=== PATIENT | male | born 1935 | race Caucasian/White ===

== ENCOUNTER 2018-02-28 01:00 | Inpatient (IN) | payer MEDICARE, BC ==
--- NOTE | 2018-02-28 01:58 | EDM.PDOC ---
ED HPI GENERAL MEDICAL PROBLEM - General Chief Complaint: Lower Extremity Injury/Pain Stated Complaint: right knee pain Time Seen by Provider: 02/28/18 01:10 Source of Information: Reports: Patient History Limitations: Reports: No Limitations - History of Present Illness INITIAL COMMENTS - FREE TEXT/NARRATIVE: Patient presents via ambulance with right knee pain, general weakness and mild fever. He couldn't get up from the couch tonight; his was helping him but he ended up on the floor and couldn't get up so they called the ambulance. He denies falling to the floor or any injury or pain from that. His right knee started hurting yesterday when he was helping his up from falling in the garage. He has had knee effusions on the right that have been drained in the past. 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(s) Right Knee Pain Score (Numeric/FACES): 8 - Related Data Allergies Allergy/AdvReac Type Severity Reaction Status Date / Time No Known Drug Allergies Allergy Other Verified 02/28/18 01:52 Home Meds: Home Meds Hydrochlorothiazide 25 mg PO DAILY 06/22/14 [History] Lisinopril [Prinivil] 20 mg PO DAILY 06/22/14 [History] Sertraline HCl 100 mg PO DAILY 06/22/14 [History] Simvastatin 20 mg PO BEDTIME 06/22/14 [History] oxyCODONE HCl [Oxycodone HCl] 10 mg PO DAILY 06/22/14 [History] Fluticasone Propionate [Flonase] 2 spray NASBOTH DAILY 12/24/14 [History] Metoprolol Succinate [Toprol XL] 25 mg PO DAILY 02/17/16 [History] Polyethylene Glycol 3350 [MiraLAX] 17 gm PO DAILY PRN 02/17/16 [History] Polyvinyl Alcohol [Tears Again] 1 drop OP ASDIRECTED 02/17/16 [History] Warfarin [Coumadin] 2.5 mg PO MOFR 03/27/16 [History] Famotidine [Pepcid AC] 20 mg PO DAILY #30 tablet 03/29/16 [Rx] metFORMIN [Glucophage] 1,000 mg PO BIDMEALS 05/22/16 [History] Folic Acid 1 mg PO DAILY 02/28/18 [History] Lidocaine 5% 1 applic TOP DAILY PRN 02/28/18 [History] Mirtazapine 7.5 mg PO BEDTIME 02/28/18 [History] Warfarin Sodium 5 mg PO SUTUWETHSA 02/28/18 [History] glyBURIDE [Micronase] 1.25 mg PO DAILY 02/28/18 [History] oxyCODONE 15 mg PO BEDTIME 02/28/18 [History] Past Medical History HEENT History: Reports: Cataract, Hard of Hearing, Impaired Vision Cardiovascular History: Reports: Afib, Arrhythmia, Blood Clots/VTE/DVT, Bypass, Heart Murmur, High Cholesterol, Hypertension, [place], Prior Cardiac Arrest Respiratory History: Reports: Pneumonia, Recurrent Gastrointestinal History: Reports: Chronic Constipation, Hemorrhoids Musculoskeletal History: Reports: Arthritis, Back Pain, Chronic, Gout Other Musculoskeletal History: 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 Neurological History: Reports: CVA Psychiatric History: Reports: Depression, Mood Swings Endocrine/Metabolic History: Reports: Diabetes, Type II - Past Surgical History HEENT Surgical History: Reports: Cataract Surgery Cardiovascular Surgical History: Reports: Coronary Artery Bypass, Other (See Below) GI Surgical History: Reports: Appendectomy, Colonoscopy, Other (See Below) Neurological Surgical History: Reports: Lumbar Spine, Spinal Fusion, Other (See Below) Musculoskeletal Surgical History: Reports: Other (See Below) Social & Family History - Tobacco Use Smoking Status *Q: Former Smoker Years of Tobacco use: 10 Packs/Tins Daily: 1 Used Tobacco, but Quit: Yes Month/Year Tobacco Last Used: august Second Hand Smoke Exposure: No - Alcohol Use Days Per Week of Alcohol Use: 0 - Recreational Drug Use Recreational Drug Use: No - Living Situation & Occupation Living situation: Reports: Occupation: Retired Review of Systems - Review of Systems Review Of Systems: See Below Constitutional: Reports: Fever. Denies: Chills Eyes: Reports: No Symptoms Ears: Reports: No Symptoms Nose: Reports: No Symptoms Mouth/Throat: Denies: Throat Swelling, Muffled Voice Respiratory: Denies: Shortness of Breath, Cough Cardiovascular: Denies: Chest Pain, Syncope GI/Abdominal: Denies: Diarrhea, Vomiting Genitourinary: Reports: Incontinence (and increased frequency) Musculoskeletal: Reports: Joint Pain (right knee) Skin: Denies: Cyanosis, Jaundice, Mottled, Pallor, Diaphoresis Neurological: Reports: Difficulty Walking, Weakness. Denies: Confusion, Seizure , Syncope, Trouble Speaking ED EXAM, GENERAL - Physical Exam Exam: See Below Exam Limited By: No Limitations General Appearance: Alert, WD/WN, No Apparent Distress Eye Exam: Bilateral Eye: EOMI, Normal Inspection, PERRL Ears: Normal External Exam, Hearing Grossly Normal Nose: Normal Inspection, No Blood Throat/Mouth: Normal Inspection, Normal Lips, Normal Voice, No Airway Compromise Head: Atraumatic, Normocephalic Neck: Normal Inspection, Full Range of Motion Respiratory/Chest: No Respiratory Distress, Lungs Clear, Normal Breath Sounds, No Accessory Muscle Use. No: Crackles, Rales, Rhonchi, Wheezing, Stridor Cardiovascular: Irregularly Irregular GI/Abdominal: Normal Bowel Sounds, Soft, Non-Tender, No Organomegaly, No Distention Back Exam: No: CVA Tenderness (L), CVA Tenderness (R) Extremities: Leg Pain (right lateral knee but not red or swollen. ROM is okay.) . No: Joint Swelling, Increased Warmth Neurological: Alert, Oriented, Normal Cognition, No Motor/Sensory Deficits Psychiatric: Normal Affect, Normal Mood Skin Exam: Warm, Dry, Intact, Normal Color, No Rash Course - Vital Signs Last Recorded V/S: Last Vital Signs Temp 100.7 F H 02/28/18 01:12 Pulse 100 02/28/18 01:12 Resp 18 02/28/18 01:12 BP 135/58 L 02/28/18 01:12 Pulse Ox 99 02/28/18 01:12 - Orders/Labs/Meds Orders: Active Orders 24 hr Category Date Time Status Patient Status Manage Transfer [TRANSFER] Routine ADT 02/28/18 03:20 Ordered Patient Status [ADT] Routine ADT 02/28/18 03:16 Ordered Knee 3V Rt [CR] Routine Exams 02/28/18 01:15 Taken CULTURE BLOOD [BC] Stat Lab 02/28/18 02:33 Received CULTURE BLOOD [BC] Stat Lab 02/28/18 02:44 Received CULTURE URINE [RM] Stat Lab 02/28/18 02:00 Received UA W/MICROSCOPIC [URIN] Stat Lab 02/28/18 02:00 Ordered Blood Culture x2 Reflex Set [OM.PC] Stat Oth 02/28/18 02:11 Ordered Labs: Laboratory Tests 02/28/18 02/28/18 02/28/18 Range/Units 01:43 01:43 02:00 WBC 15.6 H (5.0-10.0) 10^3/uL RBC 3.47 L (4.50-6.00) 10^6/uL Hgb 10.6 L (13.0-17.0) g/dL Hct 30.8 L (40.0-52.0) % MCV 88.7 D (82.0-92.0) fL MCH 30.5 (27.0-31.0) pg MCHC 34.4 (32.0-36.0) g/dL RDW 12.5 (11.5-14.5) % Plt Count 207 (150-300) 10^3/uL MPV 9.8 (7.4-10.4) fL Neut % (Auto) 72.8 H (50.0-70.0) % Lymph % (Auto) 16.7 L (20.0-40.0) % [place] % (Auto) 9.1 H (2.0-8.0) % Eos % (Auto) 0.8 L (1.0-3.0) % Baso % (Auto) 0.6 (0.0-1.0) % Neut # (Auto) 11.4 H (2.5-7.0) 10^3/uL Lymph # (Auto) 2.6 (1.0-4.0) 10^3/uL [place] # (Auto) 1.4 H (0.1-0.8) 10^3/uL Eos # (Auto) 0.1 (0.1-0.3) 10^3/uL Baso # (Auto) 0.1 (0.0-0.1) 10^3/uL Sodium 141 (136-145) mmol/L Potassium 3.9 (3.3-5.3) mmol/L Chloride 103 (98-115) mmol/L Carbon Dioxide 27.3 (21.0-32.0) mmol/L BUN 32 H (6-25) mg/dL Creatinine 1.35 H (0.51-1.17) mg/dL Est Cr Clr Drug Dosing 44.93 mL/min Estimated GFR (MDRD) 51 mL/min Glucose 160 H (70-110) mg/dL Lactic Acid (0.4-2.0) mmol/L Calcium 8.9 (8.7-10.3) mg/dL C-Reactive Protein 5.1 H (0.0-0.9) mg/dL Specimen Type Urinblad Urine Color Yellow (YELLOW) Urine Appearance Slightly cloudy H (CLEAR) Urine pH 5.0 (5.0-9.0) Ur Specific [place] 1.025 (1.005-1.030) Urine Protein Negative (NEGATIVE) mg/dL Urine Glucose (UA) Negative (NEGATIVE) mg/dL Urine Ketones Trace H (NEGATIVE) mg/dL Urine Occult Blood Moderate H (NEGATIVE) Urine Nitrite Negative (NEGATIVE) Urine Bilirubin Negative (NEGATIVE) Urine Urobilinogen 0.2 (0.2-1.0) E.U./dL Ur Leukocyte Esterase Negative (NEGATIVE) Urine RBC 75-100 H /HPF Urine WBC 0-5 /HPF Ur Epithelial Cells Rare /LPF Urine Bacteria Not seen (NONE TO FEW) /HPF Urine Mucus Rare H (NEGATIVE) /LPF 02/28/18 Range/Units 02:33 WBC (5.0-10.0) 10^3/uL RBC (4.50-6.00) 10^6/uL Hgb (13.0-17.0) g/dL Hct (40.0-52.0) % MCV (82.0-92.0) fL MCH (27.0-31.0) pg MCHC (32.0-36.0) g/dL RDW (11.5-14.5) % Plt Count (150-300) 10^3/uL MPV (7.4-10.4) fL Neut % (Auto) (50.0-70.0) % Lymph % (Auto) (20.0-40.0) % [place] % (Auto) (2.0-8.0) % Eos % (Auto) (1.0-3.0) % Baso % (Auto) (0.0-1.0) % Neut # (Auto) (2.5-7.0) 10^3/uL Lymph # (Auto) (1.0-4.0) 10^3/uL [place] # (Auto) (0.1-0.8) 10^3/uL Eos # (Auto) (0.1-0.3) 10^3/uL Baso # (Auto) (0.0-0.1) 10^3/uL Sodium (136-145) mmol/L Potassium (3.3-5.3) mmol/L Chloride (98-115) mmol/L Carbon Dioxide (21.0-32.0) mmol/L BUN (6-25) mg/dL Creatinine (0.51-1.17) mg/dL Est Cr Clr Drug Dosing mL/min Estimated GFR (MDRD) mL/min Glucose (70-110) mg/dL Lactic Acid 3.0 H (0.4-2.0) mmol/L Calcium (8.7-10.3) mg/dL C-Reactive Protein (0.0-0.9) mg/dL Specimen Type Urine Color (YELLOW) Urine Appearance (CLEAR) Urine pH (5.0-9.0) Ur Specific [place] (1.005-1.030) Urine Protein (NEGATIVE) mg/dL Urine Glucose (UA) (NEGATIVE) mg/dL Urine Ketones (NEGATIVE) mg/dL Urine Occult Blood (NEGATIVE) Urine Nitrite (NEGATIVE) Urine Bilirubin (NEGATIVE) Urine Urobilinogen (0.2-1.0) E.U./dL Ur Leukocyte Esterase (NEGATIVE) Urine RBC /HPF Urine WBC /HPF Ur Epithelial Cells /LPF Urine Bacteria (NONE TO FEW) /HPF Urine Mucus (NEGATIVE) /LPF - Re-Assessments/Exams Free Text/Narrative Re-Assessment/Exam: 02/28/18 03:32 Elevated WBC, ANC, CRP, Lactic acid. Discussed findings with Dr. Richardson who accepted for admission. Patient remained stable throughout ER course. Departure - Departure Time of Disposition: 03:30 Disposition: Admitted As Inpatient 66 Condition: Good Clinical Impression: Afib, Atrial fibrillation and flutter, Leukocytosis Fever Qualifiers: Fever type: unspecified Qualified Code(s): R50.9 - Fever, unspecified - Discharge Information Forms: ED Department Discharge - My Orders Last 24 Hours: My Active Orders 02/28/18 01:15 Knee 3V Rt [CR] Routine 02/28/18 02:00 CULTURE URINE [RM] Stat UA W/MICROSCOPIC [URIN] Stat 02/28/18 02:11 Blood Culture x2 Reflex Set [OM.PC] Stat 02/28/18 02:33 CULTURE BLOOD [BC] Stat 02/28/18 02:44 CULTURE BLOOD [BC] Stat 02/28/18 03:16 Patient Status [ADT] Routine 02/28/18 03:20 Patient Status Manage Transfer [TRANSFER] Routine - Assessment/Plan Last 24 Hours: My Active Orders 02/28/18 01:15 Knee 3V Rt [CR] Routine 02/28/18 02:00 CULTURE URINE [RM] Stat UA W/MICROSCOPIC [URIN] Stat 02/28/18 02:11 Blood Culture x2 Reflex Set [OM.PC] Stat 02/28/18 02:33 CULTURE BLOOD [BC] Stat 02/28/18 02:44 CULTURE BLOOD [BC] Stat 02/28/18 03:16 Patient Status [ADT] Routine 02/28/18 03:20 Patient Status Manage Transfer [TRANSFER] Routine
[2018-02-28] MEDS ORDERED: Polyethylene Glycol 3350 Powder 17 GM Packet PO PRN (04:14)
[2018-02-28] MEDS ORDERED: POLYVINYL ALCOHOL OP SCH (04:14)
[2018-02-28] MEDS ORDERED: methylPREDNISolone Sodium Succinate 125 MG/2 ML SDV IVPUSH ONE (04:14)
[2018-02-28] MEDS ORDERED: cefTRIAXone 1 GM Vial IVPUSH ONE (04:14)
[2018-02-28] MEDS ORDERED: Warfarin 5 MG Tab PO SCH ×3 (04:14→12:15)
[2018-02-28] MEDS ORDERED: Acetaminophen 325 MG Tab PO PRN (04:15)
[2018-02-28] MEDS ORDERED: Lidocaine 5% 700 MG Patch TRDERM PRN (04:45)
[2018-02-28] MEDS: Metoprolol Succinate 25 MG Tab.ER PO SCH (08:44)
[2018-02-28] MEDS: oxyCODONE 5 MG Tab PO SCH ×2 (08:46→20:20)
[2018-02-28] MEDS: Hydrochlorothiazide 25 MG Tab PO SCH (08:46)
[2018-02-28] MEDS: Folic Acid 1 MG Tab PO SCH (08:46)
[2018-02-28] MEDS: Sertraline 50 MG Tab PO SCH (08:47)
[2018-02-28] MEDS: Lisinopril 20 MG Tab PO SCH (08:47)
[2018-02-28] MEDS: metFORMIN 500 MG Tab PO SCH (08:48)
[2018-02-28] MEDS ORDERED: GLYBURIDE 1.25 MG PO SCH (09:00)
[2018-02-28] MEDS ORDERED: Fluticasone Propionate Nasal Spray 16 GM Bottle NASBOTH SCH (09:00)
[2018-02-28] MEDS ORDERED: Famotidine 20 MG Tab PO SCH (09:00)
[2018-02-28] MEDS ORDERED: Fluticasone Propionate Nasal Spray 16 GM Bottle NASBOTH PRN (09:30)
[2018-02-28] MEDS ORDERED: glyBURIDE 5 MG Tab PO SCH ×2 (09:30)
--- NOTE | 2018-02-28 10:19 | PCM.HP ---
H&P History of Present Illness - General Date of Service: 02/28/18 Admit Problem/Dx: Admission Diagnosis/Problem Admission Diagnosis/Problem Fever Source of Information: Patient, Old Records, RN History Limitations: Reports: No Limitations Right Knee Pain Score (Numeric/FACES): 4 - Related Data Allergies/Adverse Reactions: Allergies Allergy/AdvReac Type Severity Reaction Status Date / Time No Known Drug Allergies Allergy Other Verified 02/28/18 01:52 Home Medications: Home Meds Hydrochlorothiazide 25 mg PO DAILY 06/22/14 [History] Lisinopril [Prinivil] 20 mg PO DAILY 06/22/14 [History] Sertraline HCl 100 mg PO DAILY 06/22/14 [History] Simvastatin 20 mg PO BEDTIME 06/22/14 [History] oxyCODONE HCl [Oxycodone HCl] 10 mg PO DAILY 06/22/14 [History] Fluticasone Propionate [Flonase] 2 spray NASBOTH DAILY PRN 12/24/14 [History] Metoprolol Succinate [Toprol XL] 25 mg PO DAILY 02/17/16 [History] Polyethylene Glycol 3350 [MiraLAX] 17 gm PO DAILY PRN 02/17/16 [History] Polyvinyl Alcohol [Tears Again] 1 drop OP ASDIRECTED PRN 02/17/16 [History] Warfarin [Coumadin] 2.5 mg PO MOFR 03/27/16 [History] Famotidine [Pepcid AC] 20 mg PO DAILY #30 tablet 03/29/16 [Rx] metFORMIN [Glucophage] 1,000 mg PO BIDMEALS 05/22/16 [History] Folic Acid 1 mg PO DAILY 02/28/18 [History] Lidocaine 5% 1 applic TOP DAILY PRN 02/28/18 [History] Mirtazapine 7.5 mg PO BEDTIME 02/28/18 [History] Warfarin Sodium 5 mg PO SUTUWETHSA 02/28/18 [History] glyBURIDE [Micronase] 1.25 mg PO DAILY 02/28/18 [History] oxyCODONE 15 mg PO BEDTIME 02/28/18 [History] Past Medical History HEENT History: Reports: Cataract, Hard of Hearing, Impaired Vision Cardiovascular History: Reports: Afib, Arrhythmia, Blood Clots/VTE/DVT, Bypass, Heart Murmur, High Cholesterol, Hypertension, [place], Prior Cardiac Arrest Respiratory History: Reports: Pneumonia, Recurrent Gastrointestinal History: Reports: Chronic Constipation, Hemorrhoids Musculoskeletal History: Reports: Arthritis, Back Pain, Chronic, Gout Other Musculoskeletal History: 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 Neurological History: Reports: CVA Psychiatric History: Reports: Depression, Mood Swings Endocrine/Metabolic History: Reports: Diabetes, Type II Hematologic History: Reports: Anticoagulation Therapy - Infectious Disease History Infectious Disease History: Reports: Measles, Mumps - Past Surgical History HEENT Surgical History: Reports: Cataract Surgery Cardiovascular Surgical History: Reports: Coronary Artery Bypass, Other (See Below) GI Surgical History: Reports: Appendectomy, Colonoscopy, Other (See Below) Neurological Surgical History: Reports: Lumbar Spine, Spinal Fusion, Other (See Below) Musculoskeletal Surgical History: Reports: Other (See Below) Social & Family History - Tobacco Use Smoking Status *Q: Former Smoker Years of Tobacco use: 10 Packs/Tins Daily: 1 Used Tobacco, but Quit: Yes Month/Year Tobacco Last Used: august Second Hand Smoke Exposure: No - Caffeine Use Caffeine Use: Reports: Soda - Alcohol Use Days Per Week of Alcohol Use: 0 - Recreational Drug Use Recreational Drug Use: No - Living Situation & Occupation Living situation: Reports: Occupation: Retired H&P Review of Systems - Review of Systems: Review Of Systems: See Below General: Reports: Weakness, Night Sweats HEENT: Reports: Other (Heart appearing) Pulmonary: Reports: No Symptoms Cardiovascular: Reports: No Symptoms Gastrointestinal: Denies: Melena Genitourinary: Reports: No Symptoms Musculoskeletal: Reports: Joint Pain (Right knee) Skin: Reports: No Symptoms Psychiatric: Reports: Confusion (Very mild confusion) Neurological: Reports: Pre-Existing Deficit, Difficulty Walking, Weakness, Gait Disturbance. Denies: Paresthesia Hematologic/Lymphatic: Reports: No Symptoms Immunologic: Reports: No Symptoms Exam - Exam Exam: See Below - Vital Signs Vital Signs: Last Vital Signs Temp 99.2 F 02/28/18 06:53 Pulse 91 02/28/18 08:44 Resp 20 02/28/18 06:53 BP 133/74 02/28/18 08:47 Pulse Ox 98 02/28/18 07:00 Weight: 198 lb - Exam Quality Assessment: No: Supplemental Oxygen General: Alert, Oriented, Cooperative. No: Mild Distress HEENT: No: Hearing Intact Neck: Supple. No: JVD Lungs: Clear to Auscultation, Normal Respiratory Effort Cardiovascular: Irregular Rhythm GI/Abdominal Exam: Soft Rectal (Males) Exam: Deferred Back Exam: No: CVA Tenderness (L), CVA Tenderness (R) Extremities: No Pedal Edema, Other (Right knee painful point tenderness lateral patella, some bogginess medial patella) Skin: Warm, Dry, Intact Neurological: Normal Speech Neuro Extensive - Mental Status: Alert, Oriented x3. No: Memory Intact Neuro Extensive - Motor, Sensory, Reflexes: No: Normal Gait Psychiatric: Alert, Normal Affect, Normal Mood - Patient Data Lab Results Last 24 hrs: Laboratory Results - last 24 hr 02/28/18 02/28/18 02/28/18 Range/Units 01:43 01:43 02:00 WBC 15.6 H (5.0-10.0) 10^3/uL RBC 3.47 L (4.50-6.00) 10^6/uL Hgb 10.6 L (13.0-17.0) g/dL Hct 30.8 L (40.0-52.0) % MCV 88.7 D (82.0-92.0) fL MCH 30.5 (27.0-31.0) pg MCHC 34.4 (32.0-36.0) g/dL RDW 12.5 (11.5-14.5) % Plt Count 207 (150-300) 10^3/uL MPV 9.8 (7.4-10.4) fL Neut % (Auto) 72.8 H (50.0-70.0) % Lymph % (Auto) 16.7 L (20.0-40.0) % [place] % (Auto) 9.1 H (2.0-8.0) % Eos % (Auto) 0.8 L (1.0-3.0) % Baso % (Auto) 0.6 (0.0-1.0) % Neut # (Auto) 11.4 H (2.5-7.0) 10^3/uL Lymph # (Auto) 2.6 (1.0-4.0) 10^3/uL [place] # (Auto) 1.4 H (0.1-0.8) 10^3/uL Eos # (Auto) 0.1 (0.1-0.3) 10^3/uL Baso # (Auto) 0.1 (0.0-0.1) 10^3/uL Sodium 141 (136-145) mmol/L Potassium 3.9 (3.3-5.3) mmol/L Chloride 103 (98-115) mmol/L Carbon Dioxide 27.3 (21.0-32.0) mmol/L BUN 32 H (6-25) mg/dL Creatinine 1.35 H (0.51-1.17) mg/dL Est Cr Clr Drug Dosing 44.93 mL/min Estimated GFR (MDRD) 51 mL/min Glucose 160 H (70-110) mg/dL POC Glucose (74-106) mg/dl Lactic Acid (0.4-2.0) mmol/L Calcium 8.9 (8.7-10.3) mg/dL C-Reactive Protein 5.1 H (0.0-0.9) mg/dL Specimen Type Urinblad Urine Color Yellow (YELLOW) Urine Appearance Slightly cloudy H (CLEAR) Urine pH 5.0 (5.0-9.0) Ur Specific [place] 1.025 (1.005-1.030) Urine Protein Negative (NEGATIVE) mg/dL Urine Glucose (UA) Negative (NEGATIVE) mg/dL Urine Ketones Trace H (NEGATIVE) mg/dL Urine Occult Blood Moderate H (NEGATIVE) Urine Nitrite Negative (NEGATIVE) Urine Bilirubin Negative (NEGATIVE) Urine Urobilinogen 0.2 (0.2-1.0) E.U./dL Ur Leukocyte Esterase Negative (NEGATIVE) Urine RBC 75-100 H /HPF Urine WBC 0-5 /HPF Ur Epithelial Cells Rare /LPF Urine Bacteria Not seen (NONE TO FEW) /HPF Urine Mucus Rare H (NEGATIVE) /LPF 02/28/18 02/28/18 Range/Units 02:33 07:25 WBC (5.0-10.0) 10^3/uL RBC (4.50-6.00) 10^6/uL Hgb (13.0-17.0) g/dL Hct (40.0-52.0) % MCV (82.0-92.0) fL MCH (27.0-31.0) pg MCHC (32.0-36.0) g/dL RDW (11.5-14.5) % Plt Count (150-300) 10^3/uL MPV (7.4-10.4) fL Neut % (Auto) (50.0-70.0) % Lymph % (Auto) (20.0-40.0) % [place] % (Auto) (2.0-8.0) % Eos % (Auto) (1.0-3.0) % Baso % (Auto) (0.0-1.0) % Neut # (Auto) (2.5-7.0) 10^3/uL Lymph # (Auto) (1.0-4.0) 10^3/uL [place] # (Auto) (0.1-0.8) 10^3/uL Eos # (Auto) (0.1-0.3) 10^3/uL Baso # (Auto) (0.0-0.1) 10^3/uL Sodium (136-145) mmol/L Potassium (3.3-5.3) mmol/L Chloride (98-115) mmol/L Carbon Dioxide (21.0-32.0) mmol/L BUN (6-25) mg/dL Creatinine (0.51-1.17) mg/dL Est Cr Clr Drug Dosing mL/min Estimated GFR (MDRD) mL/min Glucose (70-110) mg/dL POC Glucose 201 H (74-106) mg/dl Lactic Acid 3.0 H (0.4-2.0) mmol/L Calcium (8.7-10.3) mg/dL C-Reactive Protein (0.0-0.9) mg/dL Specimen Type Urine Color (YELLOW) Urine Appearance (CLEAR) Urine pH (5.0-9.0) Ur Specific [place] (1.005-1.030) Urine Protein (NEGATIVE) mg/dL Urine Glucose (UA) (NEGATIVE) mg/dL Urine Ketones (NEGATIVE) mg/dL Urine Occult Blood (NEGATIVE) Urine Nitrite (NEGATIVE) Urine Bilirubin (NEGATIVE) Urine Urobilinogen (0.2-1.0) E.U./dL Ur Leukocyte Esterase (NEGATIVE) Urine RBC /HPF Urine WBC /HPF Ur Epithelial Cells /LPF Urine Bacteria (NONE TO FEW) /HPF Urine Mucus (NEGATIVE) /LPF Result Diagrams: 02/28/18 01:43 02/28/18 01:43 Problem List Initiated/Reviewed/Updated: Yes Orders Last 24hrs: Active Orders 24 hr Category Date Time Status Blood Glucose Check, Bedside [RC] BIDMEALS Care 02/28/18 04:14 Active Oxygen Therapy [RC] PRN Care 02/28/18 04:14 Active Up With Assistance [RC] ASDIRECTED Care 02/28/18 04:14 Active VTE/DVT Education [RC] PER UNIT ROUTINE Care 02/28/18 04:14 Active Vital Signs [RC] Q4H Care 02/28/18 04:14 Active [place] [employer] Diet [DIET] Diet 02/28/18 Breakfast Active CULTURE BLOOD [BC] Stat Lab 02/28/18 02:33 Received CULTURE BLOOD [BC] Stat Lab 02/28/18 02:44 Received CULTURE URINE [RM] Stat Lab 02/28/18 02:00 Received INR,PT,PROTHROMBIN TIME [COAG] Routine Lab 02/28/18 09:36 Ordered Acetaminophen [Tylenol] Med 02/28/18 04:15 Active 650 mg PO Q4H PRN Carboxymethylcellulose Sodium [Refresh Tears 0.5%] Med 02/28/18 21:00 Active 0 ml EYEBOTH BID PRN Famotidine [Pepcid] Med 03/01/18 07:30 Active 20 mg PO ACBREAKFAST Fluticasone Propionate [Flonase] Med 02/28/18 09:30 Active 0 gm NASBOTH DAILY PRN Folic Acid Med 02/28/18 09:00 Active 1 mg PO DAILY Hydrochlorothiazide Med 02/28/18 09:00 Active 25 mg PO DAILY Lidocaine 5% [Lidoderm 5%] Med 02/28/18 04:45 Active 700 mg TRDERM DAILY PRN Lisinopril [Prinivil] Med 02/28/18 09:00 Active 20 mg PO DAILY Metoprolol Succinate [Toprol XL] Med 02/28/18 09:00 Active 25 mg PO DAILY Mirtazapine [Remeron] Med 02/28/18 21:00 Active 7.5 mg PO BEDTIME Polyethylene Glycol 3350 [MiraLAX] Med 02/28/18 04:14 Active 17 gm PO DAILY PRN Remove Patch Med 02/28/18 21:00 Active 1 ea TRDERM BEDTIME PRN Sertraline [Zoloft] Med 02/28/18 09:00 Active 100 mg PO DAILY Simvastatin [Zocor] Med 02/28/18 21:00 Active 20 mg PO BEDTIME Warfarin [Coumadin] Med 03/01/18 09:00 Active 2.5 mg PO MOFR Warfarin [Coumadin] Med 02/28/18 09:00 Hold 5 mg PO SUTUWETHSA cefTRIAXone [Rocephin] Med 02/28/18 16:00 Ordered 1 gm IVPUSH Q24H glyBURIDE [Micronase] Med 02/28/18 09:30 Hold 1.25 mg PO WITHBREAKFAST metFORMIN [Glucophage] Med 02/28/18 08:00 Active 1,000 mg PO BIDMEALS oxyCODONE Med 02/28/18 09:00 Active 10 mg PO DAILY oxyCODONE Med 02/28/18 21:00 Active 15 mg PO BEDTIME Medication Orders Acetaminophen (Tylenol) 650 mg PO Q4H PRN PRN Reason: Fever Artificial Tears (Refresh Tears 0.5%) 0 ml EYEBOTH BID PRN PRN Reason: dry eye Ceftriaxone Sodium (Rocephin) 1 gm IVPUSH Q24H TAMIR Famotidine (Pepcid) 20 mg PO ACBREAKFAST [facility] Fluticasone Propionate (Flonase) 0 gm NASBOTH DAILY PRN PRN Reason: congestion Folic Acid (Folic Acid) 1 mg PO DAILY [facility] Last Admin: 02/28/18 08:46 Dose: 1 mg Glyburide (Micronase) 1.25 mg PO WITHBREAKFAST [facility] Last Admin: 02/28/18 10:02 Dose: 1.25 mg Hydrochlorothiazide (Hydrochlorothiazide) 25 mg PO DAILY [facility] Last Admin: 02/28/18 08:46 Dose: 25 mg Lidocaine (Lidoderm 5%) 700 mg TRDERM DAILY PRN PRN Reason: Pain Lisinopril (Prinivil) 20 mg PO DAILY [facility] Last Admin: 02/28/18 08:47 Dose: 20 mg Metformin HCl (Glucophage) 1,000 mg PO BIDMEALS [facility] Last Admin: 02/28/18 08:48 Dose: 1,000 mg Metoprolol Succinate (Toprol Xl) 25 mg PO DAILY [facility] Last Admin: 02/28/18 08:44 Dose: 25 mg Mirtazapine (Remeron) 7.5 mg PO BEDTIME [facility] Miscellaneous Information (Remove Patch) 1 ea TRDERM BEDTIME PRN PRN Reason: remove patch Oxycodone HCl (Oxycodone) 15 mg PO BEDTIME TAMIR Oxycodone HCl (Oxycodone) 10 mg PO DAILY [facility] Last Admin: 02/28/18 08:46 Dose: 10 mg Polyethylene Glycol (Miralax) 17 gm PO DAILY PRN PRN Reason: Constipation Sertraline HCl (Zoloft) 100 mg PO DAILY [facility] Last Admin: 02/28/18 08:47 Dose: 100 mg Simvastatin (Zocor) 20 mg PO BEDTIME TAMIR Warfarin Sodium (Coumadin) 5 mg PO SUTUWETHSA TAMIR Warfarin Sodium (Coumadin) 2.5 mg PO MOFR [facility] Assessment/Plan Comment:: 82 y/o male with long standing RA along with right knee effusions/draining in past present to ED with Right knee pain that was acutely exacerabated after he was assisting lifting his own from her falling the day prior. He c/o slight fever, weakness when patient could not get up from cough at home-- ambulance was called to home to assist. Denies fall himself. Does have hx of RA Pertinent ED Workup Elevated Inflammatory markers fever (100.7) Neg Knee Xray Impression; Fever unknow orign, possible imflammatory RA, broader diff septic arthritic right knee. LIkely will need aspiration, Hold off any steroids if possible septic joint, will monitor and cont abx. Repeat labs in am. CxR today. BC, Urine cx pending.
[2018-02-28] MEDS: cefTRIAXone 1 GM Vial IVPUSH SCH (16:03)
[2018-02-28] MEDS ORDERED: Insulin Detemir 100 Units/ML 3 ML Pen SUBCUT SCH (18:10)
[2018-02-28] MEDS: Mirtazapine 15 MG Tab PO SCH (20:20)
[2018-02-28] MEDS: Simvastatin 20 MG Tab PO SCH (20:20)
[2018-02-28] MEDS ORDERED: Carboxymethylcellulose Sodium 0.5% Ophth Soln 15 ML Bottle EYEBOTH PRN (21:00)
[2018-03-01] MEDS ORDERED: Warfarin 5 MG Tab PO SCH ×3 (03:22→09:00)
[2018-03-01 07:46] LABS: CHLORIDE,CL 104 mmol/L (98-115); SODIUM,NA 141 mmol/L (136-145)
[2018-03-01] MEDS: Famotidine 20 MG Tab PO SCH (08:00)
--- NOTE | 2018-03-01 08:59 | OR ---
DATE OF SURGERY: 02/28/2018 SURGEON: Anne Sawant MD PREOPERATIVE DIAGNOSIS: Moderate swelling/effusion of the right knee. PREOPERATIVE DIAGNOSIS: Moderate swelling/effusion of the right knee. OPERATION PERFORMED: Aspiration of the right knee INFORMED CONSENT: Informed consent was obtained from the patient regarding this procedure. As he was symptomatic, we felt that we would proceed with aspiration. He gave his consent. DESCRIPTION OF PROCEDURE: He was kept in the sitting position. The knee was thoroughly prepped with ChloraPrep. The needle tract was anesthetized with lidocaine 1% using a 25-gauge needle. We used the anterolateral approach. After that, I introduced an 18-gauge needle and aspirated approximately 25 mL of straw-colored fluid. The fluid was sent for joint fluid analysis. Approximately 10 mL of Marcaine 0.5% was reinstilled into the joint for comfort. The pressure dressing was applied. The patient tolerated the procedure very well. Follow up in a.m. /[id number]/MODL
[2018-03-01] MEDS ORDERED: Warfarin 2.5 MG Tab PO SCH (09:00)
[2018-03-01] MEDS: oxyCODONE 5 MG Tab PO SCH ×2 (09:27→20:37)
[2018-03-01] MEDS: Sertraline 50 MG Tab PO SCH (09:30)
[2018-03-01] MEDS: Lisinopril 20 MG Tab PO SCH (09:30)
[2018-03-01] MEDS: Metoprolol Succinate 25 MG Tab.ER PO SCH (09:31)
[2018-03-01] MEDS: Hydrochlorothiazide 25 MG Tab PO SCH (09:32)
[2018-03-01] MEDS: Folic Acid 1 MG Tab PO SCH (09:32)
[2018-03-01] MEDS: Insulin Detemir 100 Units/ML 3 ML Pen SUBCUT SCH ×2 (09:33→20:47)
[2018-03-01] MEDS: predniSONE 20 MG Tab PO SCH (09:48)
[2018-03-01] MEDS: cefTRIAXone 1 GM Vial IVPUSH SCH (16:20)
[2018-03-01] MEDS: Simvastatin 20 MG Tab PO SCH (20:38)
--- NOTE | 2018-03-01 21:16 | PCM.PN ---
- General Info Date of Service: 03/01/18 Subjective Update: Mr. Ernst reports his knee feeling better this morning since drainage last night. Denies new symptoms or concerns. Further history is difficult to obtain given patient's underlying dementia. Nursing and physical therapy both noted overall poor ambulatory functional status. - Review of Systems General: Reports: Malaise - Patient Data Vitals - Most Recent: Last Vital Signs Temp 36.8 C 03/01/18 15:00 Pulse 81 03/01/18 15:00 Resp 16 03/01/18 15:00 BP 125/66 03/01/18 15:00 Pulse Ox 97 03/01/18 15:00 Weight - Most Recent: 89.811 kg I&O - Last 24 Hours: Intake & Output 03/01/18 03/01/18 03/01/18 06:59 14:59 22:59 Intake Total 50 640 Output Total 450 Balance 50 190 Lab Results Last 24 Hours: Laboratory Results - last 24 hr 02/28/18 03/01/18 03/01/18 Range/Units 21:23 07:20 07:20 WBC 15.4 H (5.0-10.0) 10^3/uL RBC 3.31 L (4.50-6.00) 10^6/uL Hgb 9.8 L (13.0-17.0) g/dL Hct 30.0 L (40.0-52.0) % MCV 90.5 (82.0-92.0) fL MCH 29.7 (27.0-31.0) pg MCHC 32.8 (32.0-36.0) g/dL RDW 12.0 (11.5-14.5) % Plt Count 220 (150-300) 10^3/uL MPV 9.4 (7.4-10.4) fL Neut % (Auto) 72.0 H (50.0-70.0) % Lymph % (Auto) 18.5 L (20.0-40.0) % [place] % (Auto) 8.4 H (2.0-8.0) % Eos % (Auto) 0.6 L (1.0-3.0) % Baso % (Auto) 0.5 (0.0-1.0) % Neut # (Auto) 11.1 H (2.5-7.0) 10^3/uL Lymph # (Auto) 2.8 (1.0-4.0) 10^3/uL [place] # (Auto) 1.3 H (0.1-0.8) 10^3/uL Eos # (Auto) 0.1 (0.1-0.3) 10^3/uL Baso # (Auto) 0.1 (0.0-0.1) 10^3/uL PT (8.9-11.4) SEC INR (0.9-1.1) Sodium 141 (136-145) mmol/L Potassium 4.0 (3.3-5.3) mmol/L Chloride 104 (98-115) mmol/L Carbon Dioxide 28.8 (21.0-32.0) mmol/L BUN 34 H (6-25) mg/dL Creatinine 1.01 (0.51-1.17) mg/dL Est Cr Clr Drug Dosing 61.89 mL/min Estimated GFR (MDRD) > 60 mL/min Glucose 138 H (70-110) mg/dL POC Glucose 258 H (74-106) mg/dl Lactic Acid (0.4-2.0) mmol/L Calcium 8.7 (8.7-10.3) mg/dL C-Reactive Protein 7.4 H (0.0-0.9) mg/dL 03/01/18 03/01/18 03/01/18 Range/Units 07:20 07:20 20:44 WBC (5.0-10.0) 10^3/uL RBC (4.50-6.00) 10^6/uL Hgb (13.0-17.0) g/dL Hct (40.0-52.0) % MCV (82.0-92.0) fL MCH (27.0-31.0) pg MCHC (32.0-36.0) g/dL RDW (11.5-14.5) % Plt Count (150-300) 10^3/uL MPV (7.4-10.4) fL Neut % (Auto) (50.0-70.0) % Lymph % (Auto) (20.0-40.0) % [place] % (Auto) (2.0-8.0) % Eos % (Auto) (1.0-3.0) % Baso % (Auto) (0.0-1.0) % Neut # (Auto) (2.5-7.0) 10^3/uL Lymph # (Auto) (1.0-4.0) 10^3/uL [place] # (Auto) (0.1-0.8) 10^3/uL Eos # (Auto) (0.1-0.3) 10^3/uL Baso # (Auto) (0.0-0.1) 10^3/uL PT 23.8 H D (8.9-11.4) SEC INR 2.4 H (0.9-1.1) Sodium (136-145) mmol/L Potassium (3.3-5.3) mmol/L Chloride (98-115) mmol/L Carbon Dioxide (21.0-32.0) mmol/L BUN (6-25) mg/dL Creatinine (0.51-1.17) mg/dL Est Cr Clr Drug Dosing mL/min Estimated GFR (MDRD) mL/min Glucose (70-110) mg/dL POC Glucose 297 H (74-106) mg/dl Lactic Acid 0.9 (0.4-2.0) mmol/L Calcium (8.7-10.3) mg/dL C-Reactive Protein (0.0-0.9) mg/dL Jorge Results Last 24 Hours: Microbiology 02/28/18 02:00 Urine Culture - Preliminary Urine, Bladder NO GROWTH AFTER 1 DAY 02/28/18 02:44 Aerobic Blood Culture - Preliminary Blood - Venous - Lab Draw NO GROWTH AFTER 1 DAY Anaerobic Blood Culture - Preliminary NO GROWTH AFTER 1 DAY 02/28/18 02:33 Aerobic Blood Culture - Preliminary Blood - Venous NO GROWTH AFTER 1 DAY Anaerobic Blood Culture - Preliminary NO GROWTH AFTER 1 DAY Med Orders - Current: Current Medications Acetaminophen (Tylenol) 650 mg PO Q4H PRN PRN Reason: Fever Last Admin: 03/01/18 13:33 Dose: 650 mg Artificial Tears (Refresh Tears 0.5%) 0 ml EYEBOTH BID PRN PRN Reason: dry eye Ceftriaxone Sodium (Rocephin) 1 gm IVPUSH Q24H [facility] Last Admin: 03/01/18 16:20 Dose: 1 gm Famotidine (Pepcid) 20 mg PO ACBREAKFAST [facility] Last Admin: 03/01/18 08:00 Dose: 20 mg Fluticasone Propionate (Flonase) 0 gm NASBOTH DAILY PRN PRN Reason: congestion Folic Acid (Folic Acid) 1 mg PO DAILY [facility] Last Admin: 03/01/18 09:32 Dose: 1 mg Glyburide (Micronase) 1.25 mg PO WITHBREAKFAST [facility] Last Admin: 02/28/18 10:02 Dose: 1.25 mg Hydrochlorothiazide (Hydrochlorothiazide) 25 mg PO DAILY [facility] Last Admin: 03/01/18 09:32 Dose: 25 mg Insulin Detemir (Levemir) 15 unit SUBCUT BID [facility] Last Admin: 03/01/18 20:47 Dose: 15 units Lidocaine (Lidoderm 5%) 700 mg TRDERM DAILY PRN PRN Reason: Pain Lisinopril (Prinivil) 20 mg PO DAILY [facility] Last Admin: 03/01/18 09:30 Dose: 20 mg Metformin HCl (Glucophage) 1,000 mg PO BIDMEALS [facility] Last Admin: 02/28/18 08:48 Dose: 1,000 mg Metoprolol Succinate (Toprol Xl) 25 mg PO DAILY [facility] Last Admin: 03/01/18 09:31 Dose: 25 mg Mirtazapine (Remeron) 7.5 mg PO BEDTIME [facility] Last Admin: 02/28/18 20:20 Dose: 7.5 mg Miscellaneous Information (Remove Patch) 1 ea TRDERM BEDTIME PRN PRN Reason: remove patch Oxycodone HCl (Oxycodone) 15 mg PO BEDTIME [facility] Last Admin: 03/01/18 20:37 Dose: 15 mg Oxycodone HCl (Oxycodone) 10 mg PO DAILY [facility] Last Admin: 03/01/18 09:27 Dose: 10 mg Polyethylene Glycol (Miralax) 17 gm PO DAILY PRN PRN Reason: Constipation Prednisone (Prednisone) 20 mg PO WITHBREAKFAST [facility] Stop: 03/05/18 09:46 Last Admin: 03/01/18 09:48 Dose: 20 mg Sertraline HCl (Zoloft) 100 mg PO DAILY [facility] Last Admin: 03/01/18 09:30 Dose: 100 mg Simvastatin (Zocor) 20 mg PO BEDTIME [facility] Last Admin: 03/01/18 20:38 Dose: 20 mg Warfarin Sodium (Coumadin) 5 mg PO SuTuWeThSa@0900 [facility] Warfarin Sodium (Coumadin) 2.5 mg PO MoFr@0900 [facility] Last Admin: 03/01/18 09:27 Dose: 2.5 mg Discontinued Medications Ceftriaxone Sodium (Rocephin) 1 gm IVPUSH ONETIME ONE Stop: 02/28/18 04:15 Last Admin: 02/28/18 04:40 Dose: 1 gm Famotidine (Pepcid) 20 mg PO DAILY [facility] Last Admin: 02/28/18 08:46 Dose: 20 mg Fluticasone Propionate (Flonase) 0 gm NASBOTH DAILY [facility] Last Admin: 02/28/18 08:48 Dose: 2 spray Glyburide (Micronase) 1.25 mg PO DAILY [facility] Insulin Detemir (Levemir) 15 unit SUBCUT DAILY@1800 [facility] Last Admin: 02/28/18 18:39 Dose: 15 units Methylprednisolone Sodium Succinate (Solu-Medrol) 125 mg IVPUSH ONETIME ONE Stop: 02/28/18 04:15 Last Admin: 02/28/18 04:40 Dose: 125 mg Non-Formulary Medication (Glyburide [Micronase]) 1.25 mg PO DAILY [facility] Last Admin: 02/28/18 12:03 Dose: Not Given Non-Formulary Medication (Polyvinyl Alcohol [Tears Again]) 1 drop OP ASDIRECTED [facility] Warfarin Sodium (Coumadin) 2.5 mg PO MOFR [facility] Warfarin Sodium (Coumadin) 5 mg PO SUTUWETHSA [facility] Last Admin: 02/28/18 06:55 Dose: Not Given Warfarin Sodium (Coumadin) 5 mg PO SUTUWETHSA [facility] Last Admin: 02/28/18 12:13 Dose: Not Given Warfarin Sodium (Coumadin) 2.5 mg PO MoFr@0900 [facility] Warfarin Sodium (Coumadin) 5 mg PO SuTuWeThSa@0900 [facility] Last Admin: 02/28/18 12:13 Dose: 5 mg Warfarin Sodium (Coumadin) 5 mg PO DAILY [facility] - Exam Physical Findings Comments:: GENERAL: Well-appearing elderly male sitting in bedside chair in no acute distress. HEENT: Normocephalic, atraumatic. Conjunctiva clear. Nares patent without discharge. Mucous membranes moist, posterior pharynx unremarkable. NECK: Supple, no masses. CV: Irregularly irregular. 2+ radial pulses. PULMONARY: Normal effort, clear to auscultation bilaterally, no wheezes, rales, or rhonchi. ABDOMEN: Positive bowel sounds, soft, nontender, nondistended. EXTREMITIES: No significant pedal edema. MUSCULOSKELETAL: R knee with minimal effusion and warmth, but ongoing tenderness to palpation of patella and medial and lateral joint lines. NEUROLOGICAL: No obvious deficits. DERMATOLOGIC: No rashes or suspicious lesions in exposed areas. PSYCHIATRIC: Alert, oriented to person and place, confused. - Problem List Review Problem List Initiated/Reviewed/Updated: Yes - My Orders Last 24 Hours: My Active Orders 03/01/18 09:45 predniSONE 20 mg PO WITHBREAKFAST 03/02/18 05:11 BASIC METABOLIC PANEL,BMP [CHEM] AM C-REACTIVE PROTEIN [CHEM] AM CBC WITH AUTO DIFF [HEME] AM - Plan Plan:: 82yoM with longstanding RA, dementia, and other well managed chronic medical conditions as well as right knee effusions/draining in past who presented to the [facility] ED with right knee pain that was acutely exacerbated after he was assisting lifting his own from her falling the day prior. He c/o slight fever, weakness when patient could not get up from floor at home for which ambulance was called to home to assist and brought him in for evaluation. ED workup was notable for fever with T 100.7, elevated WBC and inflammatory markers , and R knee XR without abnormality. He received SoluMedrol in the ED for likely inflammatory effusion. He was admitted for possible septic arthritis. Joint aspiration performed on 02/28/18. # R knee effusion # Leukocytosis with neutrophilia # Elevated CRP # Fever # Rheumatoid arthritis # Debility Blood cultures and urine culture with no growth and CXR obtained yesterday without pneumonia, which continues to favor R knee as source of fever, possibly septic arthritis though inflammatory effusion certainly also possible given history of RA and multiple effusions in the past. - Continue ceftriaxone awaiting knee aspirate gram stain and 48hrs on blood culture - Initiate prednisone 20mg daily - CBC and CRP tomorrow - Ongoing knee effusion and blood culture surveillance - Continue physical therapy recommendations for physical debility Chronic conditions: # Atrial fibrillation: Stable. Rate controlled. Continue metoprolol, warfarin. # HTN: Stable. Continue lisinopril, HCTZ, metoprolol. # GERD: Stable. Continue famotidine. # Chronic rhinitis: Stable. Continue Flonase. # DMT2: Continue outpatient Levemir, glyburide, and metformin. Continue BG checks in setting of glucocorticoid use. # HLD: Continue simvastatin. # Normocytic anemia: Stable. # Depression: Stable. Continue sertraline, mirtazepine. # Chronic back pain: Stable. Continue oxycodone, lidocaine patch. Hospitalization details: # FEN: No IVF. Electrolytes normal; recheck tomorrow. Diabetic diet. # PPX: Warfarin with therapeutic INR for DVT ppx. # Code status: DNR/DNI. # Emergency contact: , who was updated at bedside on rounds. # Disposition: Continue on inpatient unit for ongoing IV antibiotics and monitoring of clinical status, in addition to physical rehabilitation.
[2018-03-01] MEDS: Mirtazapine 15 MG Tab PO SCH (22:34)
[2018-03-02 08:22] LABS: CHLORIDE,CL 106 mmol/L (98-115); SODIUM,NA 144 mmol/L (136-145)
[2018-03-02] MEDS: Lisinopril 20 MG Tab PO SCH (08:43)
[2018-03-02] MEDS: Famotidine 20 MG Tab PO SCH (08:43)
[2018-03-02] MEDS: predniSONE 20 MG Tab PO SCH (08:43)
[2018-03-02] MEDS: Sertraline 50 MG Tab PO SCH (08:46)
[2018-03-02] MEDS: Hydrochlorothiazide 25 MG Tab PO SCH (08:47)
[2018-03-02] MEDS: Metoprolol Succinate 25 MG Tab.ER PO SCH (08:48)
[2018-03-02] MEDS: Folic Acid 1 MG Tab PO SCH (08:48)
[2018-03-02] MEDS: Insulin Detemir 100 Units/ML 3 ML Pen SUBCUT SCH ×2 (08:49→21:15)
[2018-03-02] MEDS: oxyCODONE 5 MG Tab PO SCH ×2 (08:52→21:17)
[2018-03-02] MEDS: Warfarin 5 MG Tab PO SCH (11:14)
[2018-03-02] MEDS: metFORMIN 500 MG Tab PO SCH (17:42)
[2018-03-02] MEDS: Mirtazapine 15 MG Tab PO SCH (21:16)
[2018-03-02] MEDS: Simvastatin 20 MG Tab PO SCH (21:17)
[2018-03-03 06:12] VITALS: BP 126/75
[2018-03-03 07:37] LABS: CHLORIDE,CL 106 mmol/L (98-115); SODIUM,NA 143 mmol/L (136-145)
[2018-03-03] MEDS: Famotidine 20 MG Tab PO SCH (07:54)
[2018-03-03] MEDS: predniSONE 20 MG Tab PO SCH (08:27)
[2018-03-03] MEDS: metFORMIN 500 MG Tab PO SCH (08:27)
[2018-03-03] MEDS: Warfarin 5 MG Tab PO SCH (08:27)
[2018-03-03] MEDS: Insulin Detemir 100 Units/ML 3 ML Pen SUBCUT SCH (08:28)
[2018-03-03] MEDS: Folic Acid 1 MG Tab PO SCH (08:28)
[2018-03-03] MEDS: oxyCODONE 5 MG Tab PO SCH (08:28)
[2018-03-03] MEDS: Hydrochlorothiazide 25 MG Tab PO SCH (08:28)
[2018-03-03] MEDS: Metoprolol Succinate 25 MG Tab.ER PO SCH (08:29)
[2018-03-03] MEDS: Lisinopril 20 MG Tab PO SCH (08:29)
[2018-03-03] MEDS: Sertraline 50 MG Tab PO SCH (08:30)
[2018-03-03] MEDS ORDERED: predniSONE 20 MG Tab PO ONE (11:22)
--- NOTE | 2018-03-04 08:26 | PN ---
03/02/2018PATIENT NAME: TUCKER ORNELAS SUBJECTIVE: This is an 82-year-old male patient with history of RA and dementia. He currently is recovering from a right knee effusion. He presented to the ED due to right knee pain which was exacerbated when assisting his in the home setting. He was having difficulty getting up from the floor, therefore an ambulance was summoned and he was evaluated in the ED and admitted to the [facility]. He initially experienced a fever. He was quite weak. His lab work was abnormal noting an elevated white count and inflammatory markers. X-ray was without abnormalities. He did receive Solumedrol in the ED and currently is receiving a prednisone burst. Today, he offers that he notes improvement. His knee does continue to be tender. He notes that if he attempt to flex and extend the knee, discomfort does worsen. It also becomes more uncomfortable if he touches or presses on his knee. He states that the redness is resolving some. He feels that it does remain somewhat warm. A right knee aspiration was completed by Dr. Anne Sawant, and report is pending. REVIEW OF SYSTEMS: HEENT: Negative. RESPIRATORY: The patient has no complaints of cough, congestion, cardiovascular. He has no chest pain or palpitations. GASTROINTESTINAL: His appetite has been good. He has had no nausea or vomiting. MUSCULOSKELETAL: Right knee discomfort which is showing some improvement since the hospital admission. PHYSICAL EXAMINATION: HEENT: Head is normocephalic. Conjunctiva clear. No nasal drainage. RESPIRATORY: Lungs sounds are clear to auscultation. CARDIOVASCULAR: Heart rate and rhythm is irregularly irregular. ABDOMEN: Soft, nontender. Bowel sounds are present. EXTREMITIES: Right knee is slightly swollen. It is tender at the patella, medial, and lateral aspects. Increased pain was attempting to flex, extend, or weight bear. ASSESSMENT AND PLAN: 1. Right knee effusion. 2. Leukocytosis with neutrophilia. 3. Elevated CRP which is improving. 4. Fever which is improving. 5. Rheumatoid arthritis with debilitation. 6. Blood cultures and urine cultures have been obtained with no growth present. He did have a chest x-ray which indicated no pneumonia. 7. Right knee aspiration has been completed. Consideration for septic arthritis with inflammatory effusion. The patient has received ceftriaxone in the event of waiting for the aspiration results. He is currently receiving prednisone 20 mg. He will continue the remainder of his medications as ordered. His INR today was 2.9, Telepharmacy will be managing his Coumadin. /[id number]/MODL MTDD
--- NOTE | 2018-03-13 08:16 | DISCH ---
DISCHARGE DIAGNOSIS: 1. Rheumatoid arthritis with right knee effusion. 2. Leukocytosis with neutrophilia. 3. Elevated CRP with improvement. BRIEF HISTORY AND HOSPITAL COURSE: This is an 82-year-old male patient who has a history of RA and dementia. He was admitted due to knee pain which was exacerbated when assisting his in the home setting. He developed a right knee effusion, which was aspirated. He experienced difficulty with mobility and initially was seen in the ED prior to his admission. Lab work throughout his course noted an elevated white count with elevated inflammatory markers. This did show improvement. His x-ray was negative. He did have an aspiration completed per Dr. Anne Sawant. He received Solu-Medrol in the ED and is completing a prednisone burst. Throughout the course, he did note improvement. His knee swelling improved. He was able to flex and extend with less discomfort. He had no complications through the course of his hospitalization. DISCHARGE MEDICATIONS: His medications on discharge were: 1. Tylenol 650 q.4 h. p.r.n. 2. Artificial Tears. 3. He did receive 1 g of Rocephin IM. 4. He is on famotidine 20 mg,. 5. Flonase nasal spray. 6. Folic acid 1 mg daily. 7. Micronase 1.25 with breakfast. 8. Hydrochlorothiazide 25 mg daily. 9. He received Levemir insulin while hospitalized. This was discontinued on discharge. 10.Lidoderm patch. 11.Lisinopril 20 mg daily. 12.Glucophage 1000 mg daily. 13.Toprol-XL 25 mg daily. 14.Remeron 7.5 mg at bedtime. 15.Oxycodone. His dosing is 10 mg in the a.m. and 15 mg in the p.m. 16.He also receives MiraLAX and will complete his prednisone burst. 17.Zoloft 100 mg daily. 18.Zocor 20 mg daily. LABS AND DIAGNOSTICS: Included the CBC, initially noting an elevated white count, which did improve. His CRP also trended to improvement. His INR was 2.6 at the time of his discharge with a blood sugar at 84. PHYSICAL EXAMINATION: HEENT: Head is normocephalic. Conjunctivae clear. No nasal drainage. RESPIRATORY: Lungs are clear to auscultation. CARDIOVASCULAR: Heart rate and rhythm is irregularly irregular. ABDOMEN: Soft and nontender. Bowel sounds are present. EXTREMITIES: Right knee reveals minimal swelling. He does have mild tenderness at the patella, medial and lateral aspects, the most prominent at the aspiration site. He is able to flex and extend along with weightbearing. DISCHARGE INSTRUCTIONS: The patient was given discharge instructions/discharge packet prior to his departure from hospitalization, and he was advised to follow up with his primary care provider next week for re-evaluation and will notify his healthcare provider with any questions or concerns. discharge date 03-02-18. /[id number]/MODL MTDD
== END 2018-03-03 11:45 | disposition home or self-care (01) | DRG 566 ==
LOC: KA.ED 01:00 → KA.MS 03:16
PROVIDERS: ADMIT Physician Assistant Surgical; ATTEND Family Medicine
PROC: 0S9C3ZX Drainage of Right Knee Joint, Percutaneous Approach, Diagnostic (ICD-10-PCS; principal; 2018-02-28)
DX: M25.461 Effusion, right knee (principal); I48.92 Unspecified atrial flutter; M06.9 Rheumatoid arthritis, unspecified; D72.829 Elevated white blood cell count, unspecified; D72.0 Genetic anomalies of leukocytes; R79.82 Elevated C-reactive protein (CRP); I48.91 Unspecified atrial fibrillation; R50.9 Fever, unspecified; F03.90 Unspecified dementia, unspecified severity, without behavioral disturbance, psychotic disturbance, mood disturbance, and anxiety; R53.81 Other malaise; Z79.899 Other long term (current) drug therapy; I25.10 Atherosclerotic heart disease of native coronary artery without angina pectoris; D64.9 Anemia, unspecified; K21.9 Gastro-esophageal reflux disease without esophagitis; E78.00 Pure hypercholesterolemia, unspecified; I10 Essential (primary) hypertension; R01.1 Cardiac murmur, unspecified; E11.9 Type 2 diabetes mellitus without complications; M54.9 Dorsalgia, unspecified; I25.2 Old myocardial infarction; F32.9 Major depressive disorder, single episode, unspecified; Z95.1 Presence of aortocoronary bypass graft; Z79.01 Long term (current) use of anticoagulants; Z87.891 Personal history of nicotine dependence; Z86.718 Personal history of other venous thrombosis and embolism
CPT/HCPCS: 36415; 71046; 73562-RT; 80048; 81001; 82962; 83605; 85025; 85610; 86140; 87040; 87086; 89051; 89060; 97162-GP; 99284; 99285; A9270-GY; J0696; J1815-GY; J2930

== ENCOUNTER 2020-01-28 08:23 | Day surgery (SDC) | payer MEDICARE, BC ==
[~2020-01-28 08:23] MED LIST: Sodium Chloride 0.9% 1,000 ML IV SCH
[2020-01-28] MEDS ORDERED: Metoprolol Tartrate 5 MG/5 ML SDV IV ONE (08:24)
[2020-01-28] MEDS ORDERED: ceFAZolin 1 GM Vial ONE ×3 (09:02→10:11)
[2020-01-28] MEDS ORDERED: Bupivacaine 0.5%/EPINEPHrine 1:200,000 30 ML SDV ONE (09:02)
[2020-01-28] MEDS ORDERED: Propofol 200 MG/20 ML SDV ONE ×2 (09:43→09:45)
[2020-01-28] MEDS ORDERED: Ketamine 200 MG/20 ML MDV ONE (09:43)
[2020-01-28] MEDS ORDERED: fentaNYL 100 MCG/2 ML SDV ONE (09:43)
[2020-01-28] MEDS ORDERED: Bupivacaine 0.5%/EPINEPHrine 1:200,000 30 ML SDV INFILT ONE ×2 (10:11)
[2020-01-28] MEDS ORDERED: Sodium Chloride 0.9% 20 ML SDV ONE (10:11)
--- NOTE | 2020-01-28 11:29 | PCM.OPNOTE ---
- General Post-Op/Procedure Note Date of Surgery/Procedure: 01/28/20 Operative Procedure(s): Right recurrent inguinal herniorrhaphy with mesh. Anesthesia Technique: Local, MAC, Moderate Sedation Primary Surgeon: Anne Sawant Anesthesia Provider: Tressa Lopez Surgical Drain/Tube Type: Hemovac, Martín Jacobs Flat Drain, Martín Jacobs Round Drain, Char Drain/Tube Comments:: Drain is 4 inches long. Condition: Good Free Text/Narrative:: INFORMED CONSENT: The patient is here today for elective right recurrent inguinal herniorrhaphy. The operative procedure, anesthesia and risks of both are completely explained to the patient. These include infection, pain, bleeding , recurrence, numbness and other unknown complications. The patient wished to proceed. The patient was kept in the supine position and the inguinal area was thoroughly prepped and draped in the usual fashion. An incision was made over the inguinal area, parallel to the inguinal ligament. The skin incision was deepened through the subcutaneous tissue, deep fascia and the external oblique was opened along the line of the skin incision. The cord structures were identified and kept out of harms way. We also identified the ilioinguinal nerve and the inguinal branch of the genitofemoral nerve. These two structures were kept out of harms way as well. We then dissected the medial portion of the cord and there was a fairly significant hernial sac which was opened. The contents were mostly omental tissue that was pushed back into the abdominal cavity. A high ligation of the sac was performed with 0 silk sutures. The excess sac was excised and sent away for histology. Palpation of the medial portion of the floor indicated a defect. A Marlex mesh was then cut down to size and placed to fortify the defect of the floor and the direct portion of the hernia. The mesh was attached to the conjoined tendon superiorly, Myke's ligament medially and the reflected portion of the inguinal ligament inferiorly. The wound was irrigated, small bleeders were cauterized and the external oblique was closed over the cord structures using running 0 silk sutures. The subcutaneous tissue was closed with 0 Polysorb suture and the skin was closed using 4.0 Polysorb suture. After closing the fascia a 1/4 inch Char drain was placed and brought out through the middle of the incision and anchored using 3-0 Polysorb suture. A Sterile pressure dressing was applied, the patient tolerated the procedure well and there were no operative complications. Blood loss was negligible. Sponge, needle and instrument count was correct. The patient was transferred to the recovery room in excellent condition.
--- NOTE | 2020-01-28 16:09 | PCM.PN ---
- General Info Date of Service: 01/28/20 Admission Dx/Problem (Free Text): Patient had a right inguinal herniorrhaphy. This morning. Continues to have significant pain 6 out of 10. Pain Score: 8 - Review of Systems General: Reports: Other (Complains of pain in the right inguinal area where he had herniorrhaphy. This morning.) HEENT: Reports: No Symptoms Pulmonary: Reports: No Symptoms Cardiovascular: Reports: No Symptoms Gastrointestinal: Reports: No Symptoms Genitourinary: Reports: No Symptoms Musculoskeletal: Reports: Other (Has right inguinal pain.) Skin: Reports: No Symptoms Neurological: Reports: No Symptoms Psychiatric: Reports: No Symptoms - Patient Data Vitals - Most Recent: Last Vital Signs Temp 98.0 F 01/28/20 12:58 Pulse 66 01/28/20 12:58 Resp 18 01/28/20 12:58 BP 141/70 H 01/28/20 12:58 Pulse Ox 97 01/28/20 12:58 Weight - Most Recent: 193 lb Lab Results Last 24 Hours: Laboratory Results - last 24 hr 01/28/20 01/28/20 Range/Units 08:39 08:40 PT TNP INR 1.3 H (0.9-1.1) POC Glucose 109 H (74-106) mg/dl Med Orders - Current: Current Medications Sodium Chloride (Normal Saline) 1,000 mls @ 50 mls/hr IV ASDIRECTED [facility] Last Admin: 01/28/20 09:54 Dose: 50 mls/hr Morphine Sulfate (Morphine) 2 mg IVPUSH Q3H PRN PRN Reason: Pain Sodium Chloride (Saline Flush) 10 ml FLUSH Q8HR PRN PRN Reason: keep vein open Discontinued Medications Bupivacaine HCl/Epinephrine Bitart (Marcaine 0.5%/Epinephrine 1:200,000) Confirm Administered Dose 30 ml .ROUTE .STK-MED ONE Stop: 01/28/20 09:03 Bupivacaine HCl/Epinephrine Bitart (Marcaine 0.5%/Epinephrine 1:200,000) 20 ml INFILT .STK-MED ONE Stop: 01/28/20 10:12 Last Admin: 01/28/20 10:11 Dose: 20 ml Cefazolin Sodium (Ancef) Confirm Administered Dose 1 gm .ROUTE .STK-MED ONE Stop: 01/28/20 09:03 Cefazolin Sodium (Ancef) Confirm Administered Dose 1 gm .ROUTE .STK-MED ONE Stop: 01/28/20 09:44 Cefazolin Sodium (Ancef) 1 gm .XX .STK-MED ONE Stop: 01/28/20 10:12 Last Admin: 01/28/20 10:11 Dose: 1 gm Fentanyl (Sublimaze) Confirm Administered Dose 100 mcg .ROUTE .STK-MED ONE Stop: 01/28/20 09:44 Ketamine HCl (Ketalar) Confirm Administered Dose 200 mg .ROUTE .STK-MED ONE Stop: 01/28/20 09:44 Propofol (Diprivan 20 Ml) Confirm Administered Dose 600 mg .ROUTE .STK-MED ONE Stop: 01/28/20 09:44 Propofol (Diprivan 20 Ml) Confirm Administered Dose 200 mg .ROUTE .STK-MED ONE Stop: 01/28/20 09:46 Sodium Chloride (Normal Saline) 10 ml .XX .STK-MED ONE Stop: 01/28/20 10:12 Last Admin: 01/28/20 10:11 Dose: 10 ml - Exam Quality Assessment: Supplemental Oxygen General: Alert HEENT: Pupils Equal Neck: Supple Lungs: Clear to Auscultation Cardiovascular: Regular Rate GI/Abdominal Exam: Normal Bowel Sounds (Male) Exam: No Hernia, Normal Inspection, Other (Patient had right inguinal herniorrhaphy this morning with placement of Marlex mesh and [place] drain.) Back Exam: Normal Inspection Extremities: Normal Inspection Skin: Warm Wound/Incisions: No Drainage Neurological: Normal Speech Psy/Mental Status: Normal Affect Sepsis Event Note - Focused Exam Vital Signs: Vital Signs Temp Pulse Resp BP Pulse Ox Pulse Ox 01/28/20 12:58 98.0 F 66 18 141/70 H 97 01/28/20 12:30 67 20 142/67 H 96 01/28/20 12:15 65 18 140/70 95 01/28/20 11:51 97.2 F 81 20 137/71 95 01/28/20 11:37 95 01/28/20 11:29 97.4 F 100 20 154/70 H 90 L 01/28/20 08:00 97.2 F 75 18 159/74 H 99 Date Exam was Performed: 01/28/20 Time Exam was Performed: 16:07 - Problem List Review Problem List Initiated/Reviewed/Updated: Yes - My Orders Last 24 Hours: My Active Orders 01/27/20 15:39 Resuscitation Status Routine 01/28/20 08:00 Blood Glucose Check, Bedside [RC] BIDMEALS Peripheral IV Care [RC] . DIRECTED Vital Signs [RC] PER UNIT ROUTINE Sodium Chloride 0.9% [Normal Saline] 1,000 ml IV ASDIRECTED Sodium Chloride 0.9% [Saline Flush] 10 ml FLUSH Q8HR PRN Peripheral IV Insertion Adult [OM.PC] Routine 01/28/20 11:29 Oxygen Therapy [RC] PRN Ready for Discharge [RC] PER UNIT ROUTINE Vital Signs [RC] PER UNIT ROUTINE 01/28/20 15:36 Morphine 2 mg IVPUSH Q3H PRN 01/28/20 Breakfast Nothing Per Oral Diet [DIET]
[2020-01-28] MEDS: Morphine 2 MG/ML Syringe IVPUSH PRN ×2 (16:12→20:42)
[2020-01-28] MEDS: Sodium Chloride 0.9% 10 ML Syringe FLUSH PRN ×2 (16:13→20:47)
[2020-01-28] MEDS ORDERED: tiZANidine 2 MG Tab PO PRN (16:31)
[2020-01-28] MEDS ORDERED: traZODone 50 MG Tab PO PRN (16:31)
[2020-01-28] MEDS ORDERED: Furosemide 20 MG Tab PO SCH (16:45)
[2020-01-28] MEDS ORDERED: Warfarin 2.5 MG Tab PO ONE (18:00)
[2020-01-28] MEDS: metFORMIN 500 MG Tab PO SCH (18:10)
[2020-01-28] MEDS: Acetaminophen 325 MG Tab PO PRN (20:51)
[2020-01-28] MEDS ORDERED: oxyCODONE 5 MG Tab PO SCH (21:00)
[2020-01-28] MEDS ORDERED: Mirtazapine 15 MG Tab PO SCH (21:00)
[2020-01-28] MEDS ORDERED: Simvastatin 20 MG Tab PO SCH (21:00)
--- NOTE | 2020-01-28 22:47 | PN ---
01/28/2020 PATIENT NAME: TUCKER ORNELAS The patient is an 84-year-old gentleman who underwent a right inguinal herniorrhaphy this morning under general anesthesia. The patient has significant pain in the area, 6 to up to 8. . He is on long-term narcotic medication for chronic pain already. He has difficulty ambulating. He does have a Char drain in place. He is very elderly. He has a significant past history of chronic pain of the back due to arthritis, he is on anticoagulation for atrial fibrillation. He has history of hypertension and type 2 diabetes mellitus. He has history of depression. His medications have been reviewed. I suggest that he stay back tonight for further observation status. We will re-examine him tomorrow to remove the drain if everything is okay and then send him home. We will continue pain medication including IV morphine as necessary. We will start back his old medications. /[id number]/MODL MTDDee
[2020-01-29] MEDS: Morphine 2 MG/ML Syringe IVPUSH PRN ×2 (01:26→06:40)
[2020-01-29] MEDS: Sodium Chloride 0.9% 10 ML Syringe FLUSH PRN (01:31)
[2020-01-29] MEDS: Acetaminophen 325 MG Tab PO PRN ×2 (03:31→11:27)
[2020-01-29] MEDS: metFORMIN 500 MG Tab PO SCH (08:35)
[2020-01-29] MEDS ORDERED: Lisinopril 20 MG Tab PO SCH (09:00)
[2020-01-29] MEDS ORDERED: Folic Acid 1 MG Tab PO SCH (09:00)
[2020-01-29] MEDS ORDERED: Warfarin 5 MG Tab PO SCH ×3 (09:00→18:00)
[2020-01-29] MEDS ORDERED: Sertraline 50 MG Tab PO SCH (09:00)
[2020-01-29] MEDS ORDERED: Famotidine 20 MG Tab PO SCH (09:00)
[2020-01-29] MEDS ORDERED: Hydrochlorothiazide 25 MG Tab PO SCH (09:00)
[2020-01-29] MEDS ORDERED: Fluticasone Propionate Nasal Spray 16 GM Bottle NASBOTH SCH (09:00)
[2020-01-29] MEDS ORDERED: Metoprolol Succinate 25 MG Tab.ER PO SCH (09:00)
--- NOTE | 2020-01-29 11:07 | PCM.DCSUM1 ---
Discharge Summary - Hospital Course Diagnosis: Stroke: No Modified Sully Scale: No Symptoms at All Modified Sully Scale Score: 0 - Discharge Data Discharge Date: 01/29/20 Discharge Disposition: DC/Tfer to SNF 03 Condition: Fair - Referral to Home Health Primary Care Physician: Anne Sawant MD - Patient Summary/Data Operative Procedure(s) Performed: Right recurrent inguinal herniorrhaphy with mesh. - Patient Instructions Diet: Regular Diet as Tolerated Activity: As Tolerated, Cough & Deep Breathe Driving: Do Not Drive Showering/Bathing: May Shower Notify Provider of: Fever, Increased Pain, Nausea and/or Vomiting - Discharge Plan *PRESCRIPTION DRUG MONITORING PROGRAM REVIEWED*: Not Applicable (Not applicable since discharge to [facility]) *COPY OF PRESCRIPTION DRUG MONITORING REPORT IN PATIENT SANCHEZ: Not Applicable ( Not applicable since discharge to [facility]) Prescriptions/Med Rec: Sennosides/Docusate Sodium [Senna-S Laxative Tablet] 1 each PO BEDTIME #30 tablet Home Medications: Home Meds Hydrochlorothiazide 25 mg PO DAILY 06/22/14 [History] Sertraline HCl 100 mg PO DAILY 06/22/14 [History] Simvastatin 20 mg PO BEDTIME 06/22/14 [History] lisinopriL [Prinivil] 20 mg PO DAILY 06/22/14 [History] oxyCODONE HCl [Oxycodone HCl] 10 mg PO BID 06/22/14 [History] Fluticasone Propionate [Flonase] 2 spray NASBOTH DAILY 12/24/14 [History] Metoprolol Succinate [Toprol XL] 25 mg PO DAILY 02/17/16 [History] Famotidine [Pepcid AC] 20 mg PO DAILY #30 tablet 03/29/16 [Rx] metFORMIN [Glucophage] 1,000 mg PO BIDMEALS 05/22/16 [History] Folic Acid 1 mg PO DAILY 02/28/18 [History] Mirtazapine 7.5 mg PO BEDTIME 02/28/18 [History] Warfarin Sodium 5 mg PO DAILY 02/28/18 [History] Acetaminophen [Tylenol] 650 mg PO Q4H PRN 01/27/20 [History] Furosemide 20 mg PO ASDIRECTED 01/27/20 [History] tiZANidine [Zanaflex] 2 mg PO DAILY PRN 01/27/20 [History] traZODone HCl [Trazodone HCl] 50 mg PO BEDTIME PRN 01/27/20 [History] Rup Rub 1 applic TOP TID 01/28/20 [History] Sennosides/Docusate Sodium [Senna-S Laxative Tablet] 1 each PO BEDTIME #30 tablet 01/29/20 [Rx] - Discharge Summary/Plan Comment DC Time >30 min.: Yes Discharge Summary/Plan Comment: Final diagnosis Status post right inguinal herniorrhaphy, POD #1 history summary, Hospital course 84-year-old gentleman status post right inguinal surgical repair under general anesthesia. Patient is doing well however does have more acute pain than her normal baseline however quite functional. [place] inplace draining serosanguineous fluid however no wound dehiscence. No bowel movement however passing gas, no postop or surgical complications however due to increase in pain the patient did stay overnight at her pain management. No fever, tolerated breakfast without any nausea or vomiting. INR 1.3, blood glucose 114 , blood pressure slightly elevated, likely however this trended to normalization upon discharge. Medication changes/adjustments upon discharge Senna S1 tab p.o. nightly for opioid-induced constipation Disposition Although the patient is near his functional status there was some concern regarding spouse's ability to care for patient postoperatively. Social service consult placed and recommended long-term care. Patient agreed. He will be from [facility], immediate follow-up outpatient [place] [facility] with the surgery Dr. JENKINS for possible drain removal and then transferred by his spouse to [facility] long-term care detention facility [facility] - General Info Functional Status: Reports: Pain Controlled, Tolerating Diet, Ambulating, Urinating. Denies: New Symptoms - Review of Systems General: Denies: Fever, Weakness, Fatigue Pulmonary: Reports: No Symptoms Cardiovascular: Reports: No Symptoms Gastrointestinal: Reports: Other (Surgical site pain however low-grade) Skin: Reports: Bruising, Other (Drainage from right inguinal surgical site) Neurological: Reports: Difficulty Walking, Gait Disturbance. Denies: Dizziness Psychiatric: Denies: Confusion - Patient Data Vitals - Most Recent: Last Vital Signs Temp 97.8 F 01/29/20 07:00 Pulse 76 01/29/20 08:39 Resp 20 01/29/20 07:00 BP 140/60 01/29/20 08:39 Pulse Ox 94 L 01/29/20 07:00 Weight - Most Recent: 193 lb I&O - Last 24 hours: Intake & Output 01/28/20 01/29/20 01/29/20 22:59 06:59 14:59 Intake Total 980 200 Balance 980 200 Lab Results - Last 24 hrs: Laboratory Results - last 24 hr 01/28/20 01/29/20 Range/Units 17:52 06:38 POC Glucose 174 H 114 H (74-106) mg/dl Med Orders - Current: Current Medications Acetaminophen (Tylenol) 650 mg PO Q4H PRN PRN Reason: MILD PAIN Last Admin: 01/29/20 03:31 Dose: 650 mg Famotidine (Pepcid) 20 mg PO DAILY [facility] Last Admin: 01/29/20 08:35 Dose: 20 mg Fluticasone Propionate (Flonase) 0 gm NASBOTH DAILY [facility] Last Admin: 01/29/20 08:48 Dose: 2 spray Folic Acid (Folic Acid) 1 mg PO DAILY [facility] Last Admin: 01/29/20 08:35 Dose: 1 mg Hydrochlorothiazide (Hydrochlorothiazide) 25 mg PO DAILY [facility] Last Admin: 01/29/20 08:35 Dose: 25 mg Lisinopril (Prinivil) 20 mg PO DAILY [facility] Last Admin: 01/29/20 08:39 Dose: 20 mg Metformin HCl (Glucophage) 1,000 mg PO BIDMEALS [facility] Last Admin: 01/29/20 08:35 Dose: 1,000 mg Metoprolol Succinate (Toprol Xl) 25 mg PO DAILY [facility] Last Admin: 01/29/20 08:39 Dose: 25 mg Mirtazapine (Remeron) 7.5 mg PO BEDTIME [facility] Last Admin: 01/28/20 20:39 Dose: 7.5 mg Morphine Sulfate (Morphine) 2 mg IVPUSH Q3H PRN PRN Reason: Pain Last Admin: 01/29/20 06:40 Dose: 2 mg Sertraline HCl (Zoloft) 100 mg PO DAILY [facility] Last Admin: 01/29/20 08:36 Dose: 100 mg Simvastatin (Zocor) 20 mg PO BEDTIME [facility] Last Admin: 01/28/20 20:39 Dose: 20 mg Sodium Chloride (Saline Flush) 10 ml FLUSH Q8HR PRN PRN Reason: keep vein open Last Admin: 01/29/20 01:31 Dose: 10 ml Tizanidine HCl (Zanaflex) 2 mg PO DAILY PRN PRN Reason: Other Trazodone HCl (Trazodone) 50 mg PO BEDTIME PRN PRN Reason: Sleep Last Admin: 01/28/20 20:39 Dose: 50 mg Warfarin Sodium (Coumadin) 5 mg PO DAILY@1800 TAMIR Discontinued Medications Bupivacaine HCl/Epinephrine Bitart (Marcaine 0.5%/Epinephrine 1:200,000) Confirm Administered Dose 30 ml .ROUTE .STK-MED ONE Stop: 01/28/20 09:03 Last Admin: 01/28/20 17:19 Dose: Not Given Bupivacaine HCl/Epinephrine Bitart (Marcaine 0.5%/Epinephrine 1:200,000) 20 ml INFILT .STK-MED ONE Stop: 01/28/20 10:12 Last Admin: 01/28/20 10:11 Dose: 20 ml Cefazolin Sodium (Ancef) Confirm Administered Dose 1 gm .ROUTE .STK-MED ONE Stop: 01/28/20 09:03 Last Admin: 01/28/20 17:19 Dose: Not Given Cefazolin Sodium (Ancef) Confirm Administered Dose 1 gm .ROUTE .STK-MED ONE Stop: 01/28/20 09:44 Last Admin: 01/28/20 17:20 Dose: Not Given Cefazolin Sodium (Ancef) 1 gm .XX .STK-MED ONE Stop: 01/28/20 10:12 Last Admin: 01/28/20 10:11 Dose: 1 gm Fentanyl (Sublimaze) Confirm Administered Dose 100 mcg .ROUTE .STK-MED ONE Stop: 01/28/20 09:44 Last Admin: 01/28/20 17:21 Dose: Not Given Furosemide (Lasix) 20 mg PO ASDIRECTED [facility] Sodium Chloride (Normal Saline) 1,000 mls @ 50 mls/hr IV ASDIRECTED TAM[facility] Last Admin: 01/28/20 09:54 Dose: 50 mls/hr Ketamine HCl (Ketalar) Confirm Administered Dose 200 mg .ROUTE .STK-MED ONE Stop: 01/28/20 09:44 Last Admin: 01/28/20 17:21 Dose: Not Given Metoprolol Tartrate (Lopressor) 5 mg IV .STK-MED ONE Stop: 01/28/20 08:25 Oxycodone HCl (Oxycodone) 10 mg PO BID [facility] Propofol (Diprivan 20 Ml) Confirm Administered Dose 600 mg .ROUTE .STK-MED ONE Stop: 01/28/20 09:44 Last Admin: 01/28/20 17:20 Dose: Not Given Propofol (Diprivan 20 Ml) Confirm Administered Dose 200 mg .ROUTE .STK-MED ONE Stop: 01/28/20 09:46 Last Admin: 01/28/20 17:21 Dose: Not Given Sodium Chloride (Normal Saline) 10 ml .XX .STK-MED ONE Stop: 01/28/20 10:12 Last Admin: 01/28/20 10:11 Dose: 10 ml Warfarin Sodium (Coumadin) 5 mg PO DAILY [facility] Warfarin Sodium (Coumadin) 2.5 mg PO ONETIME ONE Stop: 01/28/20 18:01 Last Admin: 01/28/20 18:09 Dose: 2.5 mg Warfarin Sodium (Coumadin) 5 mg PO DAILY TAMIR - Exam Quality Assessment: Denies: Supplemental Oxygen General: Reports: Alert, Oriented, Cooperative, No Acute Distress Lungs: Reports: Clear to Auscultation, Normal Respiratory Effort Cardiovascular: Reports: Regular Rate, Regular Rhythm GI/Abdominal Exam: Normal Bowel Sounds, Soft, No Distention, Other ( serosanguineous drainage from Char right inguinal however no wound dehiscence ). No: Distended (Male) Exam: No Hernia Back Exam: Denies: CVA Tenderness (L), CVA Tenderness (R) Extremities: No Pedal Edema Skin: Reports: Other (Drainage [place] surgical wound) Wound/Incisions: Reports: Drainage Neurological: Denies: Normal Gait Psy/Mental Status: Reports: Alert. Denies: Anxious
[2020-01-29 18:01] VITALS: BP 140/60; PULSE 76
== END 2020-01-29 12:49 ==
LOC: KA.SDS 08:23 → KA.MS 16:30 → KA.SDS 01-29 12:49
PROVIDERS: ATTEND Family Medicine
DX: K40.91 Unilateral inguinal hernia, without obstruction or gangrene, recurrent (principal); I10 Essential (primary) hypertension; E11.9 Type 2 diabetes mellitus without complications; F33.9 Major depressive disorder, recurrent, unspecified; I48.20 Chronic atrial fibrillation, unspecified; E78.49 Other hyperlipidemia; G89.29 Other chronic pain; M17.11 Unilateral primary osteoarthritis, right knee; M19.032 Primary osteoarthritis, left wrist; Z79.01 Long term (current) use of anticoagulants; Z79.84 Long term (current) use of oral hypoglycemic drugs; Z79.899 Other long term (current) drug therapy; Z86.73 Personal history of transient ischemic attack (TIA), and cerebral infarction without residual deficits
CPT/HCPCS: 00830; 36415; 82962; 85610; A9270-GY; C1781; J0690; J2270; J2704; J3010; J3490; J7030

== ENCOUNTER 2020-02-27 09:31 | Emergency (ER) | payer MEDICARE, BC ==
--- NOTE | 2020-02-27 09:53 | EDM.PDOC ---
ED HPI GENERAL MEDICAL PROBLEM - General Chief Complaint: General Stated Complaint: FELL AND HIT HEAD A COUPLE DAYS AGO Time Seen by Provider: 02/27/20 09:40 Source of Information: Reports: Patient, EMS, Family History Limitations: Reports: No Limitations - History of Present Illness INITIAL COMMENTS - FREE TEXT/NARRATIVE: 84 YO WM presents to ER by EMS due to weakness. reports patient hasn't been eating or drinking well and has been feeling weak over the last few days. states patient fell in bathroom 2 days ago due to weakness and has been complaining of neck pain, right shoulder pain and right hand pain since the fall. Pt has been sleeping more per and has lost weight since his hernia surgery 01/28/2020. Pt currently denies headache, nausea/vomiting or fever/ chills. Pt denies cough/congestion, no chest pain or shortness of breath. Pt with history of A Fib, NIDDM and HTN. Onset Date: 02/25/20 Duration: Day(s): (3) Location: Reports: Head, Neck, Upper Extremity, Right Quality: Reports: Ache Severity: Moderate Improves with: Reports: Rest Worsens with: Reports: Movement Associated Symptoms: Reports: Loss of Appetite, Malaise, Weakness. Denies: Confusion, Chest Pain, Cough, cough w sputum, Fever/Chills, Headaches, Nausea/ Vomiting, Rash, Seizure, Shortness of Breath, Syncope Right Shoulder Pain Score (Numeric/FACES): 8 - Related Data Allergies Allergy/AdvReac Type Severity Reaction Status Date / Time No Known Drug Allergies Allergy Other Verified 02/27/20 11:03 Home Meds: Home Meds Hydrochlorothiazide 25 mg PO DAILY 06/22/14 [History] Sertraline HCl 100 mg PO DAILY 06/22/14 [History] Simvastatin 20 mg PO BEDTIME 06/22/14 [History] lisinopriL [Prinivil] 20 mg PO DAILY 06/22/14 [History] oxyCODONE HCl [Oxycodone HCl] 10 mg PO BID 06/22/14 [History] Fluticasone Propionate [Flonase] 2 spray NASBOTH DAILY PRN 12/24/14 [History] Metoprolol Succinate [Toprol XL] 25 mg PO DAILY 02/17/16 [History] Famotidine [Pepcid AC] 20 mg PO DAILY #30 tablet 03/29/16 [Rx] metFORMIN [Glucophage] 1,000 mg PO BIDMEALS 05/22/16 [History] Folic Acid 1 mg PO DAILY 02/28/18 [History] Mirtazapine 7.5 mg PO BEDTIME 02/28/18 [History] Warfarin Sodium 5 mg PO DAILY 02/28/18 [History] Acetaminophen [Tylenol] 650 mg PO Q4H PRN 01/27/20 [History] Furosemide 20 mg PO ASDIRECTED 01/27/20 [History] tiZANidine [Zanaflex] 2 mg PO DAILY PRN 01/27/20 [History] traZODone HCl [Trazodone HCl] 50 mg PO BEDTIME PRN 01/27/20 [History] Rup Rub 1 applic TOP TID 01/28/20 [History] Sennosides/Docusate Sodium [Senna-S Laxative Tablet] 1 each PO BEDTIME #30 tablet 01/29/20 [Rx] Past Medical History HEENT History: Reports: Cataract, Hard of Hearing, Impaired Vision Cardiovascular History: Reports: Afib, Arrhythmia, Blood Clots/VTE/DVT, Bypass, Heart Murmur, High Cholesterol, Hypertension, [place], Prior Cardiac Arrest Respiratory History: Reports: Pneumonia, Recurrent Gastrointestinal History: Reports: Chronic Constipation, Hemorrhoids Genitourinary History: Reports: None Musculoskeletal History: Reports: Arthritis, Back Pain, Chronic, Gout Other Musculoskeletal History: 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 Neurological History: Reports: CVA Psychiatric History: Reports: Depression, Mood Swings Endocrine/Metabolic History: Reports: Diabetes, Type II Hematologic History: Reports: Anticoagulation Therapy Oncologic (Cancer) History: Reports: None - Infectious Disease History Infectious Disease History: Reports: None - Past Surgical History HEENT Surgical History: Reports: Cataract Surgery Cardiovascular Surgical History: Reports: Coronary Artery Bypass GI Surgical History: Reports: Appendectomy, Colonoscopy, Other (See Below) Male Surgical History: Reports: Vasectomy Neurological Surgical History: Reports: Lumbar Spine, Spinal Fusion, Other (See Below) Social & Family History - Family History Family Medical History: Noncontributory - Caffeine Use Caffeine Use: Reports: Coffee, Soda - Living Situation & Occupation Living situation: Reports: Occupation: Retired ED ROS GENERAL - Review of Systems Review Of Systems: See Below Constitutional: Reports: Malaise, Weakness, Decreased Appetite, Weight Loss HEENT: Reports: No Symptoms Respiratory: Reports: No Symptoms Cardiovascular: Reports: No Symptoms Endocrine: Reports: No Symptoms GI/Abdominal: Reports: Anorexia, Decreased Appetite : Reports: No Symptoms Musculoskeletal: Reports: Neck Pain, Shoulder Pain, Hand Pain Skin: Reports: No Symptoms Neurological: Reports: No Symptoms Psychiatric: Reports: No Symptoms Hematologic/Lymphatic: Reports: No Symptoms Immunologic: Reports: No Symptoms ED EXAM, GENERAL - Physical Exam Exam: See Below Exam Limited By: No Limitations General Appearance: Alert, WD/WN, No Apparent Distress Eye Exam: Bilateral Eye: PERRL Ears: Normal External Exam, Normal Canal, Hearing Grossly Normal, Normal TMs Nose: Normal Inspection, Normal Mucosa, No Blood Throat/Mouth: Normal Inspection, Normal Lips, Normal Teeth, Normal Gums, Normal Oropharynx, Normal Voice, No Airway Compromise Head: Atraumatic, Normocephalic Neck: Supple, Full Range of Motion, Tender Midline Respiratory/Chest: No Respiratory Distress, Lungs Clear, Normal Breath Sounds, No Accessory Muscle Use, Chest Non-Tender Cardiovascular: Normal Peripheral Pulses, No Edema, No Gallop, No JVD, No Murmur , No Rub, Irregularly Irregular GI/Abdominal: Normal Bowel Sounds, Soft, Non-Tender, No Organomegaly, No Distention, No Abnormal Bruit, No Mass Back Exam: Normal Inspection, Full Range of Motion, NT Extremities: No Pedal Edema, Normal Capillary Refill (tenderness to right humeral head, swelling to right thumb) Neurological: Alert, Oriented, CN II-XII Intact, Normal Cognition, Normal Gait, Normal Reflexes, No Motor/Sensory Deficits Psychiatric: Normal Affect, Normal Mood Skin Exam: Warm, Dry, Intact, Normal Color, No Rash Lymphatic: No Adenopathy EKG INTERPRETATION EKG Date: 02/27/20 Time: 09:46 Rhythm: A-Fib Rate (Beats/Min): 80 Mcleod: Normal P-Wave: Absent QRS: Normal ST-T: Normal QT: Normal Course - Vital Signs Last Recorded V/S: Last Vital Signs Temp 36.1 C 02/27/20 10:04 Pulse 88 02/27/20 10:30 Resp 18 02/27/20 10:30 BP 135/64 02/27/20 10:30 Pulse Ox 98 02/27/20 10:30 - Orders/Labs/Meds Orders: Active Orders 24 hr Category Date Time Status EKG Documentation Completion [RC] ASDIRECTED Care 02/27/20 09:42 Active Peripheral IV Care [RC] . DIRECTED Care 02/27/20 09:55 Active Sodium Chloride 0.9% [Normal Saline] 500 ml Med 02/27/20 10:00 Active IV .BOLUS Sodium Chloride 0.9% [Saline Flush] Med 02/27/20 09:55 Active 10 ml FLUSH Q8HR PRN Peripheral IV Insertion Adult [OM.PC] Routine Oth 02/27/20 09:55 Ordered EKG 12 Lead [EK] Routine Ther 02/27/20 09:42 Ordered Medication Orders Sodium Chloride (Normal Saline) 500 mls @ 500 drops/hr IV .BOLUS TAMIR Last Admin: 02/27/20 10:15 Dose: 500 drops/hr Sodium Chloride (Saline Flush) 10 ml FLUSH Q8HR PRN PRN Reason: keep vein open Labs: Laboratory Tests 02/27/20 02/27/20 02/27/20 Range/Units 09:55 09:55 10:00 WBC 13.26 H (5.00-10.00) 10^3/uL RBC 3.27 L (4.50-6.00) 10^6/uL Hgb 9.6 L (13.0-17.0) g/dL Hct 28.8 L (40.0-52.0) % MCV 88.1 (82.0-92.0) fL MCH 29.4 (27.0-31.0) pg MCHC 33.3 (32.0-36.0) g/dL RDW 13.6 (11.5-14.5) % Plt Count 255 (150-400) 10^3/uL MPV 10.7 H (7.4-10.4) fL Immature Gran % (Auto) 0.1 (0.0-5.0) % Neut % (Auto) 71.5 H (50.0-70.0) % Lymph % (Auto) 18.3 L (20.0-40.0) % Cannon % (Auto) 9.7 H (2.0-8.0) % Eos % (Auto) 0.0 L (1.0-3.0) % Baso % (Auto) 0.4 (0.0-1.0) % Immature Gran # (Auto) 0.01 (0.00-0.50) 10^3/uL Neut # (Auto) 9.49 H (2.50-7.00) 10^3/uL Lymph # (Auto) 2.43 (1.00-4.00) 10^3/uL Cannon # (Auto) 1.28 H (0.10-0.80) 10^3/uL Eos # (Auto) 0.00 L (0.10-0.30) 10^3/uL Baso # (Auto) 0.05 (0.00-0.10) 10^3/uL Sodium 137 (136-145) mmol/L Potassium 3.8 (3.3-5.3) mmol/L Chloride 99 (98-115) mmol/L Carbon Dioxide 28.4 (21.0-32.0) mmol/L Anion Gap 13.4 (5-15) mmol/L BUN 21 (6-25) mg/dL Creatinine 1.01 (0.51-1.17) mg/dL Est Cr Clr Drug Dosing 56.22 mL/min Estimated GFR (MDRD) > 60 mL/min Glucose 170 H (75 - 99) mg/dL Calcium 9.3 (8.7-10.3) mg/dL Total Bilirubin 0.4 (0.2-1.0) mg/dL AST 9 L (15-37) U/L ALT 11 L (12-78) U/L Alkaline Phosphatase 59 (46-116) IU/L Creatine Kinase 25 L (26-276) U/L CK-MB (CK-2) < 0.50 (0.00-4.30) ng/mL Troponin I < 0.04 (0.00-0.070) ng/mL B-Natriuretic Peptide 251 H (0-100) pg/mL Total Protein 6.8 (6.4-8.2) g/dL Albumin 2.99 L (3.00-4.80) g/dL Specimen Type Urinvoid Urine Color Yellow (YELLOW) Urine Appearance Clear (CLEAR) Urine pH 5.0 (5.0-9.0) Ur Specific [place] 1.015 (1.005-1.030) Urine Protein Negative (NEGATIVE) mg/dL Urine Glucose (UA) Negative (NEGATIVE) mg/dL Urine Ketones Negative (NEGATIVE) mg/dL Urine Occult Blood Moderate H (NEGATIVE) Urine Nitrite Negative (NEGATIVE) Urine Bilirubin Negative (NEGATIVE) Urine Urobilinogen 0.2 (0.2-1.0) E.U./dL Ur Leukocyte Esterase Negative (NEGATIVE) Urine RBC 5-10 H (0-5) /HPF Urine WBC 0-5 (0-5) /HPF Urine Bacteria Occasional (NONE TO FEW) /HPF Meds: Medications Generic Name Dose Route Start Last Admin Trade Name Freq PRN Reason Stop Dose Admin Sodium Chloride 500 mls @ 500 drops/hr 02/27/20 10:00 02/27/20 10:15 Normal Saline IV 500 drops/hr .BOLUS TAMIR Administration Sodium Chloride 10 ml 02/27/20 09:55 Saline Flush FLUSH Q8HR PRN keep vein open - Radiology Interpretation Free Text/Narrative:: right hand- NAD right shoulder- NAD CXR- NAD CT head-NAD CT cervical spine- NAD Departure - Departure Time of Disposition: 12:15 Disposition: DC/Tfer to [facility] Condition: Fair Clinical Impression: Generalized weakness, Hypoalbuminemia, Risk for falls - Discharge Information Referrals: Anne Sawant MD [Primary Care Provider] - Forms: ED Department Discharge Sepsis Event Note - Focused Exam Vital Signs: Vital Signs Temp Pulse Resp BP Pulse Ox 02/27/20 10:30 88 18 135/64 98 02/27/20 10:04 36.1 C 88 16 148/88 H 98 Date Exam was Performed: 02/27/20 Time Exam was Performed: 12:12 - My Orders Last 24 Hours: My Active Orders 02/27/20 09:42 EKG Documentation Completion [RC] ASDIRECTED EKG 12 Lead [EK] Routine 02/27/20 09:55 Peripheral IV Care [RC] . DIRECTED Sodium Chloride 0.9% [Saline Flush] 10 ml FLUSH Q8HR PRN Peripheral IV Insertion Adult [OM.PC] Routine 02/27/20 10:00 Sodium Chloride 0.9% [Normal Saline] 500 ml IV .BOLUS - Assessment/Plan Last 24 Hours: My Active Orders 02/27/20 09:42 EKG Documentation Completion [RC] ASDIRECTED EKG 12 Lead [EK] Routine 02/27/20 09:55 Peripheral IV Care [RC] . DIRECTED Sodium Chloride 0.9% [Saline Flush] 10 ml FLUSH Q8HR PRN Peripheral IV Insertion Adult [OM.PC] Routine 02/27/20 10:00 Sodium Chloride 0.9% [Normal Saline] 500 ml IV .BOLUS Assessment:: 1. Generalized weakness 2. hypoalbuminemia 3. frequent falls Plan: 1. Discussed case with Jayme Amato who talked with family at length regarding continued need for care at assisted care facility. after much discussion, patient and family agreed with placement. Pt will return to [place] today. Pt without any obvious reason for hospitalization other than safety concerns. 2. Discharge to [place]- Jayme Amato will write orders for placement 3. continue supportive care 4. encourage better nutrition 5. PT/OT eval in [place]
[2020-02-27] MEDS ORDERED: Sodium Chloride 0.9% 10 ML Syringe FLUSH PRN (09:55)
[2020-02-27 10:07] VITALS: PULSE 88
[2020-02-27] MEDS: Sodium Chloride 0.9% 500 ML IV SCH (10:15)
[2020-02-27 10:39] LABS: ANION GAP 13.4 mmol/L (5-15); CHLORIDE,CL 99 mmol/L (98-115); SODIUM,NA 137 mmol/L (136-145)
[2020-02-27 10:43] VITALS: BP 135/64
--- NOTE | 2020-02-27 11:12 | CR ---
[id number] RAD/RAD Chest PA or AP 1V EXAM: RAD Chest PA or AP 1V INDICATION: FALL. COMPARISON: None. DISCUSSION: Cardiomediastinal silhouette is normal in size and contour. No infiltrate, effusion, pneumothorax, or edema. No radiographically evident rib fracture. IMPRESSION: No acute findings. Abdelrahman Lombardo MD 02/27/20 2401 Thank you for allowing us to participate in the care of your patient.
--- NOTE | 2020-02-27 11:15 | CR ---
[id number] RAD/RAD Shoulder Right 2V Min Exam: RAD Shoulder Right 2V Min Indication:FALL. Comparison: No prior imaging for comparison. Discussion: No acute fracture or dislocation. Glenohumeral and acromioclavicular osteoarthritis. Degenerative spurring along the bursal surface of the acromion extending into the subacromial space. Calcific tendinitis versus capsular mineralization projecting over the humeral head. Diffuse bone demineralization. Impression: No acute findings. Abdelrahman Lombardo MD 02/27/20 1112 Thank you for allowing us to participate in the care of your patient.
--- NOTE | 2020-02-27 11:16 | CR ---
[id number] RAD/RAD Hand Right 3V Exam: RAD Hand Right 3V Indication:FALL. Comparison: None. Discussion: Diffuse bone demineralization. Scattered changes of osteoarthritis. Mineralized debris/synovitis and/or intra-articular osteochondral bodies scattered throughout the hand and wrist. No radiographically evident fracture or dislocation. No AVN or erosive changes. Impression: No acute findings. Abdelrahman Lombardo MD 02/27/20 1113 Thank you for allowing us to participate in the care of your patient.
--- NOTE | 2020-02-27 11:18 | CT ---
[id number] CT/CT Head WO IV EXAM: CT Head WO IV CLINICAL DATA: FALL. COMPARISON STUDY: None FINDINGS: No intracranial hemorrhage, extra-axial fluid collection, mass, or acute ischemia. There is encephalomalacia within the left posterior cerebral artery distribution consistent with old infarct. Generalized parenchymal atrophy with scattered areas of nonspecific white matter disease, commonly seen as sequela of chronic microvascular ischemia. Soft tissues are unremarkable. Mild mucosal thickening in the paranasal sinuses. No evidence of aggressive sinusitis. The mastoid air cells are well aerated and clear. IMPRESSION: No acute intracranial findings. Kyle Castellanos DO 02/27/20 1115 Thank you for allowing us to participate in the care of your patient.
--- NOTE | 2020-02-27 11:21 | CT ---
[id number] CT/CT Cervical Spine WO IV EXAM: CT Cervical Spine WO IV INDICATION: FALL. COMPARISON: None. DISCUSSION: No fracture or compression deformity. Vertebral bodies remain in normal alignment. Diffuse cervical spondylosis, including advanced right and C2-3 through C7-T1 facet joint arthropathy. Diffuse bone demineralization. No prevertebral soft tissue edema. Bulky calcified atherosclerotic plaque in both carotid arteries at the bifurcations. Apical predominant parenchymal emphysema. IMPRESSION: No acute findings in the cervical spine. Abdelrahman Lombardo MD 02/27/20 1118 Thank you for allowing us to participate in the care of your patient.
== END 2020-02-27 13:20 ==
LOC: KA.ED 09:31
DX: E88.09 Other disorders of plasma-protein metabolism, not elsewhere classified (principal); E11.9 Type 2 diabetes mellitus without complications; F32.9 Major depressive disorder, single episode, unspecified; I48.91 Unspecified atrial fibrillation; I10 Essential (primary) hypertension; I25.2 Old myocardial infarction; E78.00 Pure hypercholesterolemia, unspecified; Z79.84 Long term (current) use of oral hypoglycemic drugs; Z79.01 Long term (current) use of anticoagulants; Z79.899 Other long term (current) drug therapy; Z86.73 Personal history of transient ischemic attack (TIA), and cerebral infarction without residual deficits
CPT/HCPCS: 70450; 71045; 72125; 73030-RT; 73130-RT; 80053; 81001; 82550; 82553; 83880; 84484; 85025; 93005; 96360; 99284; 99285-25; J7040

== ENCOUNTER 2020-03-16 12:46 | Emergency (ER) | payer MEDICARE, BC ==
[2020-03-16] MEDS: Sodium Chloride 0.9% 10 ML Syringe FLUSH PRN (13:10)
[2020-03-16] MEDS: Sodium Chloride 0.9% 500 ML IV SCH (13:37)
--- NOTE | 2020-03-16 13:43 | EDM.PDOC ---
ED HPI GENERAL MEDICAL PROBLEM - General Chief Complaint: General Stated Complaint: WEAKNESS Time Seen by Provider: 03/16/20 13:18 Source of Information: Reports: Patient, Provider History Limitations: Reports: No Limitations - History of Present Illness INITIAL COMMENTS - FREE TEXT/NARRATIVE: Patient presents today from [facility] with frequent falls recently due to balance problems and general weakness he says. His right arm is hurting all over. He has been home from the [facility] after leaving [facility]. His and son have been taking care of him but now his son is back at work and not around as much and his care is difficult for his , per the provider phone call. The falls have occurred over the two weeks he has been back home. He says he had a fever of 100.4 at home two days ago. Afebrile in ER and at Clinic today. The [place] provider says he had some chest pain also two days ago but patient doesn' t recall any chest pain in past few days, he says he may have forgotten it. Lower Back Pain Score (Numeric/FACES): 5 - Related Data Allergies Allergy/AdvReac Type Severity Reaction Status Date / Time No Known Drug Allergies Allergy Other Verified 03/16/20 12:49 Home Meds: Home Meds Hydrochlorothiazide 25 mg PO DAILY 06/22/14 [History] Sertraline HCl 100 mg PO DAILY 06/22/14 [History] Simvastatin 20 mg PO BEDTIME 06/22/14 [History] lisinopriL [Prinivil] 20 mg PO DAILY 06/22/14 [History] oxyCODONE HCl [Oxycodone HCl] 10 mg PO BID 06/22/14 [History] Fluticasone Propionate [Flonase] 2 spray NASBOTH DAILY PRN 12/24/14 [History] Metoprolol Succinate [Toprol XL] 25 mg PO DAILY 02/17/16 [History] Famotidine [Pepcid AC] 20 mg PO DAILY #30 tablet 03/29/16 [Rx] metFORMIN [Glucophage] 1,000 mg PO BIDMEALS 05/22/16 [History] Folic Acid 1 mg PO DAILY 02/28/18 [History] Mirtazapine 7.5 mg PO BEDTIME 02/28/18 [History] Acetaminophen [Tylenol] 650 mg PO Q4H PRN 01/27/20 [History] Furosemide 20 mg PO ASDIRECTED 01/27/20 [History] tiZANidine [Zanaflex] 2 mg PO DAILY PRN 01/27/20 [History] traZODone HCl [Trazodone HCl] 50 mg PO BEDTIME PRN 01/27/20 [History] Carboxymethylcellulose Sodium [Refresh Tears] 0.1 ml EYEBOTH DAILY 03/16/20 [ History] Lidocaine 2% [Xylocaine 2% Jelly] 0.5 ml TOP DAILY PRN 03/16/20 [History] Non-Formulary Medication [NF Drug] 1 applic TOP BID PRN 03/16/20 [History] Sennosides/Docusate Sodium [Senna-S Laxative Tablet] 1 each PO BEDTIME 03/16/20 [History] Warfarin [Coumadin] 1 mg PO ASDIRECTED 03/16/20 [History] oxyCODONE 5 mg PO BID PRN 03/16/20 [History] polyethylene glycoL 3350 [MiraLAX] 17 g PO DAILY PRN 03/16/20 [History] Past Medical History HEENT History: Reports: Cataract, Hard of Hearing, Impaired Vision Cardiovascular History: Reports: Afib, Arrhythmia, Blood Clots/VTE/DVT, Bypass, Heart Murmur, High Cholesterol, Hypertension, NE, Prior Cardiac Arrest Respiratory History: Reports: Pneumonia, Recurrent Gastrointestinal History: Reports: Chronic Constipation, Hemorrhoids Genitourinary History: Reports: None Musculoskeletal History: Reports: Arthritis, Back Pain, Chronic, Gout Other Musculoskeletal History: 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 Neurological History: Reports: CVA Psychiatric History: Reports: Depression, Mood Swings Endocrine/Metabolic History: Reports: Diabetes, Type II Hematologic History: Reports: Anticoagulation Therapy Oncologic (Cancer) History: Reports: None - Infectious Disease History Infectious Disease History: Reports: None - Past Surgical History HEENT Surgical History: Reports: Cataract Surgery Cardiovascular Surgical History: Reports: Coronary Artery Bypass GI Surgical History: Reports: Appendectomy, Colonoscopy, Other (See Below) Male Surgical History: Reports: Vasectomy Neurological Surgical History: Reports: Lumbar Spine, Spinal Fusion, Other (See Below) Social & Family History - Family History Family Medical History: Noncontributory - Tobacco Use Smoking Status *Q: Never Smoker - Caffeine Use Caffeine Use: Reports: Coffee, Soda - Recreational Drug Use Recreational Drug Use: No - Living Situation & Occupation Living situation: Reports: Occupation: Retired ED ROS GENERAL - Review of Systems Review Of Systems: See Below Constitutional: Reports: Fever, Weakness, Decreased Appetite. Denies: Chills HEENT: Denies: Ear Pain, Throat Pain, Vision Change Respiratory: Denies: Shortness of Breath, Cough Cardiovascular: Reports: Lightheadedness, Other (chronic A Fib). Denies: Chest Pain, Syncope GI/Abdominal: Reports: Constipation (chronic, uses softener), Decreased Appetite (chronic). Denies: Abdominal Pain, Diarrhea, Vomiting : Denies: Dysuria, Flank Pain Musculoskeletal: Reports: Shoulder Pain, Arm Pain, Joint Pain (all his joints hurt some times). Denies: Neck Pain, Back Pain, Leg Pain, Foot Pain Skin: Denies: Cyanosis, Jaundice, Mottled, Pallor, Diaphoresis Neurological: Reports: Difficulty Walking, Weakness (symmetric). Denies: Confusion, Dizziness, Headache, Seizure, Syncope, Trouble Speaking, Change in Speech Psychiatric: Denies: Agitation, Anxiety, Confusion ED EXAM, GENERAL - Physical Exam Exam: See Below Exam Limited By: No Limitations General Appearance: Alert, WD/WN, No Apparent Distress Ears: Normal External Exam, Hearing Grossly Normal Nose: Normal Inspection, No Blood Throat/Mouth: Normal Inspection, Normal Lips, Normal Voice, No Airway Compromise Head: Atraumatic, Normocephalic Neck: Normal Inspection, Supple, Non-Tender, Full Range of Motion Respiratory/Chest: No Respiratory Distress, Lungs Clear, Normal Breath Sounds Cardiovascular: Irregularly Irregular (rate 80-100) GI/Abdominal: Normal Bowel Sounds, Soft, Non-Tender, No Organomegaly, No Distention Back Exam: Normal Inspection, Full Range of Motion Extremities: Normal Inspection (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 Palpation tender at dorsal wrist, medial elbow and anterior shoulder. No deformity, lacerations or abrasions.) Neurological: Alert, Oriented Psychiatric: Normal Affect, Normal Mood Skin Exam: Warm, Dry, Intact, Normal Color, No Rash Course - Vital Signs Last Recorded V/S: Last Vital Signs Temp 98.1 F 03/16/20 12:55 Pulse 80 03/16/20 15:42 Resp 20 03/16/20 15:42 BP 117/57 L 03/16/20 15:42 Pulse Ox 97 03/16/20 15:42 - Orders/Labs/Meds Orders: Active Orders 24 hr Category Date Time Status EKG Documentation Completion [RC] ASDIRECTED Care 03/16/20 12:53 Active Peripheral IV Care [RC] . DIRECTED Care 03/16/20 12:53 Active Sodium Chloride 0.9% [Normal Saline] 500 ml Med 03/16/20 13:45 Ordered IV ASDIRECTED Sodium Chloride 0.9% [Saline Flush] Med 03/16/20 12:53 Active 10 ml FLUSH Q8HR PRN Peripheral IV Insertion Adult [OM.PC] Routine Oth 03/16/20 12:53 Ordered Medication Orders Sodium Chloride (Normal Saline) 500 mls @ 999 mls/hr IV ASDIRECTED [facility] Last Admin: 03/16/20 13:37 Dose: 999 mls/hr Sodium Chloride (Saline Flush) 10 ml FLUSH Q8HR PRN PRN Reason: keep vein open Last Admin: 03/16/20 13:10 Dose: 10 ml Labs: Laboratory Tests 03/16/20 03/16/20 03/16/20 Range/Units 13:04 13:04 14:45 WBC 17.18 H (5.00-10.00) 10^3/uL RBC 3.20 L (4.50-6.00) 10^6/uL Hgb 9.0 L (13.0-17.0) g/dL Hct 27.5 L (40.0-52.0) % MCV 85.9 (82.0-92.0) fL MCH 28.1 (27.0-31.0) pg MCHC 32.7 (32.0-36.0) g/dL RDW 14.0 (11.5-14.5) % Plt Count 364 D (150-400) 10^3/uL MPV 10.4 (7.4-10.4) fL Immature Gran % (Auto) 0.3 (0.0-5.0) % Neut % (Auto) 86.5 H (50.0-70.0) % Lymph % (Auto) 5.7 L (20.0-40.0) % Mckenzie % (Auto) 7.3 (2.0-8.0) % Eos % (Auto) 0.0 L (1.0-3.0) % Baso % (Auto) 0.2 (0.0-1.0) % Immature Gran # (Auto) 0.06 (0.00-0.50) 10^3/uL Neut # (Auto) 14.85 H (2.50-7.00) 10^3/uL Lymph # (Auto) 0.98 L (1.00-4.00) 10^3/uL Mckenzie # (Auto) 1.26 H (0.10-0.80) 10^3/uL Eos # (Auto) 0.00 L (0.10-0.30) 10^3/uL Baso # (Auto) 0.03 (0.00-0.10) 10^3/uL Sodium 137 (136-145) mmol/L Potassium 4.1 (3.3-5.3) mmol/L Chloride 98 (98-115) mmol/L Carbon Dioxide 27.4 (21.0-32.0) mmol/L Anion Gap 15.7 H (5-15) mmol/L BUN 26 H (6-25) mg/dL Creatinine 1.18 H (0.51-1.17) mg/dL Est Cr Clr Drug Dosing 51.15 mL/min Estimated GFR (MDRD) 59 mL/min Glucose 196 H (75 - 99) mg/dL Calcium 9.1 (8.7-10.3) mg/dL Troponin I < 0.04 (0.00-0.070) ng/mL Specimen Type Urinblad Urine Color Yellow (YELLOW) Urine Appearance Slightly cloudy H (CLEAR) Urine pH 5.0 (5.0-9.0) Ur Specific [place] 1.025 (1.005-1.030) Urine Protein 30 H (NEGATIVE) mg/dL Urine Glucose (UA) Negative (NEGATIVE) mg/dL Urine Ketones Negative (NEGATIVE) mg/dL Urine Occult Blood Moderate H (NEGATIVE) Urine Nitrite Negative (NEGATIVE) Urine Bilirubin Negative (NEGATIVE) Urine Urobilinogen 0.2 (0.2-1.0) E.U./dL Ur Leukocyte Esterase Negative (NEGATIVE) Urine RBC 20-30 H (0-5) /HPF Urine WBC 0-5 (0-5) /HPF Ur Epithelial Cells Few /LPF Amorphous Sediment Moderate H (0/HPF) /HPF Urine Bacteria Few (NONE TO FEW) /HPF Meds: Medications Generic Name Dose Route Start Last Admin Trade Name Freq PRN Reason Stop Dose Admin Sodium Chloride 500 mls @ 999 mls/hr 03/16/20 13:45 03/16/20 13:37 Normal Saline IV 999 mls/hr ASDIRECTED TAMIR Administration Sodium Chloride 10 ml 03/16/20 12:53 03/16/20 13:10 Saline Flush FLUSH 10 ml Q8HR PRN Administration keep vein open - Re-Assessments/Exams Free Text/Narrative Re-Assessment/Exam: 03/16/20 14:04 WBC is 17; I checked past labs and found that he runs 10.6 to 25.7 in numerous lab draws over the past 6 years. Patient doesn't recall why it runs elevated. 03/16/20 14:45 I talked with Jayme Amato, his PCP who isn't aware of any chronic WBC elevation. We will get a CXR and UA to rule out infection. Patient is stable. 03/16/20 15:26 CXR and UA are okay. Discussed findings with patient's daughter via phone. She says that his WBC usually goes up when his pseudogout flares up. She also says he has always been treated inpatient with it in the past. 03/16/20 16:01 I discussed findings with patient who really doesn't want to go to the [facility] again but feels he is too difficult for his to take care of and the NH is the best option. His son and daughter have each helped out recently but aren't always available. I discussed case further with Jayme Amato, MECHANICAL SPREADER OPERATOR who will arrange for [facility] admission since I can't do it from ER. In talking with the [facility] our nurse doesn't know if he can go today but they are trying. Patient is stable and comfortable; he has been resting/sleeping some while waiting on tests and disposition plans. 03/16/20 16:29 Jayme Arrington called me with a plan of patient going home tonight. The [facility] can't take him until 10:00 tomorrow morning. The patient is satisfied with this plan and we have discussed with family also. Patient stable at discharge. Departure - Departure Time of Disposition: 16:27 Disposition: Home, Self-Care 01 Condition: Good Clinical Impression: General weakness - Discharge Information Referrals: Anne Sawant MD [Primary Care Provider] - Forms: ED Department Discharge Additional Instructions: 1. The [facility] will be ready for you at 10:00 tomorrow morning. You can go home and spend the evening with your family. Jayme Amato NP with [facility] is making the arrangements for admission to the [facility]. Sepsis Event Note - Evaluation Sepsis Screening Result: No Definite Risk - Focused Exam Vital Signs: Vital Signs Temp Pulse Resp BP Pulse Ox 03/16/20 15:42 80 20 117/57 L 97 03/16/20 14:10 79 18 132/59 L 98 03/16/20 13:44 75 20 119/61 97 03/16/20 13:20 89 20 120/59 L 98 03/16/20 12:55 98.1 F 96 18 129/46 L 98 Date Exam was Performed: 03/16/20 Time Exam was Performed: 16:33 - My Orders Last 24 Hours: My Active Orders 03/16/20 12:53 EKG Documentation Completion [RC] ASDIRECTED Peripheral IV Care [RC] . DIRECTED Sodium Chloride 0.9% [Saline Flush] 10 ml FLUSH Q8HR PRN Peripheral IV Insertion Adult [OM.PC] Routine 03/16/20 13:45 Sodium Chloride 0.9% [Normal Saline] 500 ml IV ASDIRECTED - Assessment/Plan Last 24 Hours: My Active Orders 03/16/20 12:53 EKG Documentation Completion [RC] ASDIRECTED Peripheral IV Care [RC] . DIRECTED Sodium Chloride 0.9% [Saline Flush] 10 ml FLUSH Q8HR PRN Peripheral IV Insertion Adult [OM.PC] Routine 03/16/20 13:45 Sodium Chloride 0.9% [Normal Saline] 500 ml IV ASDIRECTED
[2020-03-16 14:00] LABS: ANION GAP 15.7 mmol/L (5-15); CHLORIDE,CL 98 mmol/L (98-115); SODIUM,NA 137 mmol/L (136-145)
--- NOTE | 2020-03-16 14:32 | CR ---
[id number] RAD/RAD Shoulder Right 2V Min EXAM: RAD Shoulder Right 2V Min INDICATION: Pain and fall. COMPARISON: February 27, 2020. 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 Prior sternotomy. No acute fracture or dislocation is identified. Remodeling of the undersurface of the acromion could relate to a chronic cuff tear. Decreased mineralization at the rotator cuff site. IMPRESSION: 1. No acute findings. 2. Stable mild to moderate osteoarthritis. Jaron Duarte MD 03/16/20 [id number] Thank you for allowing us to participate in the care of your patient.
--- NOTE | 2020-03-16 14:33 | CR ---
[id number] RAD/RAD Elbow Right 2V EXAM: RAD Elbow Right 2V INDICATION: Pain and fall. COMPARISON: None. DISCUSSION: Moderate osteoarthritis. No fracture, dislocation or joint effusion is identified, but positioning the lateral view is not optimal for effusion detection. IMPRESSION: 1. Moderate osteoarthritis. No acute findings. Jaron Duarte MD 03/16/20 [id number] Thank you for allowing us to participate in the care of your patient.
--- NOTE | 2020-03-16 14:43 | CR ---
[id number] RAD/RAD Wrist Right 3V Min Exam: RAD Wrist Right 3V Min Indication:PAIN, FALL. Comparison: No prior imaging for comparison. Discussion: Soft tissue swelling about the wrist. No radiographically evident fracture. No dislocation. Diffuse bone demineralization. TFCC chondrocalcinosis. Scattered changes of osteoarthritis in the hand and wrist. Intra-articular debris and/or small intra-articular osteochondral bodies versus capsular calcification adjacent to the carpus on lateral view. Impression: Soft tissue swelling without radiographically evident fracture or dislocation. Abdelrahman Lombardo MD 03/16/20 [id number] Thank you for allowing us to participate in the care of your patient.
--- NOTE | 2020-03-16 15:19 | CR ---
[id number] RAD/RAD Chest PA And Lateral EXAM: FRONTAL AND LATERAL CHEST INDICATION: FEVER. COMPARISON: February 27, 2020. DISCUSSION: Mild chronic left base scarring. No acute infiltrates are identified. Normal heart size. Sternotomy. Trace bilateral effusions. IMPRESSION: 1. Mild left base scarring. No acute infiltrates are identified. Jaron Duarte MD 03/16/20 [id number] Thank you for allowing us to participate in the care of your patient.
[2020-03-16 15:43] VITALS: BP 117/57; PULSE 80
== END 2020-03-16 17:15 | disposition home or self-care (01) ==
LOC: KA.ED 12:46
DX: R53.1 Weakness (principal); I48.91 Unspecified atrial fibrillation; E78.00 Pure hypercholesterolemia, unspecified; I10 Essential (primary) hypertension; E11.9 Type 2 diabetes mellitus without complications; F32.9 Major depressive disorder, single episode, unspecified; I25.2 Old myocardial infarction; M10.9 Gout, unspecified; Z79.84 Long term (current) use of oral hypoglycemic drugs; Z79.01 Long term (current) use of anticoagulants; Z79.899 Other long term (current) drug therapy; Z86.73 Personal history of transient ischemic attack (TIA), and cerebral infarction without residual deficits
CPT/HCPCS: 36415; 71046; 73030-RT; 73070-RT; 73110-RT; 80048; 81001; 84484; 85025; 93005; 99284; 99285-25; J7040

== ENCOUNTER 2020-03-29 21:00 | Inpatient (IN) | payer MEDICARE, BC ==
[2020-03-29] MEDS ORDERED: Sodium Chloride 0.9% 1,000 ML IV ONE (21:07)
[2020-03-29] MEDS ORDERED: Sodium Chloride 0.9% 10 ML Syringe FLUSH PRN (21:07)
[2020-03-29] MEDS ORDERED: Acetaminophen 500 MG Tab PO ONE (21:08)
--- NOTE | 2020-03-29 21:15 | EDM.PDOC ---
ED HPI GENERAL MEDICAL PROBLEM - General Chief Complaint: Fever Stated Complaint: fever Time Seen by Provider: 03/29/20 21:09 Source of Information: Reports: EMS, Care Home Records - History of Present Illness INITIAL COMMENTS - FREE TEXT/NARRATIVE: 84 YO WM presents to ER complaining of fever/chills which began tonight. Pr was recently admitted to the [place] 03/22/2020 for frequent falls with negative xrays per NH and patient. Pt reports he has been feeling weak and was found to have fever 100.9 with chills and myalgias which began tonight after supper. Pt denies shortness of breath, no cough/congestion, no dysuria or abdominal pain. Pt reports mild chest discomfort which has been on going and infrequent. Pt denies any chest pain at this time. Pt is alert and oriented x 3. 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 Onset: Today Location: Reports: Generalized Quality: Reports: Ache Severity: Mild Improves with: Reports: None Worsens with: Reports: None Associated Symptoms: Reports: Chest Pain, Fever/Chills, Loss of Appetite, Malaise. Denies: Confusion, Cough, cough w sputum, Diaphoresis, Headaches, Nausea/Vomiting, Rash, Seizure, Shortness of Breath, Syncope, Weakness Treatments [employer]: Reports: Acetaminophen - Related Data Allergies Allergy/AdvReac Type Severity Reaction Status Date / Time No Known Drug Allergies Allergy Other Verified 03/29/20 22:12 Home Meds: Home Meds Hydrochlorothiazide 25 mg PO DAILY 06/22/14 [History] Sertraline HCl 100 mg PO DAILY 06/22/14 [History] Simvastatin 20 mg PO BEDTIME 06/22/14 [History] lisinopriL [Prinivil] 20 mg PO DAILY 06/22/14 [History] oxyCODONE HCl [Oxycodone HCl] 10 mg PO BID 06/22/14 [History] Metoprolol Succinate [Toprol XL] 25 mg PO DAILY 02/17/16 [History] Famotidine [Pepcid AC] 20 mg PO DAILY #30 tablet 03/29/16 [Rx] metFORMIN [Glucophage] 1,000 mg PO BIDMEALS 05/22/16 [History] Folic Acid 1 mg PO DAILY 02/28/18 [History] Mirtazapine 7.5 mg PO BEDTIME 02/28/18 [History] Acetaminophen [Tylenol] 650 mg PO Q4H PRN 01/27/20 [History] Furosemide 20 mg PO ASDIRECTED 01/27/20 [History] tiZANidine [Zanaflex] 2 mg PO DAILY PRN 01/27/20 [History] traZODone HCl [Trazodone HCl] 50 mg PO BEDTIME PRN 01/27/20 [History] Carboxymethylcellulose Sodium [Refresh Tears] 0.1 ml EYEBOTH DAILY 03/16/20 [ History] Sennosides/Docusate Sodium [Senna-S Laxative Tablet] 1 each PO BEDTIME 03/16/20 [History] Warfarin [Coumadin] 1 mg PO ASDIRECTED 03/16/20 [History] oxyCODONE 5 mg PO BID PRN 03/16/20 [History] polyethylene glycoL 3350 [MiraLAX] 17 g PO DAILY PRN 03/16/20 [History] Magnesium Hydroxide [Milk of Magnesia] 30 ml PO DAILY PRN 03/29/20 [History] Past Medical History HEENT History: Reports: Cataract, Hard of Hearing, Impaired Vision Cardiovascular History: Reports: Afib, Arrhythmia, Blood Clots/VTE/DVT, Bypass, Heart Murmur, High Cholesterol, Hypertension, [place], Prior Cardiac Arrest Respiratory History: Reports: Pneumonia, Recurrent Gastrointestinal History: Reports: Chronic Constipation, Hemorrhoids Genitourinary History: Reports: None Musculoskeletal History: Reports: Arthritis, Back Pain, Chronic, Gout Other Musculoskeletal History: 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 Neurological History: Reports: CVA Psychiatric History: Reports: Depression, Mood Swings Endocrine/Metabolic History: Reports: Diabetes, Type II Hematologic History: Reports: Anticoagulation Therapy Oncologic (Cancer) History: Reports: None - Infectious Disease History Infectious Disease History: Reports: None - Past Surgical History HEENT Surgical History: Reports: Cataract Surgery Cardiovascular Surgical History: Reports: Coronary Artery Bypass GI Surgical History: Reports: Appendectomy, Colonoscopy, Other (See Below) Male Surgical History: Reports: Vasectomy Neurological Surgical History: Reports: Lumbar Spine, Spinal Fusion, Other (See Below) Social & Family History - Family History Family Medical History: Noncontributory - Caffeine Use Caffeine Use: Reports: Coffee, Soda - Living Situation & Occupation Living situation: Reports: Occupation: Retired ED ROS GENERAL - Review of Systems Review Of Systems: See Below Constitutional: Reports: Fever, Chills, Malaise HEENT: Reports: No Symptoms Respiratory: Reports: No Symptoms Cardiovascular: Reports: No Symptoms Endocrine: Reports: No Symptoms GI/Abdominal: Reports: No Symptoms : Reports: No Symptoms Musculoskeletal: Reports: Muscle Pain Skin: Reports: No Symptoms Neurological: Reports: No Symptoms Psychiatric: Reports: No Symptoms Hematologic/Lymphatic: Reports: No Symptoms Immunologic: Reports: No Symptoms ED EXAM, SEPSIS - Physical Exam Exam: See Below Exam Limited By: No Limitations General Appearance: Alert, WD/WN, No Apparent Distress Eye Exam: Bilateral Eye: PERRL Throat/Mouth: Normal Inspection, Normal Lips, Normal Teeth, Normal Gums, Normal Oropharynx, Normal Voice, No Airway Compromise Head: Atraumatic, Normocephalic Neck: Normal Inspection, Supple, Non-Tender, Full Range of Motion Respiratory/Chest: No Respiratory Distress, Lungs Clear, Normal Breath Sounds, No Accessory Muscle Use, Chest Non-Tender Cardiovascular: Normal Peripheral Pulses, Regular Rate, Rhythm, No Edema, No Gallop, No JVD, No Murmur, No Rub GI/Abdominal Exam: Normal Bowel Sounds, Soft, Non-Tender, No Organomegaly, No Distention, No Abnormal Bruit, No Mass, Pelvis Stable Back: Normal Inspection, Full Range of Motion, NT Extremities: Normal Inspection, Normal Range of Motion, Normal Capillary Refill , Joint Swelling, Arm Pain, Leg Pain Neurological: Alert, Oriented, CN II-XII Intact, Normal Cognition, Normal Reflexes, No Motor/Sensory Deficits Psychiatric: Normal Affect, Normal Mood Skin: Warm, Dry, Intact, Normal Color, No Rash Lymphatic: Bilateral: No Adenopathy EKG INTERPRETATION EKG Date: 03/29/20 Time: 21:52 Rhythm: A-Fib Rate (Beats/Min): 101 [place]: Normal P-Wave: Absent QRS: Normal ST-T: Normal QT: Normal Course - Vital Signs Last Recorded V/S: Last Vital Signs Temp 38.2 C H 03/29/20 21:05 Pulse 92 03/29/20 22:00 Resp 22 H 03/29/20 22:00 BP 100/47 L 03/29/20 22:00 Pulse Ox 96 03/29/20 22:00 - Orders/Labs/Meds Orders: Active Orders 24 hr Category Date Time Status Chest 1V Frontal [CR] Stat Exams 03/29/20 21:15 Ordered Chest 2V [CR] Stat Exams 03/29/20 21:07 Stop Req CK W CKMB [CHEM] Stat Lab 03/29/20 21:15 Ordered CORONAVIRUS COVID-19 PCR PHL Stat Lab 03/29/20 21:08 Ordered CULTURE BLOOD [BC] Stat Lab 03/29/20 21:07 Ordered CULTURE BLOOD [BC] Stat Lab 03/29/20 21:07 Ordered REFLEX LACTIC ACID YES OR NO [CHEM] Routine Lab 03/29/20 22:01 Received TROPONIN I [CHEM] Stat Lab 03/29/20 21:15 Ordered UA W/MICROSCOPIC [URIN] Stat Lab 03/29/20 21:07 Ordered Sodium Chloride 0.9% [Normal Saline] 1,000 ml Med 03/29/20 21:07 Ordered IV BOLUS Sodium Chloride 0.9% [Saline Flush] Med 03/29/20 21:07 Ordered 10 ml FLUSH Q8HR PRN Blood Culture x2 Reflex Set [OM.PC] Stat Oth 03/29/20 21:07 Ordered Isolation [COMM] Routine Oth 03/29/20 21:09 Ordered Saline Lock Insert [OM.PC] Stat Oth 03/29/20 21:07 Ordered Severe Sepsis Onset Time [OM.PC] Stat Oth 03/29/20 21:07 Ordered Medication Orders Sodium Chloride (Normal Saline) 1,000 mls @ 500 drops/hr IV BOLUS ONE Stop: 03/31/20 03:06 Last Admin: 03/29/20 21:35 Dose: 500 drops/hr Sodium Chloride (Saline Flush) 10 ml FLUSH Q8HR PRN PRN Reason: keep vein open Labs: Laboratory Tests 03/29/20 03/29/20 03/29/20 Range/Units 21:25 21:25 21:25 WBC 9.16 (5.00-10.00) 10^3/uL RBC 4.41 L (4.50-6.00) 10^6/uL Hgb 12.0 L D (13.0-17.0) g/dL Hct 36.7 L (40.0-52.0) % MCV 83.2 (82.0-92.0) fL MCH 27.2 (27.0-31.0) pg MCHC 32.7 (32.0-36.0) g/dL RDW 14.5 (11.5-14.5) % Plt Count 281 D (150-400) 10^3/uL MPV 10.3 (7.4-10.4) fL Immature Gran % (Auto) 0.3 (0.0-5.0) % Neut % (Auto) 78.5 H (50.0-70.0) % Lymph % (Auto) 11.5 L (20.0-40.0) % [place] % (Auto) 9.5 H (2.0-8.0) % Eos % (Auto) 0.0 L (1.0-3.0) % Baso % (Auto) 0.2 (0.0-1.0) % Neut # (Auto) 7.19 H (2.50-7.00) 10^3/uL Lymph # (Auto) 1.05 (1.00-4.00) 10^3/uL [place] # (Auto) 0.87 H (0.10-0.80) 10^3/uL Eos # (Auto) 0.00 L (0.10-0.30) 10^3/uL Baso # (Auto) 0.02 (0.00-0.10) 10^3/uL Immature Gran # (Auto) 0.03 (0.00-0.50) 10^3/uL Sodium 134 L (136-145) mmol/L Potassium 4.2 (3.3-5.3) mmol/L Chloride 97 L (98-115) mmol/L Carbon Dioxide 23.6 (21.0-32.0) mmol/L Anion Gap 17.6 H (5-15) mmol/L BUN 23 (6-25) mg/dL Creatinine 1.03 (0.51-1.17) mg/dL Est Cr Clr Drug Dosing 58.60 mL/min Estimated GFR (MDRD) > 60 mL/min Glucose 299 H (75 - 99) mg/dL Lactic Acid 3.6 H (0.4-2.0) mmol/L Calcium 8.5 L (8.7-10.3) mg/dL Total Bilirubin 0.3 (0.2-1.0) mg/dL AST 28 (15-37) U/L ALT 29 (12-78) U/L Alkaline Phosphatase 75 (46-116) IU/L Total Protein 6.0 L (6.4-8.2) g/dL Albumin 2.23 L (3.00-4.80) g/dL Meds: Medications Generic Name Dose Route Start Last Admin Trade Name Freq PRN Reason Stop Dose Admin Sodium Chloride 1,000 mls @ 500 drops/hr 03/29/20 21:07 03/29/20 21:35 Normal Saline IV 03/31/20 03:06 500 drops/hr BOLUS ONE Administration Sodium Chloride 10 ml 03/29/20 21:07 Saline Flush FLUSH Q8HR PRN keep vein open Discontinued Medications Generic Name Dose Route Start Last Admin Trade Name Freq PRN Reason Stop Dose Admin Acetaminophen 1,000 mg 03/29/20 21:08 03/29/20 21:55 Tylenol Extra Strength PO 03/29/20 21:09 Not Given ONETIME ONE - Radiology Interpretation Free Text/Narrative:: CXR- reticular interstitial lung markings in lower chest- suspicious for atypical pneumonia - Re-Assessments/Exams Free Text/Narrative Re-Assessment/Exam: 03/29/20 22:55 Pt alert and oriented x 3; NAD; SaO2- 98% RA; hemodynamically stable Will admit to medicine for further management- Orders per [facility]ica Mclean Departure - Departure Time of Disposition: 22:54 Disposition: Admitted As Inpatient 66 Condition: Fair Clinical Impression: Interstitial pneumonia Sepsis Qualifiers: Sepsis type: sepsis due to unspecified organism Sepsis acute organ dysfunction status: without acute organ dysfunction Qualified Code(s): A41.9 - Sepsis, unspecified organism - Discharge Information Forms: ED Department Discharge Sepsis Event Note - Focused Exam Vital Signs: Vital Signs Temp Pulse Resp BP Pulse Ox 03/29/20 22:00 92 22 H 100/47 L 96 03/29/20 21:30 104 H 24 H 99/33 L 96 03/29/20 21:05 38.2 C H 108 H 26 H 102/32 L 94 L Date Exam was Performed: 03/29/20 Time Exam was Performed: 22:33 - My Orders Last 24 Hours: My Active Orders 03/29/20 21:07 Chest 2V [CR] Stat CULTURE BLOOD [BC] Stat CULTURE BLOOD [BC] Stat UA W/MICROSCOPIC [URIN] Stat Sodium Chloride 0.9% [Normal Saline] 1,000 ml IV BOLUS Sodium Chloride 0.9% [Saline Flush] 10 ml FLUSH Q8HR PRN Blood Culture x2 Reflex Set [OM.PC] Stat Saline Lock Insert [OM.PC] Stat Severe Sepsis Onset Time [OM.PC] Stat 03/29/20 21:08 CORONAVIRUS COVID-19 PCR PHL Stat 03/29/20 21:09 Isolation [COMM] Routine 03/29/20 21:15 Chest 1V Frontal [CR] Stat CK W CKMB [CHEM] Stat TROPONIN I [CHEM] Stat 03/29/20 22:01 REFLEX LACTIC ACID YES OR NO [CHEM] Routine - Assessment/Plan Last 24 Hours: My Active Orders 03/29/20 21:07 Chest 2V [CR] Stat CULTURE BLOOD [BC] Stat CULTURE BLOOD [BC] Stat UA W/MICROSCOPIC [URIN] Stat Sodium Chloride 0.9% [Normal Saline] 1,000 ml IV BOLUS Sodium Chloride 0.9% [Saline Flush] 10 ml FLUSH Q8HR PRN Blood Culture x2 Reflex Set [OM.PC] Stat Saline Lock Insert [OM.PC] Stat Severe Sepsis Onset Time [OM.PC] Stat 03/29/20 21:08 CORONAVIRUS COVID-19 PCR PHL Stat 03/29/20 21:09 Isolation [COMM] Routine 03/29/20 21:15 Chest 1V Frontal [CR] Stat CK W CKMB [CHEM] Stat TROPONIN I [CHEM] Stat 03/29/20 22:01 REFLEX LACTIC ACID YES OR NO [CHEM] Routine Assessment:: 1. Interstitial pneumonia 2. elevated lactic acid 3. fever Plan: 1. admit to [facility] 2. supportive care 3. vancomycin 1g IV now then pharmacy to dose 4. zosyn 3.375g IV Q6 5. tylenol 1g PO Q6 PRN 6. repeat lactic acid Q4 7. repeat labs in am
[2020-03-29 21:54] LABS: ANION GAP 17.6 mmol/L (5-15); CHLORIDE,CL 97 mmol/L (98-115); SODIUM,NA 134 mmol/L (136-145)
[2020-03-29] MEDS ORDERED: Piperacillin/Tazobactam/Dext 3.375 GM in Premix Bag 1 BAG IV ONE (22:38)
[2020-03-29] MEDS: Sodium Chloride 0.9% 1,000 ML IV SCH (23:00)
[2020-03-30] MEDS: Piperacillin/Tazobactam/Dext 3.375 GM in Premix Bag 1 BAG IV SCH ×4 (04:51→23:08)
[2020-03-30] MEDS ORDERED: traZODone 50 MG Tab PO PRN (06:16)
[2020-03-30] MEDS ORDERED: tiZANidine 2 MG Tab PO PRN (06:16)
[2020-03-30 07:13] LABS: ANION GAP 15.6 mmol/L (5-15); CHLORIDE,CL 102 mmol/L (98-115); SODIUM,NA 140 mmol/L (136-145)
--- NOTE | 2020-03-30 07:48 | CR ---
[id number] RAD/RAD Chest PA or AP 1V EXAM: RAD Chest PA or AP 1V INDICATION: FEVER COMPARISON: None. DISCUSSION: Median sternotomy wires. Left basilar linear atelectasis and/or scarring. Cardiomediastinal silhouette is normal in size and contour. Bibasilar pulmonary infiltrates. No pneumothorax or pleural effusion. IMPRESSION: Bibasilar pulmonary infiltrates. Kyle Castellanos DO 03/30/20 0747 Thank you for allowing us to participate in the care of your patient.
[2020-03-30] MEDS: Insulin Aspart 100 Units/ML 3 ML Pen SUBCUT SCH ×4 (08:01→21:23)
[2020-03-30] MEDS: Carboxymethylcellulose Sodium 0.5% Ophth Soln 15 ML Bottle EYEBOTH SCH (08:19)
[2020-03-30] MEDS: Folic Acid 1 MG Tab PO SCH (08:20)
[2020-03-30] MEDS: oxyCODONE 5 MG Tab PO SCH ×2 (08:20→20:37)
[2020-03-30] MEDS: Sertraline 50 MG Tab PO SCH (08:21)
[2020-03-30] MEDS: Famotidine 20 MG Tab PO SCH (08:21)
[2020-03-30] MEDS ORDERED: Sodium Phosphate,Monobasic/Sodium Phosphate,Dibasic Enema 133 ML Bottle RECTAL ONE (11:11)
[2020-03-30] MEDS ORDERED: Magnesium Citrate Solution 296 ML Bottle PO ONE (11:11)
--- NOTE | 2020-03-30 11:52 | PCM.HP.2 ---
H&P History of Present Illness - General Date of Service: 03/30/20 Admit Problem/Dx: Admission Diagnosis/Problem Admission Diagnosis/Problem Interstitial pneumonia Source of Information: Patient, Long-Term Records, Old Records, RN Generalized Pain Score (Numeric/FACES): 7 - Related Data Allergies/Adverse Reactions: Allergies Allergy/AdvReac Type Severity Reaction Status Date / Time No Known Drug Allergies Allergy Other Verified 03/29/20 22:12 Home Medications: Home Meds Hydrochlorothiazide 25 mg PO DAILY 06/22/14 [History] Sertraline HCl 100 mg PO DAILY 06/22/14 [History] Simvastatin 20 mg PO BEDTIME 06/22/14 [History] lisinopriL [Prinivil] 20 mg PO DAILY 06/22/14 [History] oxyCODONE HCl [Oxycodone HCl] 10 mg PO BID 06/22/14 [History] Metoprolol Succinate [Toprol XL] 25 mg PO DAILY 02/17/16 [History] Famotidine [Pepcid AC] 20 mg PO DAILY #30 tablet 03/29/16 [Rx] metFORMIN [Glucophage] 1,000 mg PO BIDMEALS 05/22/16 [History] Folic Acid 1 mg PO DAILY 02/28/18 [History] Mirtazapine 7.5 mg PO BEDTIME 02/28/18 [History] Acetaminophen [Tylenol] 650 mg PO Q4H PRN 01/27/20 [History] Furosemide 20 mg PO ASDIRECTED 01/27/20 [History] tiZANidine [Zanaflex] 2 mg PO DAILY PRN 01/27/20 [History] traZODone HCl [Trazodone HCl] 50 mg PO BEDTIME PRN 01/27/20 [History] Carboxymethylcellulose Sodium [Refresh Tears] 1 drop EYEBOTH DAILY 03/16/20 [ History] Sennosides/Docusate Sodium [Senna-S Laxative Tablet] 1 each PO BEDTIME 03/16/20 [History] Warfarin [Coumadin] 1 mg PO ASDIRECTED 03/16/20 [History] oxyCODONE 5 mg PO BID PRN 03/16/20 [History] polyethylene glycoL 3350 [MiraLAX] 17 g PO DAILY PRN 03/16/20 [History] Magnesium Hydroxide [Milk of Magnesia] 30 ml PO DAILY PRN 03/29/20 [History] Past Medical History HEENT History: Reports: Cataract, Hard of Hearing, Impaired Vision Cardiovascular History: Reports: Afib, Arrhythmia, Blood Clots/VTE/DVT, Bypass, Heart Murmur, High Cholesterol, Hypertension, [place], Prior Cardiac Arrest Respiratory History: Reports: Pneumonia, Recurrent Gastrointestinal History: Reports: Chronic Constipation, Hemorrhoids Genitourinary History: Reports: None Musculoskeletal History: Reports: Arthritis, Back Pain, Chronic, Gout Other Musculoskeletal History: 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 Neurological History: Reports: CVA Psychiatric History: Reports: Depression, Mood Swings Endocrine/Metabolic History: Reports: Diabetes, Type II Hematologic History: Reports: Anticoagulation Therapy Oncologic (Cancer) History: Reports: None - Infectious Disease History Infectious Disease History: Reports: None - Past Surgical History HEENT Surgical History: Reports: Cataract Surgery Cardiovascular Surgical History: Reports: Coronary Artery Bypass GI Surgical History: Reports: Appendectomy, Colonoscopy, Other (See Below) Male Surgical History: Reports: Vasectomy Neurological Surgical History: Reports: Lumbar Spine, Spinal Fusion, Other (See Below) Social & Family History - Family History Family Medical History: Noncontributory Oncologic: Reports: Brain, Renal - Tobacco Use Smoking Status *Q: Unknown Ever Smoked - Caffeine Use Caffeine Use: Reports: Coffee, Soda - Living Situation & Occupation Living situation: Reports: Occupation: Retired H&P Review of Systems - Review of Systems: Review Of Systems: See Below General: Reports: Chills, Malaise, Weakness, Fatigue. Denies: Decreased Appetite HEENT: Reports: Hearing Changes (chronic hard of hearing). Denies: Ear Pain, Eye Pain, Headaches Pulmonary: Reports: Cough. Denies: Shortness of Breath, Wheezing, Pleuritic Chest Pain Cardiovascular: Reports: Edema. Denies: Chest Pain, Lightheadedness Gastrointestinal: Reports: Constipation. Denies: Abdominal Pain, Black Stool, Bloody Stool, Diarrhea, Hematemesis, Hematochezia, Melena, Nausea, Vomiting Genitourinary: Denies: Dysuria, Burning, Pain Musculoskeletal: Reports: Neck Pain, Shoulder Pain, Back Pain, Hand Pain, Joint Pain, Muscle Pain, Muscle Stiffness Skin: Denies: Jaundice, Rash, Wound Psychiatric: Reports: Confusion, Anxiety, Agitation. Denies: Depression Neurological: Denies: Dizziness, Headache, Numbness, Tingling Exam - Exam Exam: See Below - Vital Signs Vital Signs: Last Vital Signs Temp 36.4 C 03/30/20 11:00 Pulse 95 03/30/20 11:00 Resp 20 03/30/20 11:00 BP 142/76 H 03/30/20 11:00 Pulse Ox 99 03/30/20 11:00 Weight: 81.556 kg - Exam Physical Exam Comments:: GENERAL: Well-appearing elderly white male sitting in bedside chair in no acute distress. HEENT: Normocephalic, atraumatic. Conjunctiva clear. Nares patent without discharge. Mucous membranes moist, posterior pharynx unremarkable. NECK: Supple, no masses. CV: Irregularly irregular, no murmurs, rubs, or gallops. 2+ radial pulses. PULMONARY: Normal effort, clear to auscultation bilaterally mildly diminished in bases bilaterally, no wheezes, rales, or rhonchi. ABDOMEN: Positive bowel sounds, soft, nontender, nondistended. EXTREMITIES: 1+ edema of bilateral ankles, no cyanosis or clubbing. MUSCULOSKELETAL: R wrist with edema most prominent overlying MCP joint extending more diffusely with generalized tenderness to palpation of all hand/ wrist joints. Elbow exam unremarkable. NEUROLOGICAL: No obvious deficits. DERMATOLOGIC: No rashes or suspicious lesions in exposed areas. PSYCHIATRIC: Alert, interactive, appropriate affect. - Patient Data Lab Results Last 24 hrs: Laboratory Results - last 24 hr 03/29/20 03/29/20 03/29/20 Range/Units 21:07 21:08 21:25 WBC 9.16 (5.00-10.00) 10^3/uL RBC 4.41 L (4.50-6.00) 10^6/uL Hgb 12.0 L D (13.0-17.0) g/dL Hct 36.7 L (40.0-52.0) % MCV 83.2 (82.0-92.0) fL MCH 27.2 (27.0-31.0) pg MCHC 32.7 (32.0-36.0) g/dL RDW 14.5 (11.5-14.5) % Plt Count 281 D (150-400) 10^3/uL MPV 10.3 (7.4-10.4) fL Immature Gran % (Auto) 0.3 (0.0-5.0) % Neut % (Auto) 78.5 H (50.0-70.0) % Lymph % (Auto) 11.5 L (20.0-40.0) % [place] % (Auto) 9.5 H (2.0-8.0) % Eos % (Auto) 0.0 L (1.0-3.0) % Baso % (Auto) 0.2 (0.0-1.0) % Neut # (Auto) 7.19 H (2.50-7.00) 10^3/uL Lymph # (Auto) 1.05 (1.00-4.00) 10^3/uL [place] # (Auto) 0.87 H (0.10-0.80) 10^3/uL Eos # (Auto) 0.00 L (0.10-0.30) 10^3/uL Baso # (Auto) 0.02 (0.00-0.10) 10^3/uL Immature Gran # (Auto) 0.03 (0.00-0.50) 10^3/uL PT (8.9-11.4) SEC INR (0.9-1.1) APTT (23.1-31.3) SEC Sodium (136-145) mmol/L Potassium (3.3-5.3) mmol/L Chloride (98-115) mmol/L Carbon Dioxide (21.0-32.0) mmol/L Anion Gap (5-15) mmol/L BUN (6-25) mg/dL Creatinine (0.51-1.17) mg/dL Est Cr Clr Drug Dosing mL/min Estimated GFR (MDRD) mL/min Glucose (75 - 99) mg/dL POC Glucose (74-106) mg/dl Lactic Acid (0.4-2.0) mmol/L Calcium (8.7-10.3) mg/dL Total Bilirubin (0.2-1.0) mg/dL AST (15-37) U/L ALT (12-78) U/L Alkaline Phosphatase (46-116) IU/L Creatine Kinase (26-276) U/L CK-MB (CK-2) (0.00-4.30) ng/mL Troponin I (0.00-0.070) ng/mL Total Protein (6.4-8.2) g/dL Albumin (3.00-4.80) g/dL Specimen Type Urinvoid Urine Color Yellow (YELLOW) Urine Appearance Slightly cloudy H (CLEAR) Urine pH 5.0 (5.0-9.0) Ur Specific [place] 1.025 (1.005-1.030) Urine Protein Trace H (NEGATIVE) mg/dL Urine Glucose (UA) Negative (NEGATIVE) mg/dL Urine Ketones Negative (NEGATIVE) mg/dL Urine Occult Blood Trace-intact H (NEGATIVE) Urine Nitrite Negative (NEGATIVE) Urine Bilirubin Negative (NEGATIVE) Urine Urobilinogen 0.2 (0.2-1.0) E.U./dL Ur Leukocyte Esterase Negative (NEGATIVE) U Hyaline Cast (Auto) Moderate Urine RBC 5-10 H (0-5) /HPF Urine WBC 5-10 H (0-5) /HPF Ur Epithelial Cells Few /LPF Urine Bacteria Moderate H (NONE TO FEW) /HPF Urine Mucus Moderate H (NEGATIVE) /LPF SARS-CoV-2 RNA (RT-PCR) Negative (NEGATIVE) 03/29/20 03/29/20 03/29/20 Range/Units 21:25 21:25 21:25 WBC (5.00-10.00) 10^3/uL RBC (4.50-6.00) 10^6/uL Hgb (13.0-17.0) g/dL Hct (40.0-52.0) % MCV (82.0-92.0) fL MCH (27.0-31.0) pg MCHC (32.0-36.0) g/dL RDW (11.5-14.5) % Plt Count (150-400) 10^3/uL MPV (7.4-10.4) fL Immature Gran % (Auto) (0.0-5.0) % Neut % (Auto) (50.0-70.0) % Lymph % (Auto) (20.0-40.0) % [place] % (Auto) (2.0-8.0) % Eos % (Auto) (1.0-3.0) % Baso % (Auto) (0.0-1.0) % Neut # (Auto) (2.50-7.00) 10^3/uL Lymph # (Auto) (1.00-4.00) 10^3/uL [place] # (Auto) (0.10-0.80) 10^3/uL Eos # (Auto) (0.10-0.30) 10^3/uL Baso # (Auto) (0.00-0.10) 10^3/uL Immature Gran # (Auto) (0.00-0.50) 10^3/uL PT (8.9-11.4) SEC INR (0.9-1.1) APTT (23.1-31.3) SEC Sodium 134 L (136-145) mmol/L Potassium 4.2 (3.3-5.3) mmol/L Chloride 97 L (98-115) mmol/L Carbon Dioxide 23.6 (21.0-32.0) mmol/L Anion Gap 17.6 H (5-15) mmol/L BUN 23 (6-25) mg/dL Creatinine 1.03 (0.51-1.17) mg/dL Est Cr Clr Drug Dosing 58.60 mL/min Estimated GFR (MDRD) > 60 mL/min Glucose 299 H (75 - 99) mg/dL POC Glucose (74-106) mg/dl Lactic Acid 3.6 H (0.4-2.0) mmol/L Calcium 8.5 L (8.7-10.3) mg/dL Total Bilirubin 0.3 (0.2-1.0) mg/dL AST 28 (15-37) U/L ALT 29 (12-78) U/L Alkaline Phosphatase 75 (46-116) IU/L Creatine Kinase 14 L (26-276) U/L CK-MB (CK-2) < 0.50 (0.00-4.30) ng/mL Troponin I 0.06 (0.00-0.070) ng/mL Total Protein 6.0 L (6.4-8.2) g/dL Albumin 2.23 L (3.00-4.80) g/dL Specimen Type Urine Color (YELLOW) Urine Appearance (CLEAR) Urine pH (5.0-9.0) Ur Specific [place] (1.005-1.030) Urine Protein (NEGATIVE) mg/dL Urine Glucose (UA) (NEGATIVE) mg/dL Urine Ketones (NEGATIVE) mg/dL Urine Occult Blood (NEGATIVE) Urine Nitrite (NEGATIVE) Urine Bilirubin (NEGATIVE) Urine Urobilinogen (0.2-1.0) E.U./dL Ur Leukocyte Esterase (NEGATIVE) U Hyaline Cast (Auto) Urine RBC (0-5) /HPF Urine WBC (0-5) /HPF Ur Epithelial Cells /LPF Urine Bacteria (NONE TO FEW) /HPF Urine Mucus (NEGATIVE) /LPF SARS-CoV-2 RNA (RT-PCR) (NEGATIVE) 03/29/20 03/30/20 03/30/20 Range/Units 21:25 02:20 06:30 WBC 14.21 H (5.00-10.00) 10^3/uL RBC 2.49 L (4.50-6.00) 10^6/uL Hgb 6.9 L* D (13.0-17.0) g/dL Hct 21.1 L (40.0-52.0) % MCV 84.7 (82.0-92.0) fL MCH 27.7 (27.0-31.0) pg MCHC 32.7 (32.0-36.0) g/dL RDW 14.7 H (11.5-14.5) % Plt Count 358 D (150-400) 10^3/uL MPV 10.3 (7.4-10.4) fL Immature Gran % (Auto) 0.5 (0.0-5.0) % Neut % (Auto) 72.8 H (50.0-70.0) % Lymph % (Auto) 16.5 L (20.0-40.0) % [place] % (Auto) 10.1 H (2.0-8.0) % Eos % (Auto) 0.0 L (1.0-3.0) % Baso % (Auto) 0.1 (0.0-1.0) % Neut # (Auto) 10.35 H (2.50-7.00) 10^3/uL Lymph # (Auto) 2.34 (1.00-4.00) 10^3/uL [place] # (Auto) 1.44 H (0.10-0.80) 10^3/uL Eos # (Auto) 0.00 L (0.10-0.30) 10^3/uL Baso # (Auto) 0.01 (0.00-0.10) 10^3/uL Immature Gran # (Auto) 0.07 (0.00-0.50) 10^3/uL PT 12.0 H D (8.9-11.4) SEC INR 1.2 H (0.9-1.1) APTT 32.0 H (23.1-31.3) SEC Sodium (136-145) mmol/L Potassium (3.3-5.3) mmol/L Chloride (98-115) mmol/L Carbon Dioxide (21.0-32.0) mmol/L Anion Gap (5-15) mmol/L BUN (6-25) mg/dL Creatinine (0.51-1.17) mg/dL Est Cr Clr Drug Dosing mL/min Estimated GFR (MDRD) mL/min Glucose (75 - 99) mg/dL POC Glucose (74-106) mg/dl Lactic Acid 2.0 (0.4-2.0) mmol/L Calcium (8.7-10.3) mg/dL Total Bilirubin (0.2-1.0) mg/dL AST (15-37) U/L ALT (12-78) U/L Alkaline Phosphatase (46-116) IU/L Creatine Kinase (26-276) U/L CK-MB (CK-2) (0.00-4.30) ng/mL Troponin I (0.00-0.070) ng/mL Total Protein (6.4-8.2) g/dL Albumin (3.00-4.80) g/dL Specimen Type Urine Color (YELLOW) Urine Appearance (CLEAR) Urine pH (5.0-9.0) Ur Specific [place] (1.005-1.030) Urine Protein (NEGATIVE) mg/dL Urine Glucose (UA) (NEGATIVE) mg/dL Urine Ketones (NEGATIVE) mg/dL Urine Occult Blood (NEGATIVE) Urine Nitrite (NEGATIVE) Urine Bilirubin (NEGATIVE) Urine Urobilinogen (0.2-1.0) E.U./dL Ur Leukocyte Esterase (NEGATIVE) U Hyaline Cast (Auto) Urine RBC (0-5) /HPF Urine WBC (0-5) /HPF Ur Epithelial Cells /LPF Urine Bacteria (NONE TO FEW) /HPF Urine Mucus (NEGATIVE) /LPF SARS-CoV-2 RNA (RT-PCR) (NEGATIVE) 03/30/20 03/30/20 03/30/20 Range/Units 06:30 06:30 07:40 WBC (5.00-10.00) 10^3/uL RBC (4.50-6.00) 10^6/uL Hgb (13.0-17.0) g/dL Hct (40.0-52.0) % MCV (82.0-92.0) fL MCH (27.0-31.0) pg MCHC (32.0-36.0) g/dL RDW (11.5-14.5) % Plt Count (150-400) 10^3/uL MPV (7.4-10.4) fL Immature Gran % (Auto) (0.0-5.0) % Neut % (Auto) (50.0-70.0) % Lymph % (Auto) (20.0-40.0) % [place] % (Auto) (2.0-8.0) % Eos % (Auto) (1.0-3.0) % Baso % (Auto) (0.0-1.0) % Neut # (Auto) (2.50-7.00) 10^3/uL Lymph # (Auto) (1.00-4.00) 10^3/uL [place] # (Auto) (0.10-0.80) 10^3/uL Eos # (Auto) (0.10-0.30) 10^3/uL Baso # (Auto) (0.00-0.10) 10^3/uL Immature Gran # (Auto) (0.00-0.50) 10^3/uL PT (8.9-11.4) SEC INR (0.9-1.1) APTT (23.1-31.3) SEC Sodium 140 (136-145) mmol/L Potassium 4.0 (3.3-5.3) mmol/L Chloride 102 (98-115) mmol/L Carbon Dioxide 26.4 (21.0-32.0) mmol/L Anion Gap 15.6 H (5-15) mmol/L BUN 20 (6-25) mg/dL Creatinine 0.94 (0.51-1.17) mg/dL Est Cr Clr Drug Dosing 64.21 mL/min Estimated GFR (MDRD) > 60 mL/min Glucose 184 H (75 - 99) mg/dL POC Glucose 184 H (74-106) mg/dl Lactic Acid 1.8 (0.4-2.0) mmol/L Calcium 8.2 L (8.7-10.3) mg/dL Total Bilirubin (0.2-1.0) mg/dL AST (15-37) U/L ALT (12-78) U/L Alkaline Phosphatase (46-116) IU/L Creatine Kinase (26-276) U/L CK-MB (CK-2) (0.00-4.30) ng/mL Troponin I (0.00-0.070) ng/mL Total Protein (6.4-8.2) g/dL Albumin (3.00-4.80) g/dL Specimen Type Urine Color (YELLOW) Urine Appearance (CLEAR) Urine pH (5.0-9.0) Ur Specific [place] (1.005-1.030) Urine Protein (NEGATIVE) mg/dL Urine Glucose (UA) (NEGATIVE) mg/dL Urine Ketones (NEGATIVE) mg/dL Urine Occult Blood (NEGATIVE) Urine Nitrite (NEGATIVE) Urine Bilirubin (NEGATIVE) Urine Urobilinogen (0.2-1.0) E.U./dL Ur Leukocyte Esterase (NEGATIVE) U Hyaline Cast (Auto) Urine RBC (0-5) /HPF Urine WBC (0-5) /HPF Ur Epithelial Cells /LPF Urine Bacteria (NONE TO FEW) /HPF Urine Mucus (NEGATIVE) /LPF SARS-CoV-2 RNA (RT-PCR) (NEGATIVE) 03/30/20 Range/Units 10:45 WBC (5.00-10.00) 10^3/uL RBC (4.50-6.00) 10^6/uL Hgb 7.6 L (13.0-17.0) g/dL Hct 23.7 L (40.0-52.0) % MCV (82.0-92.0) fL MCH (27.0-31.0) pg MCHC (32.0-36.0) g/dL RDW (11.5-14.5) % Plt Count (150-400) 10^3/uL MPV (7.4-10.4) fL Immature Gran % (Auto) (0.0-5.0) % Neut % (Auto) (50.0-70.0) % Lymph % (Auto) (20.0-40.0) % [place] % (Auto) (2.0-8.0) % Eos % (Auto) (1.0-3.0) % Baso % (Auto) (0.0-1.0) % Neut # (Auto) (2.50-7.00) 10^3/uL Lymph # (Auto) (1.00-4.00) 10^3/uL [place] # (Auto) (0.10-0.80) 10^3/uL Eos # (Auto) (0.10-0.30) 10^3/uL Baso # (Auto) (0.00-0.10) 10^3/uL Immature Gran # (Auto) (0.00-0.50) 10^3/uL PT (8.9-11.4) SEC INR (0.9-1.1) APTT (23.1-31.3) SEC Sodium (136-145) mmol/L Potassium (3.3-5.3) mmol/L Chloride (98-115) mmol/L Carbon Dioxide (21.0-32.0) mmol/L Anion Gap (5-15) mmol/L BUN (6-25) mg/dL Creatinine (0.51-1.17) mg/dL Est Cr Clr Drug Dosing mL/min Estimated GFR (MDRD) mL/min Glucose (75 - 99) mg/dL POC Glucose (74-106) mg/dl Lactic Acid (0.4-2.0) mmol/L Calcium (8.7-10.3) mg/dL Total Bilirubin (0.2-1.0) mg/dL AST (15-37) U/L ALT (12-78) U/L Alkaline Phosphatase (46-116) IU/L Creatine Kinase (26-276) U/L CK-MB (CK-2) (0.00-4.30) ng/mL Troponin I (0.00-0.070) ng/mL Total Protein (6.4-8.2) g/dL Albumin (3.00-4.80) g/dL Specimen Type Urine Color (YELLOW) Urine Appearance (CLEAR) Urine pH (5.0-9.0) Ur Specific [place] (1.005-1.030) Urine Protein (NEGATIVE) mg/dL Urine Glucose (UA) (NEGATIVE) mg/dL Urine Ketones (NEGATIVE) mg/dL Urine Occult Blood (NEGATIVE) Urine Nitrite (NEGATIVE) Urine Bilirubin (NEGATIVE) Urine Urobilinogen (0.2-1.0) E.U./dL Ur Leukocyte Esterase (NEGATIVE) U Hyaline Cast (Auto) Urine RBC (0-5) /HPF Urine WBC (0-5) /HPF Ur Epithelial Cells /LPF Urine Bacteria (NONE TO FEW) /HPF Urine Mucus (NEGATIVE) /LPF SARS-CoV-2 RNA (RT-PCR) (NEGATIVE) Result Diagrams: 03/30/20 20:51 03/30/20 06:30 Jorge Results Last 24 hrs: Microbiology 03/29/20 21:08 Influenza Type A Antigen Screen - Final Nasal, Unspecified NEGATIVE INFLUENZA A VIRUS AG REFERENCE RANGE: NEGATIVE Influenza Type B Antigen Screen - Final NEGATIVE INFLUENZA B VIRUS AG REFERENCE RANGE: NEGATIVE Sepsis Event Note - Evaluation Sepsis Screening Result: No Definite Risk - Focused Exam Vital Signs: Vital Signs Temp Temp Pulse Pulse Resp BP BP 03/30/20 11:00 36.4 C 95 20 142/76 H 03/30/20 10:00 76 03/30/20 09:58 03/30/20 06:09 36.6 C 77 18 126/64 03/30/20 02:25 36.4 C 88 18 120/58 L Pulse Ox Pulse Ox 03/30/20 11:00 99 03/30/20 10:00 03/30/20 09:58 96 03/30/20 06:09 98 03/30/20 02:25 97 Date Exam was Performed: 03/31/20 Time Exam was Performed: 00:19 Problem List Initiated/Reviewed/Updated: Yes Orders Last 24hrs: Active Orders 24 hr Category Date Time Status Patient Status [ADT] Routine ADT 03/29/20 23:00 Active Antiembolic Devices [RC] PER UNIT ROUTINE Care 03/30/20 11:16 Active Blood Glucose Check, Bedside [RC] 0730,1130,1730,2100 Care 03/29/20 22:59 Active Cardiac Monitoring [RC] 0300,0700,1100,1500,1900,2300 Care 03/29/20 23:00 Active Intake and Output [RC] 1400,2200,0600 Care 03/30/20 06:18 Active Oxygen Therapy [RC] .PRN Care 03/29/20 23:00 Active Pulse Oximetry [RC] .PRN Care 03/29/20 23:00 Active Vital Signs [RC] 0300,0700,1100,1500,1900,2300 Care 03/29/20 23:00 Active [place] [employer] Diet [DIET] Diet 03/30/20 Breakfast Active Wrist 2V Rt [CR] Routine Exams 03/30/20 11:11 Stop Req Wrist Comp Min 3V Rt [CR] Routine Exams 03/30/20 11:20 Ordered BASIC METABOLIC PANEL,BMP [CHEM] AM Lab 03/31/20 05:11 Ordered CBC W/O DIFF,HEMOGRAM [HEME] Timed Lab 03/30/20 16:00 Ordered CBC WITH AUTO DIFF [HEME] AM Lab 03/31/20 05:11 Ordered CULTURE BLOOD [BC] Stat Lab 03/29/20 21:25 Received CULTURE SPUTUM + SMEAR [RM] Stat Lab 03/29/20 22:59 Ordered CULTURE URINE [RM] Routine Lab 03/30/20 06:20 Ordered INR,PT,PROTHROMBIN TIME [COAG] Routine Lab 03/30/20 10:45 Received OCCULT BLOOD DIAGNOSTIC [OP] Routine Lab 03/30/20 11:11 Ordered PROCALCITONIN [REF] Routine Lab 03/30/20 06:30 Received RED BLOOD CELLS LP [BBK] Routine Lab 03/30/20 11:11 Ordered TYPE AND SCREEN [BBK] Routine Lab 03/30/20 11:11 Ordered URIC ACID [CHEM] Routine Lab 03/30/20 10:35 Received VANCOMYCIN TROUGH [CHEM] Timed Lab 03/31/20 20:30 Ordered Acetaminophen [Tylenol] Med 03/29/20 22:59 Active 650 mg PO Q4H PRN Carboxymethylcellulose Sodium [Refresh Tears 0.5%] Med 03/30/20 09:00 Active 0 ml EYEBOTH DAILY Docusate Sodium/Sennosides [Senna Plus] Med 03/30/20 21:00 Active 1 tab PO BEDTIME Famotidine [Pepcid] Med 03/30/20 09:00 Active 20 mg PO DAILY Folic Acid Med 03/30/20 09:00 Active 1 mg PO DAILY Insulin Aspart [NovoLOG] Med 03/30/20 08:00 Active See Protocol SUBCUT WITHMEALSANDBED Metoprolol Succinate [Toprol XL] Med 03/30/20 11:30 Active 25 mg PO DAILY Mirtazapine [Remeron] Med 03/30/20 21:00 Active 7.5 mg PO BEDTIME Pantoprazole [ProTONIX IV] Med 03/30/20 11:15 Active 40 mg IVPUSH Q12H Pharmacy to Dose - Vancomycin Med 03/30/20 06:15 Pending 1 dose .XX ASDIRECTED Pharmacy to Dose - Warfarin Med 03/30/20 06:30 Pending 1 dose .XX ASDIRECTED Piperacillin/Tazobactam/Dext [Zosyn in Dextrose Iso- Med 03/30/20 05:00 Active Osmotic 3.375 GM] 3.375 gm Premix Bag 1 bag IV Q6H Sertraline [Zoloft] Med 03/30/20 09:00 Active 100 mg PO DAILY Simvastatin [Zocor] Med 03/30/20 21:00 Active 20 mg PO BEDTIME Sodium Chloride 0.9% [Normal Saline] 1,000 ml Med 03/29/20 23:00 Active IV ASDIRECTED Sodium Chloride 0.9% [Saline Flush] Med 03/29/20 22:59 Active 10 ml FLUSH Q8HR PRN Vancomycin 1.25 gm Med 03/30/20 21:00 Active Sodium Chloride 0.9% [Normal Saline] 250 ml IV Q24H oxyCODONE Med 03/30/20 09:00 Active 10 mg PO BID oxyCODONE Med 03/30/20 06:16 Active 5 mg PO BID PRN polyethylene glycoL 3350 [MiraLAX] Med 03/30/20 10:04 Active 17 gm PO DAILY PRN tiZANidine [Zanaflex] Med 03/30/20 06:16 Active 2 mg PO DAILY PRN traZODone Med 03/30/20 06:16 Active 50 mg PO BEDTIME PRN Blood Culture x2 Reflex Set [OM.PC] Stat Oth 03/29/20 21:07 Ordered Isolation [COMM] Routine Oth 03/29/20 21:09 Ordered Peripheral IV Insertion Adult [OM.PC] Routine Oth 03/29/20 22:59 Ordered SCD [Sequential Compression Device] [OM.PC] Routine Oth 03/30/20 11:16 Ordered Saline Lock Insert [OM.PC] Stat Ot 03/29/20 21:07 Ordered Severe Sepsis Onset Time [OM.PC] Stat Ot 03/29/20 21:07 Ordered Transfuse Red Blood Cells [COMM] Routine Oth 03/30/20 11:11 Ordered Resuscitation Status Routine Resus Stat 03/29/20 22:59 Ordered Medication Orders Acetaminophen (Tylenol) 650 mg PO Q4H PRN PRN Reason: Pain (Mild 1-3)/fever Artificial Tears (Refresh Tears 0.5%) 0 ml EYEBOTH DAILY [facility] Last Admin: 03/30/20 08:19 Dose: 1 drop Famotidine (Pepcid) 20 mg PO DAILY [facility] Last Admin: 03/30/20 08:21 Dose: 20 mg Folic Acid (Folic Acid) 1 mg PO DAILY [facility] Last Admin: 03/30/20 08:20 Dose: 1 mg Sodium Chloride (Normal Saline) 1,000 mls @ 100 mls/hr IV ASDIRECTED [facility] Last Admin: 03/29/20 23:00 Dose: 100 mls/hr Piperacillin/Tazobactam/ (Dextrose 3.375 gm/ Premix) 50 mls @ 100 mls/hr IV Q6H [facility] Last Admin: 03/30/20 11:03 Dose: 100 mls/hr Infusion: 03/30/20 05:21 Dose: 100 mls/hr Admin: 03/30/20 04:51 Dose: 100 mls/hr Vancomycin HCl 1.25 gm/ Sodium (Chloride) 250 mls @ 166.667 mls/hr IV Q24H [facility] Insulin Aspart (Novolog) 0 unit SUBCUT WITHMEALSANDBED [facility]; Protocol Last Admin: 03/30/20 08:01 Dose: 1 unit Metoprolol Succinate (Toprol Xl) 25 mg PO DAILY [facility] Mirtazapine (Remeron) 7.5 mg PO BEDTIME [facility] Oxycodone HCl (Oxycodone) 5 mg PO BID PRN PRN Reason: Pain Oxycodone HCl (Oxycodone) 10 mg PO BID [facility] Last Admin: 03/30/20 08:20 Dose: 10 mg Pantoprazole Sodium (Protonix Iv) 40 mg IVPUSH Q12H [facility] Polyethylene Glycol (Miralax) 17 gm PO DAILY PRN PRN Reason: Constipation Senna/Docusate Sodium (Senna Plus) 1 tab PO BEDTIME [facility] Sertraline HCl (Zoloft) 100 mg PO DAILY [facility] Last Admin: 03/30/20 08:21 Dose: 100 mg Simvastatin (Zocor) 20 mg PO BEDTIME [facility] Sodium Chloride (Saline Flush) 10 ml FLUSH Q8HR PRN PRN Reason: keep vein open Tizanidine HCl (Zanaflex) 2 mg PO DAILY PRN PRN Reason: Other Trazodone HCl (Trazodone) 50 mg PO BEDTIME PRN PRN Reason: Sleep Vancomycin HCl (Pharmacy To Dose - Vancomycin) 1 dose .XX ASDIRECTED [facility] Warfarin Sodium (Pharmacy To Dose - Warfarin) 1 dose .XX ASDIRECTED [facility] Assessment/Plan Comment:: HPI summary: Mr. Ernst is an 84yoM with a history notable for CAD, atrial fibrillation, DMT2, and recurrent falls recently admitted [facility] who complained of increased weakness and was noted to have temperature of 100.9. He was transferred to the ED via EMS. No other notable symptoms were noted on initial presentation. Notable ED findings and management: VS T 38.2, P 92, R 22, BP 100/47 WBC 9.16, neutrophils 78.5 Anion gap 17.6 Lactic acid 3.6 INR 1.2 COVID negative EKG atrial fibrillation without notable ST changes CXR bibasilar infiltrates NS 1L bolus Zosyn 3.375g Vancomycin 1g Hospital course: 03/30: Afebrile since admission. VS normalized. Respiratory status reassuring. WBC increased. Hgb dropped, see more detailed discussion below. Lactic acidosis resolved. R wrist swollen with patient reported onset >1 week ago with fall and recent improvement, but no prior wrist XR noted. Hospitalization problems and plan: # Severe sepsis, now resolved # Lactic acidosis, now resolved # Pneumonia, bibasilar # Hyponatremia, now resolved - Continue telemetry and VS q4h for close monitoring - Continue NS @ 100cc/hr - Continue Zosyn and vancomycin - Repeat CBC and BMP in AM - Await procalcitonin, blood cultures, and sputum culture # Anemia: Initial hgb on admission 12, downtrended to 6.9 less than 9hrs later without other cell line decreases suggesting dilutional effect or evidence of bleeding. Confirmatory repeat hgb 7.6. - Transfuse 1un PRBCs given hx of CAD and confirmatory hgb <8 - Change outpatient famotidine 20mg to pantoprazole 40mg BID - Repeat CBC 2hrs post transfusion and in AM - FOBT - Monitor for evidence of bleeding # R wrist edema and pain # Hx recurrent falls - Wrist XR - Uric acid # Constipation: No BM reported for 5 days. Abdominal exam unremarkable. - Magnesium citrate 240mL and Fleet enema now - Continue outpatient Senna-docusate and PEG prn. # Subtherapeutic INR - Warfarin per pharmacy, with cautious reinitiation while awaiting above anemia workup Chronic, stable conditions: # CAD with hx CABG / Atrial fibrillation: Continue metoprolol succinate 25mg. Anticoagulation, as above. # HTN: Holding lisinopril 20mg, HCTZ 25mg, and furosemide 20mg in setting of severe sepsis. # GERD: Changed outpatient famotidine 20mg to PPI, as above. # DMT2: A1cs consistently in the high 6s, with last 6.7 10/2019. Low dose insulin sliding scale while in hospital, while holding outpatient metformin. # HLD: Continue simvastatin 20mg. # Chronic back pain: Continue oxycodone 10mg BID and 5mg prn, Tylenol prn, tizanidine prn. # Anxiety / Insomnia: Continue sertraline 100mg, mirtazapine 7.5mg, trazodone 50mg prn. Hospitalization details: # FEN: NS @ 100cc/hr. Electrolytes normal. Heart healthy diet. # PPX: Reinitiate warfarin, as above; hold additional pharmacologic DVT ppx given current significant anemia. # Code status: FULL. # Emergency contact: , who will be updated by nursing staff following rounds. # Disposition: Admit to inpatient status. Anticipate at least 2 night stay with eventual discharge back to SNF.
[2020-03-30] MEDS: Pantoprazole 40 MG Vial IVPUSH SCH ×2 (12:20→23:04)
[2020-03-30] MEDS: Sodium Chloride 0.9% 1,000 ML IV SCH (12:22)
[2020-03-30] MEDS: Metoprolol Succinate 25 MG Tab.ER PO SCH (12:35)
--- NOTE | 2020-03-30 12:40 | CR ---
[id number] RAD/RAD Wrist Right 3V Min EXAM: RAD Wrist Right 3V Min CLINICAL DATA: PAIN AND SWELLING COMPARISON: CORRELATION IS MADE WITH MARCH 16, 2020 FINDINGS: There are [id number] changes of osteoarthritis The bones are osteopenic. IMPRESSION: MILD TO MODERATE CHANGES OF OSTEOARTHRITIS Ken Simpson MD 03/30/20 [id number] Thank you for allowing us to participate in the care of your patient.
[2020-03-30] MEDS ORDERED: Acetaminophen 325 MG Tab PO ONE (14:18)
[2020-03-30] MEDS ORDERED: Warfarin 2 MG Tab PO ONE (18:00)
[2020-03-30] MEDS: Mirtazapine 15 MG Tab PO SCH (20:38)
[2020-03-30] MEDS: Simvastatin 20 MG Tab PO SCH (20:39)
[2020-03-31] MEDS: Sodium Chloride 0.9% 1,000 ML IV SCH ×2 (02:56→19:48)
[2020-03-31] MEDS: Piperacillin/Tazobactam/Dext 3.375 GM in Premix Bag 1 BAG IV SCH ×3 (05:08→18:23)
[2020-03-31 07:50] LABS: ANION GAP 28.4 mmol/L (5-15); CHLORIDE,CL 99 mmol/L (98-115); SODIUM,NA 150 mmol/L (136-145)
[2020-03-31] MEDS: Insulin Aspart 100 Units/ML 3 ML Pen SUBCUT SCH ×4 (08:05→21:12)
[2020-03-31] MEDS: Famotidine 20 MG Tab PO SCH (08:07)
[2020-03-31] MEDS: Folic Acid 1 MG Tab PO SCH (08:07)
[2020-03-31] MEDS: Sertraline 50 MG Tab PO SCH (08:07)
[2020-03-31] MEDS: Metoprolol Succinate 25 MG Tab.ER PO SCH (08:07)
[2020-03-31] MEDS: oxyCODONE 5 MG Tab PO SCH ×2 (08:08→21:07)
[2020-03-31] MEDS: Carboxymethylcellulose Sodium 0.5% Ophth Soln 15 ML Bottle EYEBOTH SCH (08:10)
[2020-03-31] MEDS: Pantoprazole 40 MG Vial IVPUSH SCH (11:44)
[2020-03-31] MEDS ORDERED: Acetaminophen 500 MG Tab PO ONE (11:53)
--- NOTE | 2020-03-31 12:01 | PCM.PN ---
- General Info Date of Service: 03/31/20 Subjective Update: Mr. Ernst reports no current chest pain. He is a poor historian, however he reports he is concerned about where his is, but reorients with prompting easily. He denies dyspnea, angina or cough. Appetite is fair. Recently admitted to longterm care facility with . Functional Status: Reports: Pain Controlled, Tolerating Diet, Incentive Spirometry - Review of Systems General: Denies: Fever, Chills, Appetite HEENT: Reports: Glasses. Denies: Headaches, Sore Throat, Visual Changes Pulmonary: Denies: Shortness of Breath, Cough, Sputum Cardiovascular: Reports: Edema. Denies: Chest Pain, Lightheadedness Gastrointestinal: Denies: Abdominal Pain, Constipation, Diarrhea Genitourinary: Denies: Dysuria, Frequency, Urgency Musculoskeletal: Reports: Back Pain Skin: Denies: Cyanosis, Pallor, Rash Neurological: Reports: Confusion (needs reorienting). Denies: Dizziness, Headache, Change in Speech Psychiatric: Reports: Other (concerned about ). Denies: Depression - Patient Data Vitals - Most Recent: Last Vital Signs Temp 36.8 C 03/31/20 11:00 Pulse 86 03/31/20 11:00 Resp 18 03/31/20 06:56 BP 127/65 03/31/20 11:00 Pulse Ox 98 03/31/20 11:00 Weight - Most Recent: 81.556 kg I&O - Last 24 Hours: Intake & Output 03/30/20 03/31/20 03/31/20 22:59 06:59 14:59 Intake Total 1097 715 Balance 1097 715 Lab Results Last 24 Hours: Laboratory Results - last 24 hr 03/30/20 03/30/20 03/30/20 Range/Units 06:30 10:45 10:45 WBC (5.00-10.00) 10^3/uL RBC (4.50-6.00) 10^6/uL Hgb (13.0-17.0) g/dL Hct (40.0-52.0) % MCV (82.0-92.0) fL MCH (27.0-31.0) pg MCHC (32.0-36.0) g/dL RDW (11.5-14.5) % Plt Count (150-400) 10^3/uL MPV (7.4-10.4) fL Immature Gran % (Auto) (0.0-5.0) % Neut % (Auto) (50.0-70.0) % Lymph % (Auto) (20.0-40.0) % [place] % (Auto) (2.0-8.0) % Eos % (Auto) (1.0-3.0) % Baso % (Auto) (0.0-1.0) % Neut # (Auto) (2.50-7.00) 10^3/uL Lymph # (Auto) (1.00-4.00) 10^3/uL [place] # (Auto) (0.10-0.80) 10^3/uL Eos # (Auto) (0.10-0.30) 10^3/uL Baso # (Auto) (0.00-0.10) 10^3/uL Immature Gran # (Auto) (0.00-0.50) 10^3/uL PT 12.8 H (8.9-11.4) SEC INR 1.3 H (0.9-1.1) Sodium (136-145) mmol/L Potassium (3.3-5.3) mmol/L Chloride (98-115) mmol/L Carbon Dioxide (21.0-32.0) mmol/L Anion Gap (5-15) mmol/L BUN (6-25) mg/dL Creatinine (0.51-1.17) mg/dL Est Cr Clr Drug Dosing mL/min Estimated GFR (MDRD) mL/min Glucose (75 - 99) mg/dL POC Glucose (74-106) mg/dl Calcium (8.7-10.3) mg/dL Troponin I (0.00-0.070) ng/mL Procalcitonin 0.24 H (<0.10) ng/mL Blood Type A POSITIVE Gel Antibody Screen Negative Crossmatch See Detail 03/30/20 03/30/20 03/30/20 Range/Units 11:57 17:35 20:51 WBC (5.00-10.00) 10^3/uL RBC (4.50-6.00) 10^6/uL Hgb (13.0-17.0) g/dL Hct (40.0-52.0) % MCV (82.0-92.0) fL MCH (27.0-31.0) pg MCHC (32.0-36.0) g/dL RDW (11.5-14.5) % Plt Count (150-400) 10^3/uL MPV (7.4-10.4) fL Immature Gran % (Auto) (0.0-5.0) % Neut % (Auto) (50.0-70.0) % Lymph % (Auto) (20.0-40.0) % [place] % (Auto) (2.0-8.0) % Eos % (Auto) (1.0-3.0) % Baso % (Auto) (0.0-1.0) % Neut # (Auto) (2.50-7.00) 10^3/uL Lymph # (Auto) (1.00-4.00) 10^3/uL [place] # (Auto) (0.10-0.80) 10^3/uL Eos # (Auto) (0.10-0.30) 10^3/uL Baso # (Auto) (0.00-0.10) 10^3/uL Immature Gran # (Auto) (0.00-0.50) 10^3/uL PT (8.9-11.4) SEC INR (0.9-1.1) Sodium (136-145) mmol/L Potassium (3.3-5.3) mmol/L Chloride (98-115) mmol/L Carbon Dioxide (21.0-32.0) mmol/L Anion Gap (5-15) mmol/L BUN (6-25) mg/dL Creatinine (0.51-1.17) mg/dL Est Cr Clr Drug Dosing mL/min Estimated GFR (MDRD) mL/min Glucose (75 - 99) mg/dL POC Glucose 248 H 283 H (74-106) mg/dl Calcium (8.7-10.3) mg/dL Troponin I 0.05 (0.00-0.070) ng/mL Procalcitonin (<0.10) ng/mL Blood Type Gel Antibody Screen Crossmatch 03/30/20 03/30/20 03/31/20 Range/Units 20:51 21:22 07:22 WBC 16.70 H 16.80 H (5.00-10.00) 10^3/uL RBC 2.80 L 2.79 L (4.50-6.00) 10^6/uL Hgb 7.9 L 7.7 L (13.0-17.0) g/dL Hct 23.8 L 23.6 L (40.0-52.0) % MCV 85.0 84.6 (82.0-92.0) fL MCH 28.2 27.6 (27.0-31.0) pg MCHC 33.2 32.6 (32.0-36.0) g/dL RDW 14.5 14.5 (11.5-14.5) % Plt Count 366 401 H (150-400) 10^3/uL MPV 9.9 10.2 (7.4-10.4) fL Immature Gran % (Auto) 0.5 (0.0-5.0) % Neut % (Auto) 78.8 H (50.0-70.0) % Lymph % (Auto) 12.0 L (20.0-40.0) % [place] % (Auto) 8.5 H (2.0-8.0) % Eos % (Auto) 0.0 L (1.0-3.0) % Baso % (Auto) 0.2 (0.0-1.0) % Neut # (Auto) 13.24 H (2.50-7.00) 10^3/uL Lymph # (Auto) 2.01 (1.00-4.00) 10^3/uL [place] # (Auto) 1.43 H (0.10-0.80) 10^3/uL Eos # (Auto) 0.00 L (0.10-0.30) 10^3/uL Baso # (Auto) 0.03 (0.00-0.10) 10^3/uL Immature Gran # (Auto) 0.09 (0.00-0.50) 10^3/uL PT (8.9-11.4) SEC INR (0.9-1.1) Sodium (136-145) mmol/L Potassium (3.3-5.3) mmol/L Chloride (98-115) mmol/L Carbon Dioxide (21.0-32.0) mmol/L Anion Gap (5-15) mmol/L BUN (6-25) mg/dL Creatinine (0.51-1.17) mg/dL Est Cr Clr Drug Dosing mL/min Estimated GFR (MDRD) mL/min Glucose (75 - 99) mg/dL POC Glucose 238 H (74-106) mg/dl Calcium (8.7-10.3) mg/dL Troponin I (0.00-0.070) ng/mL Procalcitonin (<0.10) ng/mL Blood Type Gel Antibody Screen Crossmatch 03/31/20 03/31/20 03/31/20 Range/Units 07:22 07:22 07:31 WBC (5.00-10.00) 10^3/uL RBC (4.50-6.00) 10^6/uL Hgb (13.0-17.0) g/dL Hct (40.0-52.0) % MCV (82.0-92.0) fL MCH (27.0-31.0) pg MCHC (32.0-36.0) g/dL RDW (11.5-14.5) % Plt Count (150-400) 10^3/uL MPV (7.4-10.4) fL Immature Gran % (Auto) (0.0-5.0) % Neut % (Auto) (50.0-70.0) % Lymph % (Auto) (20.0-40.0) % [place] % (Auto) (2.0-8.0) % Eos % (Auto) (1.0-3.0) % Baso % (Auto) (0.0-1.0) % Neut # (Auto) (2.50-7.00) 10^3/uL Lymph # (Auto) (1.00-4.00) 10^3/uL [place] # (Auto) (0.10-0.80) 10^3/uL Eos # (Auto) (0.10-0.30) 10^3/uL Baso # (Auto) (0.00-0.10) 10^3/uL Immature Gran # (Auto) (0.00-0.50) 10^3/uL PT (8.9-11.4) SEC INR (0.9-1.1) Sodium 150 H D (136-145) mmol/L Potassium 4.0 (3.3-5.3) mmol/L Chloride 99 (98-115) mmol/L Carbon Dioxide 26.6 (21.0-32.0) mmol/L Anion Gap 28.4 H (5-15) mmol/L BUN 15 (6-25) mg/dL Creatinine 0.87 (0.51-1.17) mg/dL Est Cr Clr Drug Dosing 69.37 mL/min Estimated GFR (MDRD) > 60 mL/min Glucose 175 H (75 - 99) mg/dL POC Glucose 181 H (74-106) mg/dl Calcium 8.4 L (8.7-10.3) mg/dL Troponin I 0.04 (0.00-0.070) ng/mL Procalcitonin (<0.10) ng/mL Blood Type Gel Antibody Screen Crossmatch 03/31/20 Range/Units 11:50 WBC (5.00-10.00) 10^3/uL RBC (4.50-6.00) 10^6/uL Hgb (13.0-17.0) g/dL Hct (40.0-52.0) % MCV (82.0-92.0) fL MCH (27.0-31.0) pg MCHC (32.0-36.0) g/dL RDW (11.5-14.5) % Plt Count (150-400) 10^3/uL MPV (7.4-10.4) fL Immature Gran % (Auto) (0.0-5.0) % Neut % (Auto) (50.0-70.0) % Lymph % (Auto) (20.0-40.0) % [place] % (Auto) (2.0-8.0) % Eos % (Auto) (1.0-3.0) % Baso % (Auto) (0.0-1.0) % Neut # (Auto) (2.50-7.00) 10^3/uL Lymph # (Auto) (1.00-4.00) 10^3/uL [place] # (Auto) (0.10-0.80) 10^3/uL Eos # (Auto) (0.10-0.30) 10^3/uL Baso # (Auto) (0.00-0.10) 10^3/uL Immature Gran # (Auto) (0.00-0.50) 10^3/uL PT (8.9-11.4) SEC INR (0.9-1.1) Sodium (136-145) mmol/L Potassium (3.3-5.3) mmol/L Chloride (98-115) mmol/L Carbon Dioxide (21.0-32.0) mmol/L Anion Gap (5-15) mmol/L BUN (6-25) mg/dL Creatinine (0.51-1.17) mg/dL Est Cr Clr Drug Dosing mL/min Estimated GFR (MDRD) mL/min Glucose (75 - 99) mg/dL POC Glucose 232 H (74-106) mg/dl Calcium (8.7-10.3) mg/dL Troponin I (0.00-0.070) ng/mL Procalcitonin (<0.10) ng/mL Blood Type Gel Antibody Screen Crossmatch Jorge Results Last 24 Hours: Microbiology 03/29/20 21:25 Aerobic Blood Culture - Preliminary Blood - Venous NO GROWTH AFTER 1 DAY Anaerobic Blood Culture - Preliminary NO GROWTH AFTER 1 DAY 03/30/20 11:11 Stool Occult Blood (JORGE) - Final Stool / Feces NEGATIVE OCCULT BLOOD REFERENCE RANGE: NEGATIVE Med Orders - Current: Current Medications Acetaminophen (Tylenol) 650 mg PO Q4H PRN PRN Reason: Pain (Mild 1-3)/fever Artificial Tears (Refresh Tears 0.5%) 0 ml EYEBOTH DAILY [facility] Last Admin: 03/31/20 08:10 Dose: 1 drop Famotidine (Pepcid) 20 mg PO DAILY [facility] Last Admin: 03/31/20 08:07 Dose: 20 mg Folic Acid (Folic Acid) 1 mg PO DAILY [facility] Last Admin: 03/31/20 08:07 Dose: 1 mg Sodium Chloride (Normal Saline) 1,000 mls @ 100 mls/hr IV ASDIRECTED [facility] Last Admin: 03/31/20 02:56 Dose: 100 mls/hr Piperacillin/Tazobactam/ (Dextrose 3.375 gm/ Premix) 50 mls @ 100 mls/hr IV Q6H [facility] Last Admin: 03/31/20 10:47 Dose: 100 mls/hr Vancomycin HCl 1.25 gm/ Sodium (Chloride) 250 mls @ 166.667 mls/hr IV Q24H [facility] Last Admin: 03/30/20 20:36 Dose: 166.667 mls/hr Insulin Aspart (Novolog) 0 unit SUBCUT WITHMEALSANDBED [facility]; Protocol Last Admin: 03/31/20 08:05 Dose: 1 unit Metoprolol Succinate (Toprol Xl) 25 mg PO DAILY [facility] Last Admin: 03/31/20 08:07 Dose: 25 mg Mirtazapine (Remeron) 7.5 mg PO BEDTIME [facility] Last Admin: 03/30/20 20:38 Dose: 7.5 mg Oxycodone HCl (Oxycodone) 5 mg PO BID PRN PRN Reason: Pain Oxycodone HCl (Oxycodone) 10 mg PO BID [facility] Last Admin: 03/31/20 08:08 Dose: 10 mg Pantoprazole Sodium (Protonix Iv) 40 mg IVPUSH Q12H [facility] Last Admin: 03/31/20 11:44 Dose: 40 mg Polyethylene Glycol (Miralax) 17 gm PO DAILY PRN PRN Reason: Constipation Senna/Docusate Sodium (Senna Plus) 1 tab PO BEDTIME [facility] Last Admin: 03/30/20 20:38 Dose: 1 tab Sertraline HCl (Zoloft) 100 mg PO DAILY [facility] Last Admin: 03/31/20 08:07 Dose: 100 mg Simvastatin (Zocor) 20 mg PO BEDTIME [facility] Last Admin: 03/30/20 20:39 Dose: 20 mg Sodium Chloride (Saline Flush) 10 ml FLUSH Q8HR PRN PRN Reason: keep vein open Tizanidine HCl (Zanaflex) 2 mg PO DAILY PRN PRN Reason: Other Trazodone HCl (Trazodone) 50 mg PO BEDTIME PRN PRN Reason: Sleep Vancomycin HCl (Pharmacy To Dose - Vancomycin) 1 dose .XX ASDIRECTED [facility] Warfarin Sodium (Pharmacy To Dose - Warfarin) 1 dose .XX ASDIRECTED [facility] Discontinued Medications Acetaminophen (Tylenol Extra Strength) 1,000 mg PO ONETIME ONE Stop: 03/29/20 21:09 Last Admin: 05/04/20 21:55 Dose: Not Given Acetaminophen (Tylenol) 650 mg PO NOW ONE Stop: 03/30/20 14:19 Last Admin: 03/30/20 14:33 Dose: 650 mg Acetaminophen (Tylenol Extra Strength) 1,000 mg PO ONETIME ONE Stop: 03/31/20 11:54 Sodium Chloride (Normal Saline) 1,000 mls @ 500 drops/hr IV BOLUS ONE Stop: 03/31/20 03:06 Last Admin: 03/29/20 21:35 Dose: 500 drops/hr Piperacillin/Tazobactam/ (Dextrose 3.375 gm/ Premix) 50 mls @ 100 mls/hr IV ONETIME ONE Stop: 03/29/20 23:07 Last Admin: 03/29/20 23:12 Dose: 100 mls/hr Vancomycin HCl 1 gm/ Sodium (Chloride) 250 mls @ 167 mls/hr IV ONETIME ONE Stop: 03/30/20 00:07 Last Admin: 03/29/20 23:48 Dose: 167 mls/hr Magnesium Citrate (Citrate Of Magnesia) 240 ml PO ONETIME ONE Stop: 03/30/20 11:12 Last Admin: 03/30/20 12:20 Dose: 240 ml Sodium Biphosphate/Sodium Phosphate (Fleet Enema) 133 ml RECTAL ONETIME ONE Stop: 03/30/20 11:12 Last Admin: 03/30/20 13:30 Dose: 133 ml Sodium Chloride (Saline Flush) 10 ml FLUSH Q8HR PRN PRN Reason: keep vein open Warfarin Sodium (Coumadin) 2 mg PO ONETIME ONE Stop: 03/30/20 18:01 Last Admin: 03/30/20 18:04 Dose: 2 mg - Exam Physical Findings Comments:: GENERAL: Well-appearing adult lying in bed in no acute distress. HEENT: Normocephalic, atraumatic. Conjunctiva clear. Nares patent without discharge. Mucous membranes moist, posterior pharynx unremarkable. NECK: Supple, no masses. CV: Regular rate and irregular rhythm, no murmurs, rubs, or gallops. 2+ radial pulses. PULMONARY: Normal effort, clear to auscultation bilaterally, no wheezes, rales, or rhonchi. ABDOMEN: Positive bowel sounds, soft, nontender, nondistended. EXTREMITIES: 1+ LLE, no RLE edema, cyanosis, or clubbing. MUSCULOSKELETAL: Moves all extremities well. NEUROLOGICAL: No obvious deficits. DERMATOLOGIC: No rashes or suspicious lesions in exposed areas. PSYCHIATRIC: Alert, interactive, appropriate affect. Reoriented to place, but redirects well. Sepsis Event Note - Evaluation Sepsis Screening Result: No Definite Risk - Focused Exam Vital Signs: Vital Signs Temp Temp Pulse Pulse Resp BP BP 03/31/20 11:00 36.8 C 86 03/31/20 08:07 96 156/68 H 03/31/20 06:56 37.2 C 102 H 18 122/58 L 03/31/20 03:00 37.0 C 115 H 18 128/69 BP Pulse Ox 03/31/20 11:00 127/65 98 03/31/20 08:07 03/31/20 06:56 96 03/31/20 03:00 94 L Date Exam was Performed: 03/31/20 Time Exam was Performed: 20:56 - Problem List Review Problem List Initiated/Reviewed/Updated: Yes - My Orders Last 24 Hours: My Active Orders 03/31/20 11:48 Transfuse Red Blood Cells [COMM] Stat 03/31/20 11:54 Hemoccult [OCCULT BLOOD DIAGNOSTIC] [OP] Routine 03/31/20 11:56 IRON PNL (FE, TIBC, AISHA, %SAT) [REF] Routine 03/31/20 11:57 RETICULOCYTE COUNT [REF] Routine 04/01/20 11:56 Hemoccult [OCCULT BLOOD DIAGNOSTIC] [OP] Routine - Plan Plan:: HPI summary: Mr. Ernst is an 84yoM with a history notable for CAD, atrial fibrillation, DMT2, and recurrent falls recently admitted to [facility] who complained of increased weakness and was noted to have temperature of 100.9. He was transferred to the ED via EMS. No other notable symptoms were noted on initial presentation. Notable ED findings and management: VS T 38.2, P 92, R 22, BP 100/47 WBC 9.16, neutrophils 78.5 Anion gap 17.6 Lactic acid 3.6 INR 1.2 COVID negative EKG atrial fibrillation without notable ST changes CXR bibasilar infiltrates NS 1L bolus Zosyn 3.375g Vancomycin 1g Hospital course: 03/30: Afebrile since admission. VS normalized. Respiratory status reassuring. WBC increased. Hgb dropped, see more detailed discussion below. Lactic acidosis resolved. R wrist swollen with patient reported onset >1 week ago with fall and recent improvement, but no prior wrist XR noted. 03/31: Overnight nursing reported mild chest pain to education analyst provider in the evening. EKG and troponin completed and unremarkable. Vital signs stable, afebrile. AM troponin 0.04. Respiratory status continues to remain stable. CBC today shows further increase in WBC to 16.8 with neutrophilia 78.8. He was transfused with one unit last evening and Hgb shows marginal improvement at 7.7 , Hct 23.6. Initial FOB test negative. Unknown source for bleeding. He has been receiving NS @ 100mL/hr. Na level has increased to 150. Repeat PRBC transfusion today with repeat labs two hours after. Hospitalization problems and plan: # Severe sepsis, now resolved # Lactic acidosis, now resolved # Pneumonia, bibasilar # Hyponatremia, now resolved # Hypernatremia, 1+ LLE edema, no edema on RLE, lungs are clear, no evidence of overload noted. Suspect he is still dry. - Continue telemetry and VS q4h for close monitoring - Continue NS @ 100cc/hr with close monitoring for overload - Continue Zosyn and vancomycin - Repeat CBC and BMP in two hours after PRBC infusion - Await procalcitonin, blood cultures, and sputum culture # Anemia: Initial hgb on admission 12, downtrended to 6.9 less than 9hrs later without other cell line decreases suggesting dilutional effect or evidence of bleeding. Confirmatory repeat hgb 7.6. He was transfused 1 unit PRBC on 2019 with noted increase in Hgb to 7.9 post transfusion, however subsequent drop to 7.7 on 03/31/20 - Transfuse 1un PRBCs given hx of CAD and confirmatory hgb <8 - Continue pantoprazole 40mg IV BID - Repeat CBC 2hrs post transfusion and in AM - Initial FOBT negative, obtain two more - Monitor for evidence of bleeding - Obtained iron panel and retic count # R wrist edema and pain, right wrist x-ray shows no acute fracture and osteoarthritis, Uric acid 4 # Hx recurrent falls # Constipation: Abdominal exam unremarkable. Successful bowel movement with mag citrate and Fleets enema - Continue outpatient Senna-docusate and PEG prn # Subtherapeutic INR - Warfarin per pharmacy, with cautious reinitiation while awaiting above anemia workup Chronic, stable conditions: # CAD with hx CABG / Atrial fibrillation: Continue metoprolol succinate 25mg. Anticoagulation, as above. # HTN: Holding lisinopril 20mg, HCTZ 25mg, and furosemide 20mg in setting of severe sepsis. # GERD: Changed outpatient famotidine 20mg to PPI, as above. # DMT2: A1cs consistently in the high 6s, with last 6.7 10/2019. Low dose insulin sliding scale while in hospital, while holding outpatient metformin. # HLD: Continue simvastatin 20mg. # Chronic back pain: Continue oxycodone 10mg BID and 5mg prn, Tylenol prn, tizanidine prn. # Anxiety / Insomnia: Continue sertraline 100mg, mirtazapine 7.5mg, trazodone 50mg prn. Hospitalization details: # FEN: NS @ 100cc/hr. Na 150, all other electrolytes normal. Heart healthy diet. # PPX: Reinitiate warfarin, as above; hold additional pharmacologic DVT ppx given current significant anemia. # Code status: FULL. # Emergency contact: , who will be updated by nursing staff following rounds. # Disposition: Continue inpatient status. Anticipate at least 2 night stay with eventual discharge back to SNF.
[2020-03-31] MEDS ORDERED: Sodium Chloride 0.9% 250 ML IV ONE (13:00)
[2020-03-31] MEDS: Mirtazapine 15 MG Tab PO SCH (21:07)
[2020-03-31] MEDS: Simvastatin 20 MG Tab PO SCH (21:07)
[2020-03-31 21:12] LABS: ANION GAP 14.7 mmol/L (5-15); CHLORIDE,CL 101 mmol/L (98-115); SODIUM,NA 138 mmol/L (136-145)
[2020-04-01] MEDS: Pantoprazole 40 MG Vial IVPUSH SCH ×2 (00:38→11:31)
[2020-04-01] MEDS: Piperacillin/Tazobactam/Dext 3.375 GM in Premix Bag 1 BAG IV SCH ×4 (00:44→16:43)
[2020-04-01] MEDS: Sodium Chloride 0.9% 10 ML Syringe FLUSH PRN ×2 (00:45→11:30)
[2020-04-01] MEDS: Acetaminophen 325 MG Tab PO PRN ×2 (06:04→17:14)
[2020-04-01] MEDS: Insulin Aspart 100 Units/ML 3 ML Pen SUBCUT SCH ×4 (08:18→21:39)
[2020-04-01] MEDS: Carboxymethylcellulose Sodium 0.5% Ophth Soln 15 ML Bottle EYEBOTH SCH (08:20)
[2020-04-01] MEDS: Folic Acid 1 MG Tab PO SCH (08:21)
[2020-04-01] MEDS: Sertraline 50 MG Tab PO SCH (08:22)
[2020-04-01] MEDS: oxyCODONE 5 MG Tab PO SCH ×2 (08:22→21:40)
[2020-04-01] MEDS: Metoprolol Succinate 25 MG Tab.ER PO SCH (08:23)
[2020-04-01 09:33] LABS: ANION GAP 13.2 mmol/L (5-15); CHLORIDE,CL 103 mmol/L (98-115); SODIUM,NA 136 mmol/L (136-145)
[2020-04-01] MEDS: Sodium Chloride 0.9% 1,000 ML IV SCH (11:27)
--- NOTE | 2020-04-01 11:40 | PCM.PN ---
- General Info Date of Service: 04/01/20 Functional Status: Reports: Pain Controlled, Tolerating Diet. Denies: Ambulating - Review of Systems General: Reports: Weakness HEENT: Reports: No Symptoms Pulmonary: Reports: No Symptoms Cardiovascular: Denies: Chest Pain, Palpitations, Orthopnea Gastrointestinal: Denies: Constipation, Diarrhea, Nausea Genitourinary: Reports: No Symptoms Musculoskeletal: Reports: Other (Chronic generalized arthritic pains, neck, back , joints) Neurological: Reports: Pre-Existing Deficit, Difficulty Walking, Weakness. Denies: Confusion Psychiatric: Reports: Cravings (Does crave nicotine). Denies: Confusion - Patient Data Vitals - Most Recent: Last Vital Signs Temp 97.3 F 04/01/20 10:54 Pulse 62 04/01/20 10:54 Resp 20 04/01/20 10:54 BP 130/78 04/01/20 10:54 Pulse Ox 97 04/01/20 10:54 Weight - Most Recent: 179 lb 12.8 oz I&O - Last 24 Hours: Intake & Output 03/31/20 04/01/20 04/01/20 22:59 06:59 14:59 Intake Total 906 1311 Output Total 200 Balance 906 1111 Lab Results Last 24 Hours: Laboratory Results - last 24 hr 03/30/20 03/31/20 03/31/20 Range/Units 10:45 07:22 07:22 WBC (5.00-10.00) 10^3/uL RBC (4.50-6.00) 10^6/uL Hgb (13.0-17.0) g/dL Hct (40.0-52.0) % MCV (82.0-92.0) fL MCH (27.0-31.0) pg MCHC (32.0-36.0) g/dL RDW (11.5-14.5) % Plt Count (150-400) 10^3/uL MPV (7.4-10.4) fL Immature Gran % (Auto) (0.0-5.0) % Neut % (Auto) (50.0-70.0) % Lymph % (Auto) (20.0-40.0) % [place] % (Auto) (2.0-8.0) % Eos % (Auto) (1.0-3.0) % Baso % (Auto) (0.0-1.0) % Neut # (Auto) (2.50-7.00) 10^3/uL Lymph # (Auto) (1.00-4.00) 10^3/uL [place] # (Auto) (0.10-0.80) 10^3/uL Eos # (Auto) (0.10-0.30) 10^3/uL Baso # (Auto) (0.00-0.10) 10^3/uL Immature Gran # (Auto) (0.00-0.50) 10^3/uL Absolute Retic 0.0325 (0.0200-0.1000) x10-6 ul Percent Retic 1.2 (0.3-2.2) % PT INR (0.9-1.1) Sodium (136-145) mmol/L Potassium (3.3-5.3) mmol/L Chloride (98-115) mmol/L Carbon Dioxide (21.0-32.0) mmol/L Anion Gap (5-15) mmol/L BUN (6-25) mg/dL Creatinine (0.51-1.17) mg/dL Est Cr Clr Drug Dosing mL/min Estimated GFR (MDRD) mL/min Glucose (75 - 99) mg/dL POC Glucose (74-106) mg/dl Calcium (8.7-10.3) mg/dL Iron <10 L (50-150) ug/dL TIBC N/a H (261-478) ug/dL Unsaturated IBC 135 L (155-355) ug/dL Transferrin % Sat N/a H (20.0-50.0) % Ferritin 348 H (24-336) ng/mL Total Bilirubin (0.2-1.0) mg/dL AST (15-37) U/L ALT (12-78) U/L Alkaline Phosphatase (46-116) IU/L Total Protein (6.4-8.2) g/dL Albumin (3.00-4.80) g/dL Vancomycin Trough (10-20) ug/mL Blood Type A POSITIVE Gel Antibody Screen Negative Crossmatch See Detail 03/31/20 03/31/20 03/31/20 Range/Units 11:50 17:19 20:28 WBC (5.00-10.00) 10^3/uL RBC (4.50-6.00) 10^6/uL Hgb (13.0-17.0) g/dL Hct (40.0-52.0) % MCV (82.0-92.0) fL MCH (27.0-31.0) pg MCHC (32.0-36.0) g/dL RDW (11.5-14.5) % Plt Count (150-400) 10^3/uL MPV (7.4-10.4) fL Immature Gran % (Auto) (0.0-5.0) % Neut % (Auto) (50.0-70.0) % Lymph % (Auto) (20.0-40.0) % [place] % (Auto) (2.0-8.0) % Eos % (Auto) (1.0-3.0) % Baso % (Auto) (0.0-1.0) % Neut # (Auto) (2.50-7.00) 10^3/uL Lymph # (Auto) (1.00-4.00) 10^3/uL [place] # (Auto) (0.10-0.80) 10^3/uL Eos # (Auto) (0.10-0.30) 10^3/uL Baso # (Auto) (0.00-0.10) 10^3/uL Immature Gran # (Auto) (0.00-0.50) 10^3/uL Absolute Retic (0.0200-0.1000) x10-6 ul Percent Retic (0.3-2.2) % PT INR (0.9-1.1) Sodium 138 D (136-145) mmol/L Potassium 3.8 (3.3-5.3) mmol/L Chloride 101 (98-115) mmol/L Carbon Dioxide 26.1 (21.0-32.0) mmol/L Anion Gap 14.7 (5-15) mmol/L BUN 18 (6-25) mg/dL Creatinine 1.07 (0.51-1.17) mg/dL Est Cr Clr Drug Dosing 56.41 mL/min Estimated GFR (MDRD) > 60 mL/min Glucose 236 H (75 - 99) mg/dL POC Glucose 232 H 203 H (74-106) mg/dl Calcium 8.2 L (8.7-10.3) mg/dL Iron (50-150) ug/dL TIBC (261-478) ug/dL Unsaturated IBC (155-355) ug/dL Transferrin % Sat (20.0-50.0) % Ferritin (24-336) ng/mL Total Bilirubin 0.5 (0.2-1.0) mg/dL AST 26 (15-37) U/L ALT 30 (12-78) U/L Alkaline Phosphatase 94 (46-116) IU/L Total Protein 5.7 L (6.4-8.2) g/dL Albumin 1.96 L (3.00-4.80) g/dL Vancomycin Trough 8.3 L (10-20) ug/mL Blood Type Gel Antibody Screen Crossmatch 03/31/20 03/31/20 04/01/20 Range/Units 20:28 21:05 07:00 WBC 14.96 H (5.00-10.00) 10^3/uL RBC 3.10 L (4.50-6.00) 10^6/uL Hgb 8.9 L (13.0-17.0) g/dL Hct 26.2 L (40.0-52.0) % MCV 84.5 (82.0-92.0) fL MCH 28.7 (27.0-31.0) pg MCHC 34.0 (32.0-36.0) g/dL RDW 14.4 (11.5-14.5) % Plt Count 366 (150-400) 10^3/uL MPV 10.4 (7.4-10.4) fL Immature Gran % (Auto) 0.5 (0.0-5.0) % Neut % (Auto) 78.3 H (50.0-70.0) % Lymph % (Auto) 12.8 L (20.0-40.0) % [place] % (Auto) 8.2 H (2.0-8.0) % Eos % (Auto) 0.0 L (1.0-3.0) % Baso % (Auto) 0.2 (0.0-1.0) % Neut # (Auto) 11.71 H (2.50-7.00) 10^3/uL Lymph # (Auto) 1.92 (1.00-4.00) 10^3/uL [place] # (Auto) 1.22 H (0.10-0.80) 10^3/uL Eos # (Auto) 0.00 L (0.10-0.30) 10^3/uL Baso # (Auto) 0.03 (0.00-0.10) 10^3/uL Immature Gran # (Auto) 0.08 (0.00-0.50) 10^3/uL Absolute Retic (0.0200-0.1000) x10-6 ul Percent Retic (0.3-2.2) % PT TNP INR 3.0 H (0.9-1.1) Sodium (136-145) mmol/L Potassium (3.3-5.3) mmol/L Chloride (98-115) mmol/L Carbon Dioxide (21.0-32.0) mmol/L Anion Gap (5-15) mmol/L BUN (6-25) mg/dL Creatinine (0.51-1.17) mg/dL Est Cr Clr Drug Dosing mL/min Estimated GFR (MDRD) mL/min Glucose (75 - 99) mg/dL POC Glucose 228 H (74-106) mg/dl Calcium (8.7-10.3) mg/dL Iron (50-150) ug/dL TIBC (261-478) ug/dL Unsaturated IBC (155-355) ug/dL Transferrin % Sat (20.0-50.0) % Ferritin (24-336) ng/mL Total Bilirubin (0.2-1.0) mg/dL AST (15-37) U/L ALT (12-78) U/L Alkaline Phosphatase (46-116) IU/L Total Protein (6.4-8.2) g/dL Albumin (3.00-4.80) g/dL Vancomycin Trough (10-20) ug/mL Blood Type Gel Antibody Screen Crossmatch 04/01/20 04/01/20 04/01/20 Range/Units 07:23 08:42 08:42 WBC 16.82 H (5.00-10.00) 10^3/uL RBC 3.33 L (4.50-6.00) 10^6/uL Hgb 9.4 L (13.0-17.0) g/dL Hct 28.0 L (40.0-52.0) % MCV 84.1 (82.0-92.0) fL MCH 28.2 (27.0-31.0) pg MCHC 33.6 (32.0-36.0) g/dL RDW 14.5 (11.5-14.5) % Plt Count 384 (150-400) 10^3/uL MPV 10.0 (7.4-10.4) fL Immature Gran % (Auto) 0.4 (0.0-5.0) % Neut % (Auto) 80.5 H (50.0-70.0) % Lymph % (Auto) 11.2 L (20.0-40.0) % [place] % (Auto) 7.7 (2.0-8.0) % Eos % (Auto) 0.0 L (1.0-3.0) % Baso % (Auto) 0.2 (0.0-1.0) % Neut # (Auto) 13.53 H (2.50-7.00) 10^3/uL Lymph # (Auto) 1.89 (1.00-4.00) 10^3/uL [place] # (Auto) 1.29 H (0.10-0.80) 10^3/uL Eos # (Auto) 0.00 L (0.10-0.30) 10^3/uL Baso # (Auto) 0.04 (0.00-0.10) 10^3/uL Immature Gran # (Auto) 0.07 (0.00-0.50) 10^3/uL Absolute Retic (0.0200-0.1000) x10-6 ul Percent Retic (0.3-2.2) % PT INR (0.9-1.1) Sodium 136 (136-145) mmol/L Potassium 3.8 (3.3-5.3) mmol/L Chloride 103 (98-115) mmol/L Carbon Dioxide 23.6 (21.0-32.0) mmol/L Anion Gap 13.2 (5-15) mmol/L BUN 15 (6-25) mg/dL Creatinine 0.92 (0.51-1.17) mg/dL Est Cr Clr Drug Dosing 65.60 mL/min Estimated GFR (MDRD) > 60 mL/min Glucose 229 H (75 - 99) mg/dL POC Glucose 177 H (74-106) mg/dl Calcium 8.6 L (8.7-10.3) mg/dL Iron (50-150) ug/dL TIBC (261-478) ug/dL Unsaturated IBC (155-355) ug/dL Transferrin % Sat (20.0-50.0) % Ferritin (24-336) ng/mL Total Bilirubin (0.2-1.0) mg/dL AST (15-37) U/L ALT (12-78) U/L Alkaline Phosphatase (46-116) IU/L Total Protein (6.4-8.2) g/dL Albumin (3.00-4.80) g/dL Vancomycin Trough (10-20) ug/mL Blood Type Gel Antibody Screen Crossmatch Jorge Results Last 24 Hours: Microbiology 03/29/20 21:07 Urine Culture - Final Urine, Clean Catch NO GROWTH AFTER 2 DAYS 03/29/20 21:25 Aerobic Blood Culture - Preliminary Blood - Venous NO GROWTH AFTER 2 DAYS Anaerobic Blood Culture - Preliminary NO GROWTH AFTER 2 DAYS Med Orders - Current: Current Medications Acetaminophen (Tylenol) 650 mg PO Q4H PRN PRN Reason: Pain (Mild 1-3)/fever Last Admin: 04/01/20 06:04 Dose: 650 mg Artificial Tears (Refresh Tears 0.5%) 0 ml EYEBOTH DAILY [facility] Last Admin: 04/01/20 08:20 Dose: 1 drop Folic Acid (Folic Acid) 1 mg PO DAILY [facility] Last Admin: 04/01/20 08:21 Dose: 1 mg Sodium Chloride (Normal Saline) 1,000 mls @ 100 mls/hr IV ASDIRECTED [facility] Last Admin: 03/31/20 19:48 Dose: 100 mls/hr Piperacillin/Tazobactam/ (Dextrose 3.375 gm/ Premix) 50 mls @ 100 mls/hr IV Q6H [facility] Last Admin: 04/01/20 05:52 Dose: 100 mls/hr Vancomycin HCl 1 gm/ Sodium (Chloride) 250 mls @ 125 mls/hr IV Q12H [facility] Last Admin: 04/01/20 08:57 Dose: 125 mls/hr Insulin Aspart (Novolog) 0 unit SUBCUT WITHMEALSANDBED [facility]; Protocol Last Admin: 04/01/20 08:18 Dose: 1 unit Metoprolol Succinate (Toprol Xl) 25 mg PO DAILY [facility] Last Admin: 04/01/20 08:23 Dose: 25 mg Mirtazapine (Remeron) 7.5 mg PO BEDTIME [facility] Last Admin: 03/31/20 21:07 Dose: 7.5 mg Oxycodone HCl (Oxycodone) 5 mg PO BID PRN PRN Reason: Pain Oxycodone HCl (Oxycodone) 10 mg PO BID [facility] Last Admin: 04/01/20 08:22 Dose: 10 mg Pantoprazole Sodium (Protonix Iv) 40 mg IVPUSH Q12H [facility] Last Admin: 04/01/20 00:38 Dose: 40 mg Polyethylene Glycol (Miralax) 17 gm PO DAILY PRN PRN Reason: Constipation Senna/Docusate Sodium (Senna Plus) 1 tab PO BEDTIME [facility] Last Admin: 03/31/20 21:07 Dose: 1 tab Sertraline HCl (Zoloft) 100 mg PO DAILY [facility] Last Admin: 04/01/20 08:22 Dose: 100 mg Simvastatin (Zocor) 20 mg PO BEDTIME [facility] Last Admin: 03/31/20 21:07 Dose: 20 mg Sodium Chloride (Saline Flush) 10 ml FLUSH Q8HR PRN PRN Reason: keep vein open Last Admin: 04/01/20 00:45 Dose: 10 ml Tizanidine HCl (Zanaflex) 2 mg PO DAILY PRN PRN Reason: Other Trazodone HCl (Trazodone) 50 mg PO BEDTIME PRN PRN Reason: Sleep Vancomycin HCl (Pharmacy To Dose - Vancomycin) 1 dose .XX ASDIRECTED [facility] Warfarin Sodium (Pharmacy To Dose - Warfarin) 1 dose .XX ASDIRECTED [facility] Warfarin Sodium (Coumadin) 1 mg PO ONETIME@1800 [facility] Last Admin: 03/31/20 18:04 Dose: 1 mg Discontinued Medications Acetaminophen (Tylenol Extra Strength) 1,000 mg PO ONETIME ONE Stop: 03/29/20 21:09 Last Admin: 03/29/20 21:55 Dose: Not Given Acetaminophen (Tylenol) 650 mg PO NOW ONE Stop: 03/30/20 14:19 Last Admin: 03/30/20 14:33 Dose: 650 mg Acetaminophen (Tylenol Extra Strength) 1,000 mg PO ONETIME ONE Stop: 03/31/20 11:54 Last Admin: 03/31/20 13:59 Dose: 1,000 mg Famotidine (Pepcid) 20 mg PO DAILY [facility] Last Admin: 03/31/20 08:07 Dose: 20 mg Sodium Chloride (Normal Saline) 1,000 mls @ 500 drops/hr IV BOLUS ONE Stop: 03/31/20 03:06 Last Admin: 03/29/20 21:35 Dose: 500 drops/hr Piperacillin/Tazobactam/ (Dextrose 3.375 gm/ Premix) 50 mls @ 100 mls/hr IV ONETIME ONE Stop: 03/29/20 23:07 Last Admin: 03/29/20 23:12 Dose: 100 mls/hr Vancomycin HCl 1 gm/ Sodium (Chloride) 250 mls @ 167 mls/hr IV ONETIME ONE Stop: 03/30/20 00:07 Last Admin: 03/29/20 23:48 Dose: 167 mls/hr Vancomycin HCl 1.25 gm/ Sodium (Chloride) 250 mls @ 166.667 mls/hr IV Q24H [facility] Last Admin: 04/01/20 02:00 Dose: Not Given Sodium Chloride (Normal Saline) 250 mls @ 150 mls/hr IV ONETIME ONE Stop: 03/31/20 14:39 Last Admin: 03/31/20 14:40 Dose: 150 mls/hr Magnesium Citrate (Citrate Of Magnesia) 240 ml PO ONETIME ONE Stop: 03/30/20 11:12 Last Admin: 03/30/20 12:20 Dose: 240 ml Sodium Biphosphate/Sodium Phosphate (Fleet Enema) 133 ml RECTAL ONETIME ONE Stop: 03/30/20 11:12 Last Admin: 03/30/20 13:30 Dose: 133 ml Sodium Chloride (Saline Flush) 10 ml FLUSH Q8HR PRN PRN Reason: keep vein open Warfarin Sodium (Coumadin) 2 mg PO ONETIME ONE Stop: 03/30/20 18:01 Last Admin: 03/30/20 18:04 Dose: 2 mg - Exam Quality Assessment: DVT Prophylaxis. No: Supplemental Oxygen General: Alert, Oriented, Cooperative. No: Mild Distress Neck: No JVD Lungs: Clear to Auscultation, Normal Respiratory Effort. No: Crackles Cardiovascular: Irregular Rhythm GI/Abdominal Exam: Soft, Non-Tender Back Exam: Decreased Range of Motion, Paraspinal Tenderness, Vertebral Tenderness. No: CVA Tenderness (L), CVA Tenderness (R) Extremities: No Pedal Edema Peripheral Pulses: 2+: Radial (L), Radial (R) Skin: Dry, Other (Skin pallor) Psy/Mental Status: Alert, Labile Mood, Depressed. No: Agitated, Hallucinations Sepsis Event Note - Evaluation Sepsis Screening Result: Sepsis Risk - Focused Exam Vital Signs: Vital Signs Temp Pulse Pulse Resp BP BP Pulse Ox 04/01/20 10:54 97.3 F 62 20 130/78 97 04/01/20 08:23 77 159/74 H 04/01/20 07:00 98.7 F 108 H 20 155/99 H 95 04/01/20 06:55 04/01/20 06:00 99.3 F 04/01/20 02:51 99.4 F 97 20 129/68 94 L Pulse Ox 04/01/20 10:54 04/01/20 08:23 04/01/20 07:00 04/01/20 06:55 95 04/01/20 06:00 04/01/20 02:51 Date Exam was Performed: 04/01/20 Time Exam was Performed: 11:10 - Problem List Review Problem List Initiated/Reviewed/Updated: Yes - Plan Plan:: HPI summary: Mr. Ernst is an 84yoM with a history notable for CAD, atrial fibrillation, DMT2, and recurrent falls recently admitted to [facility] who complained of increased weakness and was noted to have temperature of 100.9. He was transferred to the ED via EMS. No other notable symptoms were noted on initial presentation. Notable ED findings and management: VS T 38.2, P 92, R 22, BP 100/47 WBC 9.16, neutrophils 78.5 Anion gap 17.6 Lactic acid 3.6 INR 1.2 COVID negative EKG atrial fibrillation without notable ST changes CXR bibasilar infiltrates NS 1L bolus Zosyn 3.375g Vancomycin 1g Hospital course: 03/30: Afebrile since admission. VS normalized. Respiratory status reassuring. WBC increased. Hgb dropped, see more detailed discussion below. Lactic acidosis resolved. R wrist swollen with patient reported onset >1 week ago with fall and recent improvement, but no prior wrist XR noted. 03/31: Overnight nursing reported mild chest pain to long winder tender provider in the evening. EKG and troponin completed and unremarkable. Vital signs stable, afebrile. AM troponin 0.04. Respiratory status continues to remain stable. CBC today shows further increase in WBC to 16.8 with neutrophilia 78.8. He was transfused with one unit last evening and Hgb shows marginal improvement at 7.7 , Hct 23.6. Initial FOB test negative. Unknown source for bleeding. He has been receiving NS @ 100mL/hr. Na level has increased to 150. Repeat PRBC transfusion today with repeat labs two hours after. Acute hospitalization problems --Anemia; Initial hgb on admission 12, He was transfused 1 unit PRBC on 2019 with noted increase in Hgb to 7.9 post transfusion, however subsequent drop to 7.7 on 03/31/20. Hemoglobin 9.4 corresponding hematocrit 28, asses haptoglobin - Continue pantoprazole 40mg IV BID - Initial FOBT negative, others pending - Monitor for bleeding burden - iron panel and retic count pending --Leukocytosis, Pneumonia, bibasilar, continue vancomycin, IS encouragement # Severe sepsis, now resolved # Lactic acidosis, resolved # Hyponatremia, resolved # Hypernatremia, resolved # R wrist edema and pain, right wrist x-ray shows no acute fracture and osteoarthritis, Uric acid 4 # Hx recurrent falls # Constipation: Abdominal exam unremarkable. Successful bowel movement with mag citrate and Fleets enema - Continue outpatient Senna-docusate and PEG prn # Supratherapeutic INR - Warfarin per pharmacy, Chronic, stable conditions: # CAD with hx CABG / Atrial fibrillation: Continue metoprolol succinate 25mg. Anticoagulation, as above. # HTN: restart lisinopril 20mg, hold HCTZ 25mg, and furosemide 20mg for now # GERD: Changed outpatient famotidine 20mg to PPI, as above. # DMT2: A1cs consistently in the high 6s, with last 6.7 10/2019. Low dose insulin sliding scale while in hospital, while holding outpatient metformin. # HLD: Continue simvastatin 20mg. # Chronic back pain: Continue oxycodone 10mg BID and 5mg prn, Tylenol prn, tizanidine prn. # Anxiety / Insomnia: Continue sertraline 100mg, mirtazapine 7.5mg, trazodone 50mg prn. Hospitalization details: # FEN: Discontinue IV fluids # PPX: warfarin, per pharmacy adjustment, # Code status: FULL. # Emergency contact: , who will be updated by nursing staff following rounds. # Disposition: Continue inpatient status. Anticipate DC tomorrow. Plan today --Haptoglobin --PT consultation --Restart DESTINEE inhibitor --DC IV fluids, encourage p.o. intake --DC telemetry
[2020-04-01] MEDS: Lisinopril 20 MG Tab PO SCH (15:28)
[2020-04-01] MEDS: Simvastatin 20 MG Tab PO SCH (21:40)
[2020-04-01] MEDS: Mirtazapine 15 MG Tab PO SCH (21:40)
[2020-04-02] MEDS: Piperacillin/Tazobactam/Dext 3.375 GM in Premix Bag 1 BAG IV SCH ×4 (00:36→17:59)
[2020-04-02] MEDS: Pantoprazole 40 MG Vial IVPUSH SCH ×2 (00:38→12:53)
[2020-04-02] MEDS: Sodium Chloride 0.9% 10 ML Syringe FLUSH PRN ×2 (05:21→12:54)
[2020-04-02] MEDS: Insulin Aspart 100 Units/ML 3 ML Pen SUBCUT SCH ×4 (08:16→22:50)
[2020-04-02] MEDS: Lisinopril 20 MG Tab PO SCH ×2 (09:10→09:42)
[2020-04-02] MEDS: Carboxymethylcellulose Sodium 0.5% Ophth Soln 15 ML Bottle EYEBOTH SCH (09:39)
[2020-04-02] MEDS: Metoprolol Succinate 25 MG Tab.ER PO SCH (09:42)
[2020-04-02] MEDS: Sertraline 50 MG Tab PO SCH (09:42)
[2020-04-02] MEDS: oxyCODONE 5 MG Tab PO SCH ×2 (09:43→22:31)
[2020-04-02] MEDS: Folic Acid 1 MG Tab PO SCH (09:43)
[2020-04-02] MEDS: Hydrochlorothiazide 25 MG Tab PO SCH (09:43)
--- NOTE | 2020-04-02 10:52 | PCM.PN ---
- General Info Date of Service: 04/02/20 Functional Status: Reports: Tolerating Diet, Incentive Spirometry. Denies: Pain Controlled, Ambulating - Review of Systems General: Reports: Weakness, Fatigue. Denies: Night Sweats, Appetite HEENT: Reports: No Symptoms Pulmonary: Denies: Shortness of Breath, Pleuritic Chest Pain, Cough, Sputum Cardiovascular: Denies: Chest Pain Gastrointestinal: Denies: Abdominal Pain, Constipation Genitourinary: Reports: Incontinence Musculoskeletal: Reports: Shoulder Pain, Back Pain, Other (Chronic joint neck, shoulder back pain) Skin: Reports: Pallor Neurological: Reports: Pre-Existing Deficit, Difficulty Walking, Weakness, Gait Disturbance. Denies: Confusion Psychiatric: Denies: Confusion - Patient Data Vitals - Most Recent: Last Vital Signs Temp 98.9 F 04/02/20 07:00 Pulse 119 H 04/02/20 09:42 Resp 20 04/02/20 07:00 BP 144/57 H 04/02/20 09:42 Pulse Ox 95 04/02/20 07:00 Weight - Most Recent: 179 lb 12.8 oz I&O - Last 24 Hours: Intake & Output 04/01/20 04/02/20 04/02/20 22:59 06:59 14:59 Intake Total 755 520 Output Total 150 200 Balance 605 320 Lab Results Last 24 Hours: Laboratory Results - last 24 hr 04/01/20 04/01/20 04/01/20 Range/Units 08:42 11:13 17:47 WBC (5.00-10.00) 10^3/uL RBC (4.50-6.00) 10^6/uL Hgb (13.0-17.0) g/dL Hct (40.0-52.0) % MCV (82.0-92.0) fL MCH (27.0-31.0) pg MCHC (32.0-36.0) g/dL RDW (11.5-14.5) % Plt Count (150-400) 10^3/uL MPV (7.4-10.4) fL Immature Gran % (Auto) (0.0-5.0) % Neut % (Auto) (50.0-70.0) % Lymph % (Auto) (20.0-40.0) % Bullock % (Auto) (2.0-8.0) % Eos % (Auto) (1.0-3.0) % Baso % (Auto) (0.0-1.0) % Neut # (Auto) (2.50-7.00) 10^3/uL Lymph # (Auto) (1.00-4.00) 10^3/uL Bullock # (Auto) (0.10-0.80) 10^3/uL Eos # (Auto) (0.10-0.30) 10^3/uL Baso # (Auto) (0.00-0.10) 10^3/uL Immature Gran # (Auto) (0.00-0.50) 10^3/uL Haptoglobin 455 H (44-215) mg/dL PT (8.9-11.4) SEC INR (0.9-1.1) POC Glucose 239 H 283 H (74-106) mg/dl Vancomycin Trough (10-20) ug/mL 04/01/20 04/02/20 04/02/20 Range/Units 21:37 07:30 07:50 WBC 17.12 H (5.00-10.00) 10^3/uL RBC 3.42 L (4.50-6.00) 10^6/uL Hgb 9.7 L (13.0-17.0) g/dL Hct 29.0 L (40.0-52.0) % MCV 84.8 (82.0-92.0) fL MCH 28.4 (27.0-31.0) pg MCHC 33.4 (32.0-36.0) g/dL RDW 14.7 H (11.5-14.5) % Plt Count 379 (150-400) 10^3/uL MPV 10.6 H (7.4-10.4) fL Immature Gran % (Auto) 0.4 (0.0-5.0) % Neut % (Auto) 81.4 H (50.0-70.0) % Lymph % (Auto) 10.9 L (20.0-40.0) % Bullock % (Auto) 7.1 (2.0-8.0) % Eos % (Auto) 0.0 L (1.0-3.0) % Baso % (Auto) 0.2 (0.0-1.0) % Neut # (Auto) 13.94 H (2.50-7.00) 10^3/uL Lymph # (Auto) 1.86 (1.00-4.00) 10^3/uL Bullock # (Auto) 1.22 H (0.10-0.80) 10^3/uL Eos # (Auto) 0.00 L (0.10-0.30) 10^3/uL Baso # (Auto) 0.04 (0.00-0.10) 10^3/uL Immature Gran # (Auto) 0.06 (0.00-0.50) 10^3/uL Haptoglobin (44-215) mg/dL PT (8.9-11.4) SEC INR (0.9-1.1) POC Glucose 322 H 190 H (74-106) mg/dl Vancomycin Trough (10-20) ug/mL 04/02/20 04/02/20 Range/Units 08:30 08:30 WBC (5.00-10.00) 10^3/uL RBC (4.50-6.00) 10^6/uL Hgb (13.0-17.0) g/dL Hct (40.0-52.0) % MCV (82.0-92.0) fL MCH (27.0-31.0) pg MCHC (32.0-36.0) g/dL RDW (11.5-14.5) % Plt Count (150-400) 10^3/uL MPV (7.4-10.4) fL Immature Gran % (Auto) (0.0-5.0) % Neut % (Auto) (50.0-70.0) % Lymph % (Auto) (20.0-40.0) % Bullock % (Auto) (2.0-8.0) % Eos % (Auto) (1.0-3.0) % Baso % (Auto) (0.0-1.0) % Neut # (Auto) (2.50-7.00) 10^3/uL Lymph # (Auto) (1.00-4.00) 10^3/uL Bullock # (Auto) (0.10-0.80) 10^3/uL Eos # (Auto) (0.10-0.30) 10^3/uL Baso # (Auto) (0.00-0.10) 10^3/uL Immature Gran # (Auto) (0.00-0.50) 10^3/uL Haptoglobin (44-215) mg/dL PT 31.0 H D (8.9-11.4) SEC INR 3.1 H (0.9-1.1) POC Glucose (74-106) mg/dl Vancomycin Trough 17.2 (10-20) ug/mL Jorge Results Last 24 Hours: Microbiology 03/29/20 21:25 Aerobic Blood Culture - Preliminary Blood - Venous NO GROWTH AFTER 3 DAYS Anaerobic Blood Culture - Preliminary NO GROWTH AFTER 3 DAYS 03/29/20 21:07 Urine Culture - Final Urine, Clean Catch NO GROWTH AFTER 2 DAYS Med Orders - Current: Current Medications Acetaminophen (Tylenol) 650 mg PO Q4H PRN PRN Reason: Pain (Mild 1-3)/fever Last Admin: 04/01/20 17:14 Dose: 650 mg Artificial Tears (Refresh Tears 0.5%) 0 ml EYEBOTH DAILY [facility] Last Admin: 04/02/20 09:39 Dose: 1 drop Folic Acid (Folic Acid) 1 mg PO DAILY [facility] Last Admin: 04/02/20 09:43 Dose: 1 mg Hydrochlorothiazide (Hydrochlorothiazide) 25 mg PO DAILY [facility] Last Admin: 04/02/20 09:43 Dose: 25 mg Piperacillin/Tazobactam/ (Dextrose 3.375 gm/ Premix) 50 mls @ 100 mls/hr IV Q6H [facility] Last Admin: 04/02/20 05:20 Dose: 100 mls/hr Vancomycin HCl 1 gm/ Sodium (Chloride) 250 mls @ 125 mls/hr IV Q12H [facility] Last Admin: 04/02/20 09:54 Dose: 125 mls/hr Insulin Aspart (Novolog) 0 unit SUBCUT WITHMEALSANDBED [facility]; Protocol Last Admin: 04/02/20 08:16 Dose: 1 unit Lisinopril (Prinivil) 20 mg PO DAILY [facility] Last Admin: 04/02/20 09:10 Dose: 20 mg Lisinopril (Prinivil) 20 mg PO DAILY [facility] Last Admin: 04/02/20 09:42 Dose: 20 mg Metoprolol Succinate (Toprol Xl) 25 mg PO DAILY [facility] Last Admin: 04/02/20 09:42 Dose: 25 mg Mirtazapine (Remeron) 7.5 mg PO BEDTIME [facility] Last Admin: 04/01/20 21:40 Dose: 7.5 mg Oxycodone HCl (Oxycodone) 5 mg PO BID PRN PRN Reason: Pain Oxycodone HCl (Oxycodone) 10 mg PO BID [facility] Last Admin: 04/02/20 09:43 Dose: 10 mg Pantoprazole Sodium (Protonix Iv) 40 mg IVPUSH Q12H [facility] Last Admin: 04/02/20 00:38 Dose: 40 mg Polyethylene Glycol (Miralax) 17 gm PO DAILY PRN PRN Reason: Constipation Senna/Docusate Sodium (Senna Plus) 1 tab PO BEDTIME [facility] Last Admin: 04/01/20 21:39 Dose: 1 tab Sertraline HCl (Zoloft) 100 mg PO DAILY [facility] Last Admin: 04/02/20 09:42 Dose: 100 mg Simvastatin (Zocor) 20 mg PO BEDTIME [facility] Last Admin: 04/01/20 21:40 Dose: 20 mg Sodium Chloride (Saline Flush) 10 ml FLUSH Q8HR PRN PRN Reason: keep vein open Last Admin: 04/02/20 05:21 Dose: 10 ml Tizanidine HCl (Zanaflex) 2 mg PO DAILY PRN PRN Reason: Other Trazodone HCl (Trazodone) 50 mg PO BEDTIME PRN PRN Reason: Sleep Vancomycin HCl (Pharmacy To Dose - Vancomycin) 1 dose .XX ASDIRECTED [facility] Warfarin Sodium (Pharmacy To Dose - Warfarin) 1 dose .XX ASDIRECTED [facility] Warfarin Sodium (Coumadin) 2 mg PO MoFr@1800 [facility] Warfarin Sodium (Coumadin) 1 mg PO SuTuWeThSa@1800 [facility] Last Admin: 04/01/20 18:10 Dose: 1 mg Discontinued Medications Acetaminophen (Tylenol Extra Strength) 1,000 mg PO ONETIME ONE Stop: 03/29/20 21:09 Last Admin: 03/29/20 21:55 Dose: Not Given Acetaminophen (Tylenol) 650 mg PO NOW ONE Stop: 03/30/20 14:19 Last Admin: 03/30/20 14:33 Dose: 650 mg Acetaminophen (Tylenol Extra Strength) 1,000 mg PO ONETIME ONE Stop: 03/31/20 11:54 Last Admin: 03/31/20 13:59 Dose: 1,000 mg Famotidine (Pepcid) 20 mg PO DAILY [facility] Last Admin: 03/31/20 08:07 Dose: 20 mg Sodium Chloride (Normal Saline) 1,000 mls @ 500 drops/hr IV BOLUS ONE Stop: 03/31/20 03:06 Last Admin: 03/29/20 21:35 Dose: 500 drops/hr Piperacillin/Tazobactam/ (Dextrose 3.375 gm/ Premix) 50 mls @ 100 mls/hr IV ONETIME ONE Stop: 03/29/20 23:07 Last Admin: 03/29/20 23:12 Dose: 100 mls/hr Vancomycin HCl 1 gm/ Sodium (Chloride) 250 mls @ 167 mls/hr IV ONETIME ONE Stop: 03/30/20 00:07 Last Admin: 03/29/20 23:48 Dose: 167 mls/hr Sodium Chloride (Normal Saline) 1,000 mls @ 100 mls/hr IV ASDIRECTED [facility] Last Admin: 04/01/20 11:27 Dose: 100 mls/hr Vancomycin HCl 1.25 gm/ Sodium (Chloride) 250 mls @ 166.667 mls/hr IV Q24H [facility] Last Admin: 04/01/20 02:00 Dose: Not Given Sodium Chloride (Normal Saline) 250 mls @ 150 mls/hr IV ONETIME ONE Stop: 03/31/20 14:39 Last Admin: 03/31/20 14:40 Dose: 150 mls/hr Magnesium Citrate (Citrate Of Magnesia) 240 ml PO ONETIME ONE Stop: 03/30/20 11:12 Last Admin: 03/30/20 12:20 Dose: 240 ml Sodium Biphosphate/Sodium Phosphate (Fleet Enema) 133 ml RECTAL ONETIME ONE Stop: 03/30/20 11:12 Last Admin: 03/30/20 13:30 Dose: 133 ml Sodium Chloride (Saline Flush) 10 ml FLUSH Q8HR PRN PRN Reason: keep vein open Warfarin Sodium (Coumadin) 2 mg PO ONETIME ONE Stop: 03/30/20 18:01 Last Admin: 03/30/20 18:04 Dose: 2 mg Warfarin Sodium (Coumadin) 1 mg PO ONETIME@1800 [facility] Last Admin: 03/31/20 18:04 Dose: 1 mg - Exam Quality Assessment: DVT Prophylaxis. No: Supplemental Oxygen General: Alert, Oriented, Cooperative, Mild Distress Neck: No JVD Lungs: Clear to Auscultation, Normal Respiratory Effort Cardiovascular: Irregular Rhythm, Tachycardia GI/Abdominal Exam: Normal Bowel Sounds, Soft (Male) Exam: Deferred Back Exam: No: CVA Tenderness (L), CVA Tenderness (R) Extremities: No Pedal Edema Skin: Dry Neurological: Normal Speech, Normal Tone. No: Normal Gait Psy/Mental Status: Alert, Depressed Sepsis Event Note - Evaluation Sepsis Screening Result: Sepsis Risk - Focused Exam Vital Signs: Vital Signs Temp Pulse Pulse Resp BP BP Pulse Ox 04/02/20 09:42 119 H 144/57 H 04/02/20 09:10 143/62 H 04/02/20 07:00 98.9 F 100 20 168/87 H 95 04/02/20 02:55 98.1 F 110 H 20 140/78 97 04/01/20 22:54 99.0 F 86 20 151/80 H 98 Date Exam was Performed: 04/02/20 Time Exam was Performed: 10:43 - Problem List Review Problem List Initiated/Reviewed/Updated: Yes - My Orders Last 24 Hours: My Active Orders 04/01/20 11:38 Consult to Physical Therapy [PT Evaluation and Treatment] [CONS] Routine 04/01/20 13:30 Convert IV to Saline Lock [OM.PC] Routine 04/01/20 14:00 lisinopriL [Prinivil] 20 mg PO DAILY 04/02/20 09:00 hydroCHLOROthiazide 25 mg PO DAILY lisinopriL [Prinivil] 20 mg PO DAILY 04/02/20 09:45 Pharmacy to Dose - Vancomycin 1 dose .XX ASDIRECTED 04/02/20 10:40 CXR [Chest 1V Frontal] [CR] Routine 04/04/20 08:30 VANCOMYCIN TROUGH [CHEM] Routine - Plan Plan:: HPI summary: Mr. Ernst is an 84yoM with a history notable for CAD, atrial fibrillation, DMT2, and recurrent falls recently admitted to [facility] who complained of increased weakness and was noted to have temperature of 100.9. He was transferred to the ED via EMS. No other notable symptoms were noted on initial presentation. Notable ED findings and management: VS T 38.2, P 92, R 22, BP 100/47 WBC 9.16, neutrophils 78.5 Anion gap 17.6 Lactic acid 3.6 INR 1.2 COVID negative EKG atrial fibrillation without notable ST changes CXR bibasilar infiltrates NS 1L bolus Zosyn 3.375g Vancomycin 1g Hospital course: 03/30: Afebrile since admission. VS normalized. Respiratory status reassuring. WBC increased. Hgb dropped, see more detailed discussion below. Lactic acidosis resolved. R wrist swollen with patient reported onset >1 week ago with fall and recent improvement, but no prior wrist XR noted. 03/31: Overnight nursing reported mild chest pain to visual presentation manager provider in the evening. EKG and troponin completed and unremarkable. Vital signs stable, afebrile. AM troponin 0.04. Respiratory status continues to remain stable. CBC today shows further increase in WBC to 16.8 with neutrophilia 78.8. He was transfused with one unit last evening and Hgb shows marginal improvement at 7.7 , Hct 23.6. Initial FOB test negative. Unknown source for bleeding. He has been receiving NS @ 100mL/hr. Na level has increased to 150. Repeat PRBC transfusion today with repeat labs two hours after. Acute hospitalization problems --Anemia; Initial hgb on admission 12, He was transfused 1 unit PRBC on 2019 with noted increase in Hgb to 7.9 post transfusion, however subsequent drop to 7.7 on 03/31/20. Hemoglobin 9.4 corresponding hematocrit 28, elevated haptoglobin--likely due to pneumonia less likely hemolytic, HGB improving - Continue pantoprazole 40mg IV BID - Initial FOBT negative, others pending - Monitor for bleeding burden -Low daily circulating iron, retic count pending --Leukocytosis, Pneumonia, bibasilar, Zoysn/vancomycin, therapeutic trough going on, IS encouragement # Severe sepsis, now resolved # Lactic acidosis, resolved # Hyponatremia, resolved # Hypernatremia, resolved # R wrist edema and pain, right wrist x-ray shows no acute fracture and osteoarthritis, Uric acid 4 # Hx recurrent falls # Constipation: Abdominal exam unremarkable. Successful bowel movement with mag citrate and Fleets enema - Continue outpatient Senna-docusate and PEG prn # Supratherapeutic INR - Warfarin per pharmacy, Chronic, stable conditions: # CAD with hx CABG / Atrial fibrillation: Continue metoprolol succinate 25mg. Anticoagulation, as above. # HTN: restart lisinopril 20mg, hold HCTZ 25mg, and furosemide 20mg for now # GERD: Changed outpatient famotidine 20mg to PPI, as above. # DMT2: A1cs consistently in the high 6s, with last 6.7 10/2019. Low dose insulin sliding scale while in hospital, while holding outpatient metformin. # HLD: Continue simvastatin 20mg. # Chronic back pain: Continue oxycodone 10mg BID and 5mg prn, Tylenol prn, tizanidine prn. # Anxiety / Insomnia: Continue sertraline 100mg, mirtazapine 7.5mg, trazodone 50mg prn. Hospitalization details: # FEN: No IV IV fluids # PPX: Cross covered with warfarin, per pharmacy adjustment, # Code status: FULL. # Emergency contact: , who will be updated by nursing staff following rounds. # Disposition: Continue inpatient status. Anticipate DC tomorrow. Plan today --Repeat CXR --Restart DESTINEE inhibitor --encourage p.o. intake --Cont telemetry,
--- NOTE | 2020-04-02 11:34 | CR ---
[id number] RAD/RAD Chest PA or AP 1V EXAM: RAD Chest PA or AP 1V INDICATION: PNEUMONIA STATUS. COMPARISON: Multiple priors, most recent from March 29, 2020. DISCUSSION: Since the prior examination, there are increased hilar and bibasal parenchymal opacities with effusions. Additionally there is cardiomegaly and central vascular congestion. Radiographic appearance is somewhat nonspecific. Differential diagnosis includes progression of fluid retention/congestive heart failure exacerbation versus pneumonia. Correlate for signs of infection. IMPRESSION: As above. Abdelrahman Lombardo MD 04/02/20 1134 Thank you for allowing us to participate in the care of your patient.
[2020-04-02] MEDS ORDERED: Warfarin 2 MG Tab PO SCH (18:00)
[2020-04-02] MEDS: Nicotine 21 MG/24 Hr Patch TRDERM SCH (18:11)
[2020-04-02] MEDS: oxyCODONE 5 MG Tab PO PRN (18:16)
[2020-04-02] MEDS: Polyethylene Glycol 3350 Powder 17 GM Packet PO PRN (18:16)
[2020-04-02] MEDS: Mirtazapine 15 MG Tab PO SCH (22:30)
[2020-04-02] MEDS: Simvastatin 20 MG Tab PO SCH (22:31)
[2020-04-03] MEDS: Pantoprazole 40 MG Vial IVPUSH SCH ×3 (01:01→22:14)
[2020-04-03] MEDS: Piperacillin/Tazobactam/Dext 3.375 GM in Premix Bag 1 BAG IV SCH ×3 (01:08→11:03)
[2020-04-03] MEDS: Polyethylene Glycol 3350 Powder 17 GM Packet PO PRN (07:48)
[2020-04-03 07:57] LABS: ANION GAP 13.3 mmol/L (5-15); CHLORIDE,CL 100 mmol/L (98-115); SODIUM,NA 136 mmol/L (136-145)
[2020-04-03] MEDS: Insulin Aspart 100 Units/ML 3 ML Pen SUBCUT SCH ×4 (08:10→21:39)
[2020-04-03] MEDS: Nicotine 21 MG/24 Hr Patch TRDERM SCH (08:11)
[2020-04-03] MEDS: Carboxymethylcellulose Sodium 0.5% Ophth Soln 15 ML Bottle EYEBOTH SCH (08:11)
[2020-04-03] MEDS: Sodium Chloride 0.9% 10 ML Syringe FLUSH PRN (08:12)
[2020-04-03] MEDS: oxyCODONE 5 MG Tab PO SCH ×2 (08:14→21:42)
[2020-04-03] MEDS: Sertraline 50 MG Tab PO SCH (08:14)
[2020-04-03] MEDS: Folic Acid 1 MG Tab PO SCH (08:14)
[2020-04-03] MEDS: Lisinopril 20 MG Tab PO SCH ×2 (08:15)
[2020-04-03] MEDS: Hydrochlorothiazide 25 MG Tab PO SCH (08:15)
[2020-04-03] MEDS: Metoprolol Succinate 25 MG Tab.ER PO SCH (08:15)
[2020-04-03] MEDS ORDERED: Azithromycin 500 MG in Sodium Chloride 0.9% 250 ML IV ONE (13:35)
[2020-04-03] MEDS ORDERED: Potassium Chloride 10 MEQ Tab.ER PO ONE (13:47)
--- NOTE | 2020-04-03 13:49 | PCM.PN ---
- General Info Date of Service: 04/03/20 - Review of Systems General: Reports: Weakness, Fatigue, Chills, Appetite. Denies: Fever HEENT: Reports: No Symptoms Pulmonary: Reports: Cough. Denies: Shortness of Breath, Pleuritic Chest Pain, Sputum, Wheezing Cardiovascular: Denies: Chest Pain, Palpitations, Dyspnea on Exertion, Orthopnea , Edema Gastrointestinal: Reports: Constipation. Denies: Abdominal Pain, Diarrhea, Hematochezia, Melena, Nausea, Vomiting Genitourinary: Reports: Incontinence Musculoskeletal: Reports: Neck Pain, Shoulder Pain, Back Pain, Other (chronic neck, shoulder, and back pain) Neurological: Reports: Pre-Existing Deficit, Weakness Psychiatric: Reports: Depression - Patient Data Vitals - Most Recent: Last Vital Signs Temp 99.0 F 04/03/20 06:17 Pulse 121 H 04/03/20 08:15 Resp 20 04/03/20 06:17 BP 158/84 H 04/03/20 08:15 Pulse Ox 95 04/03/20 06:17 Weight - Most Recent: 179 lb 12.8 oz I&O - Last 24 Hours: Intake & Output 04/02/20 04/03/20 04/03/20 22:59 06:59 14:59 Intake Total 500 505 725 Output Total 150 100 325 Balance 350 405 400 Lab Results Last 24 Hours: Laboratory Results - last 24 hr 04/02/20 04/02/20 04/03/20 Range/Units 17:37 22:47 07:20 WBC (5.00-10.00) 10^3/uL RBC (4.50-6.00) 10^6/uL Hgb (13.0-17.0) g/dL Hct (40.0-52.0) % MCV (82.0-92.0) fL MCH (27.0-31.0) pg MCHC (32.0-36.0) g/dL RDW (11.5-14.5) % Plt Count (150-400) 10^3/uL MPV (7.4-10.4) fL Immature Gran % (Auto) (0.0-5.0) % Neut % (Auto) (50.0-70.0) % Lymph % (Auto) (20.0-40.0) % [place] % (Auto) (2.0-8.0) % Eos % (Auto) (1.0-3.0) % Baso % (Auto) (0.0-1.0) % Neut # (Auto) (2.50-7.00) 10^3/uL Lymph # (Auto) (1.00-4.00) 10^3/uL [place] # (Auto) (0.10-0.80) 10^3/uL Eos # (Auto) (0.10-0.30) 10^3/uL Baso # (Auto) (0.00-0.10) 10^3/uL Immature Gran # (Auto) (0.00-0.50) 10^3/uL PT 32.7 H (8.9-11.4) SEC INR 3.3 H (0.9-1.1) Sodium (136-145) mmol/L Potassium (3.3-5.3) mmol/L Chloride (98-115) mmol/L Carbon Dioxide (21.0-32.0) mmol/L Anion Gap (5-15) mmol/L BUN (6-25) mg/dL Creatinine (0.51-1.17) mg/dL Est Cr Clr Drug Dosing mL/min Estimated GFR (MDRD) mL/min Glucose (75 - 99) mg/dL POC Glucose 311 H 281 H (74-106) mg/dl Calcium (8.7-10.3) mg/dL 04/03/20 04/03/20 04/03/20 Range/Units 07:20 07:20 07:38 WBC 16.62 H (5.00-10.00) 10^3/uL RBC 3.09 L (4.50-6.00) 10^6/uL Hgb 8.6 L (13.0-17.0) g/dL Hct 26.0 L (40.0-52.0) % MCV 84.1 (82.0-92.0) fL MCH 27.8 (27.0-31.0) pg MCHC 33.1 (32.0-36.0) g/dL RDW 15.0 H (11.5-14.5) % Plt Count 356 (150-400) 10^3/uL MPV 10.2 (7.4-10.4) fL Immature Gran % (Auto) 0.5 (0.0-5.0) % Neut % (Auto) 78.0 H (50.0-70.0) % Lymph % (Auto) 12.8 L (20.0-40.0) % [place] % (Auto) 8.4 H (2.0-8.0) % Eos % (Auto) 0.0 L (1.0-3.0) % Baso % (Auto) 0.3 (0.0-1.0) % Neut # (Auto) 12.96 H (2.50-7.00) 10^3/uL Lymph # (Auto) 2.13 (1.00-4.00) 10^3/uL [place] # (Auto) 1.40 H (0.10-0.80) 10^3/uL Eos # (Auto) 0.00 L (0.10-0.30) 10^3/uL Baso # (Auto) 0.05 (0.00-0.10) 10^3/uL Immature Gran # (Auto) 0.08 (0.00-0.50) 10^3/uL PT (8.9-11.4) SEC INR (0.9-1.1) Sodium 136 (136-145) mmol/L Potassium 3.3 (3.3-5.3) mmol/L Chloride 100 (98-115) mmol/L Carbon Dioxide 26.0 (21.0-32.0) mmol/L Anion Gap 13.3 (5-15) mmol/L BUN 15 (6-25) mg/dL Creatinine 0.93 (0.51-1.17) mg/dL Est Cr Clr Drug Dosing 64.90 mL/min Estimated GFR (MDRD) > 60 mL/min Glucose 198 H (75 - 99) mg/dL POC Glucose 197 H (74-106) mg/dl Calcium 8.5 L (8.7-10.3) mg/dL 04/03/20 Range/Units 11:31 WBC (5.00-10.00) 10^3/uL RBC (4.50-6.00) 10^6/uL Hgb (13.0-17.0) g/dL Hct (40.0-52.0) % MCV (82.0-92.0) fL MCH (27.0-31.0) pg MCHC (32.0-36.0) g/dL RDW (11.5-14.5) % Plt Count (150-400) 10^3/uL MPV (7.4-10.4) fL Immature Gran % (Auto) (0.0-5.0) % Neut % (Auto) (50.0-70.0) % Lymph % (Auto) (20.0-40.0) % [place] % (Auto) (2.0-8.0) % Eos % (Auto) (1.0-3.0) % Baso % (Auto) (0.0-1.0) % Neut # (Auto) (2.50-7.00) 10^3/uL Lymph # (Auto) (1.00-4.00) 10^3/uL [place] # (Auto) (0.10-0.80) 10^3/uL Eos # (Auto) (0.10-0.30) 10^3/uL Baso # (Auto) (0.00-0.10) 10^3/uL Immature Gran # (Auto) (0.00-0.50) 10^3/uL PT (8.9-11.4) SEC INR (0.9-1.1) Sodium (136-145) mmol/L Potassium (3.3-5.3) mmol/L Chloride (98-115) mmol/L Carbon Dioxide (21.0-32.0) mmol/L Anion Gap (5-15) mmol/L BUN (6-25) mg/dL Creatinine (0.51-1.17) mg/dL Est Cr Clr Drug Dosing mL/min Estimated GFR (MDRD) mL/min Glucose (75 - 99) mg/dL POC Glucose 327 H (74-106) mg/dl Calcium (8.7-10.3) mg/dL Jorge Results Last 24 Hours: Microbiology 03/29/20 21:25 Aerobic Blood Culture - Preliminary Blood - Venous NO GROWTH AFTER 4 DAYS Anaerobic Blood Culture - Preliminary NO GROWTH AFTER 4 DAYS Med Orders - Current: Current Medications Acetaminophen (Tylenol) 650 mg PO Q4H PRN PRN Reason: Pain (Mild 1-3)/fever Last Admin: 04/01/20 17:14 Dose: 650 mg Amoxicillin/Clavulanate Potassium (Augmentin 875 Mg/125 Mg) 1 tab PO Q12HR [facility] Artificial Tears (Refresh Tears 0.5%) 0 ml EYEBOTH DAILY [facility] Last Admin: 04/03/20 08:11 Dose: 1 drop Folic Acid (Folic Acid) 1 mg PO DAILY [facility] Last Admin: 04/03/20 08:14 Dose: 1 mg Hydrochlorothiazide (Hydrochlorothiazide) 25 mg PO DAILY [facility] Last Admin: 04/03/20 08:15 Dose: 25 mg Azithromycin 500 mg/ Sodium (Chloride) 250 mls @ 250 mls/hr IV ONETIME ONE Stop: 04/03/20 14:34 Insulin Aspart (Novolog) 0 unit SUBCUT WITHMEALSANDBED [facility]; Protocol Last Admin: 04/03/20 12:11 Dose: 4 unit Lisinopril (Prinivil) 20 mg PO DAILY [facility] Last Admin: 04/03/20 08:15 Dose: 20 mg Lisinopril (Prinivil) 20 mg PO DAILY [facility] Last Admin: 04/03/20 08:15 Dose: 20 mg Metoprolol Succinate (Toprol Xl) 25 mg PO DAILY [facility] Last Admin: 04/03/20 08:15 Dose: 25 mg Mirtazapine (Remeron) 7.5 mg PO BEDTIME [facility] Last Admin: 04/02/20 22:30 Dose: 7.5 mg Nicotine (Habitrol) 21 mg TRDERM DAILY [facility] Last Admin: 04/03/20 08:11 Dose: 21 mg Warfarin No Dose (Today) 0 each PO ONETIME ONE Stop: 04/03/20 18:01 Oxycodone HCl (Oxycodone) 5 mg PO BID PRN PRN Reason: Pain Last Admin: 04/02/20 18:16 Dose: 5 mg Oxycodone HCl (Oxycodone) 10 mg PO BID [facility] Last Admin: 04/03/20 08:14 Dose: 10 mg Pantoprazole Sodium (Protonix Iv) 40 mg IVPUSH Q12H [facility] Last Admin: 04/03/20 11:32 Dose: 40 mg Polyethylene Glycol (Miralax) 17 gm PO DAILY PRN PRN Reason: Constipation Last Admin: 04/03/20 07:48 Dose: 17 gm Potassium Chloride (Klor-Con 10) 10 meq PO ONETIME ONE Stop: 04/03/20 13:48 Senna/Docusate Sodium (Senna Plus) 1 tab PO BEDTIME [facility] Last Admin: 04/02/20 22:31 Dose: 1 tab Sertraline HCl (Zoloft) 100 mg PO DAILY [facility] Last Admin: 04/03/20 08:14 Dose: 100 mg Simvastatin (Zocor) 20 mg PO BEDTIME [facility] Last Admin: 04/02/20 22:31 Dose: 20 mg Sodium Chloride (Saline Flush) 10 ml FLUSH Q8HR PRN PRN Reason: keep vein open Last Admin: 04/03/20 08:12 Dose: 10 ml Tizanidine HCl (Zanaflex) 2 mg PO DAILY PRN PRN Reason: Other Trazodone HCl (Trazodone) 50 mg PO BEDTIME PRN PRN Reason: Sleep Vancomycin HCl (Pharmacy To Dose - Vancomycin) 1 dose .XX ASDIRECTED [facility] Warfarin Sodium (Pharmacy To Dose - Warfarin) 1 dose .XX ASDIRECTED [facility] Warfarin Sodium (Coumadin) 2 mg PO MoFr@1800 [facility] Last Admin: 04/02/20 18:00 Dose: 2 mg Warfarin Sodium (Coumadin) 1 mg PO SuTuWeThSa@1800 [facility] Last Admin: 04/01/20 18:10 Dose: 1 mg Discontinued Medications Acetaminophen (Tylenol Extra Strength) 1,000 mg PO ONETIME ONE Stop: 03/29/20 21:09 Last Admin: 03/29/20 21:55 Dose: Not Given Acetaminophen (Tylenol) 650 mg PO NOW ONE Stop: 03/30/20 14:19 Last Admin: 03/30/20 14:33 Dose: 650 mg Acetaminophen (Tylenol Extra Strength) 1,000 mg PO ONETIME ONE Stop: 03/31/20 11:54 Last Admin: 03/31/20 13:59 Dose: 1,000 mg Famotidine (Pepcid) 20 mg PO DAILY [facility] Last Admin: 03/31/20 08:07 Dose: 20 mg Sodium Chloride (Normal Saline) 1,000 mls @ 500 drops/hr IV BOLUS ONE Stop: 03/31/20 03:06 Last Admin: 03/29/20 21:35 Dose: 500 drops/hr Piperacillin/Tazobactam/ (Dextrose 3.375 gm/ Premix) 50 mls @ 100 mls/hr IV ONETIME ONE Stop: 03/29/20 23:07 Last Admin: 03/29/20 23:12 Dose: 100 mls/hr Vancomycin HCl 1 gm/ Sodium (Chloride) 250 mls @ 167 mls/hr IV ONETIME ONE Stop: 03/30/20 00:07 Last Admin: 03/29/20 23:48 Dose: 167 mls/hr Sodium Chloride (Normal Saline) 1,000 mls @ 100 mls/hr IV ASDIRECTED [facility] Last Admin: 04/01/20 11:27 Dose: 100 mls/hr Piperacillin/Tazobactam/ (Dextrose 3.375 gm/ Premix) 50 mls @ 100 mls/hr IV Q6H [facility] Last Admin: 04/03/20 11:03 Dose: 100 mls/hr Vancomycin HCl 1.25 gm/ Sodium (Chloride) 250 mls @ 166.667 mls/hr IV Q24H [facility] Last Admin: 04/01/20 02:00 Dose: Not Given Sodium Chloride (Normal Saline) 250 mls @ 150 mls/hr IV ONETIME ONE Stop: 03/31/20 14:39 Last Admin: 03/31/20 14:40 Dose: 150 mls/hr Vancomycin HCl 1 gm/ Sodium (Chloride) 250 mls @ 125 mls/hr IV Q12H [facility] Last Admin: 04/03/20 08:12 Dose: 125 mls/hr Magnesium Citrate (Citrate Of Magnesia) 240 ml PO ONETIME ONE Stop: 03/30/20 11:12 Last Admin: 03/30/20 12:20 Dose: 240 ml Sodium Biphosphate/Sodium Phosphate (Fleet Enema) 133 ml RECTAL ONETIME ONE Stop: 03/30/20 11:12 Last Admin: 03/30/20 13:30 Dose: 133 ml Sodium Chloride (Saline Flush) 10 ml FLUSH Q8HR PRN PRN Reason: keep vein open Warfarin Sodium (Coumadin) 2 mg PO ONETIME ONE Stop: 03/30/20 18:01 Last Admin: 03/30/20 18:04 Dose: 2 mg Warfarin Sodium (Coumadin) 1 mg PO ONETIME@1800 [facility] Last Admin: 03/31/20 18:04 Dose: 1 mg - Exam General: Alert Neck: Supple, No JVD Lungs: Clear to Auscultation, Normal Respiratory Effort, Decreased Breath Sounds Cardiovascular: Regular Rate, Irregular Rhythm GI/Abdominal Exam: Normal Bowel Sounds, Non-Tender. No: Distended (Male) Exam: Deferred Extremities: Pedal Edema (trace ankle edema bilaterally.) Skin: Warm Neurological: No New Focal Deficit Psy/Mental Status: Alert, Depressed Sepsis Event Note - Evaluation Sepsis Screening Result: Severe Sepsis Risk - Focused Exam Vital Signs: Vital Signs Temp Pulse Pulse Resp BP BP Pulse Ox 04/03/20 08:15 121 H 158/84 H 04/03/20 06:17 99.0 F 110 H 20 156/68 H 95 Date Exam was Performed: 04/07/20 Time Exam was Performed: 09:10 - Problem List Review Problem List Initiated/Reviewed/Updated: Yes - My Orders Last 24 Hours: My Active Orders 04/02/20 17:45 Nicotine [Habitrol] 21 mg TRDERM DAILY 04/03/20 13:35 Azithromycin [Zithromax] 500 mg Sodium Chloride 0.9% [Normal Saline] 250 ml IV ONETIME 04/03/20 13:47 Potassium Chloride [Klor-Con 10] 10 meq PO ONETIME ONE 04/03/20 13:48 CRP [C-REACTIVE PROTEIN] [CHEM] Routine STREP PNEUMONIAE ANTIGEN [MREF] Routine 04/03/20 13:49 ESR [SEDIMENTATION RATE AUTO] [HEME] Routine 04/03/20 14:00 Amoxicillin/Clavulanate K [Augmentin 875 MG/125 MG] 1 tab PO Q12HR 04/03/20 18:00 Non-Formulary Medication [NF Drug] 0 each PO ONETIME ONE 04/04/20 05:11 CBC WITH AUTO DIFF [HEME] DAILY - Plan Plan:: HPI summary: Mr. Ernst is an 84yoM with a history notable for CAD, atrial fibrillation, DMT2, and recurrent falls recently admitted to [facility] who complained of increased weakness and was noted to have temperature of 100.9. He was transferred to the ED via EMS. No other notable symptoms were noted on initial presentation. Notable ED findings and management: VS T 38.2, P 92, R 22, BP 100/47 WBC 9.16, neutrophils 78.5 Anion gap 17.6 Lactic acid 3.6 INR 1.2 COVID negative EKG atrial fibrillation without notable ST changes CXR bibasilar infiltrates NS 1L bolus Zosyn 3.375g Vancomycin 1g Hospital course: 03/30: Afebrile since admission. VS normalized. Respiratory status reassuring. WBC increased. Hgb dropped, see more detailed discussion below. Lactic acidosis resolved. R wrist swollen with patient reported onset >1 week ago with fall and recent improvement, but no prior wrist XR noted. 03/31: Overnight nursing reported mild chest pain to chemical operations specialist provider in the evening. EKG and troponin completed and unremarkable. Vital signs stable, afebrile. AM troponin 0.04. Respiratory status continues to remain stable. CBC today shows further increase in WBC to 16.8 with neutrophilia 78.8. He was transfused with one unit last evening and Hgb shows marginal improvement at 7.7 , Hct 23.6. Initial FOB test negative. Unknown source for bleeding. He has been receiving NS @ 100mL/hr. Na level has increased to 150. Repeat PRBC transfusion today with repeat labs two hours after. 04/02: Continued WBC elevation. Afebrile. Repeat chest x-ray completed with increased hilar and bibasal parenchymal opacities with effusions. Cardiomegaly and central vascular congestion. 04/03: no overnight calls or concerns. low grade fever overnight of 100.8. Afebrile since. WBC count slight improvement today from 17.12 to 16.62. Patients mood is down today. Acute hospitalization problems #Anemia; Initial hgb on admission 12 with notable drop to 6.9, He was transfused 1 unit PRBC on 03/30/2020 with increase in Hgb to 7.9 post transfusion , however subsequent drop to 7.7 on 03/31/20 with another 1 Unit PRBC transfused. Hemoglobin 9.4 corresponding hematocrit 28, elevated haptoglobin--likely due to pneumonia less likely hemolytic. Hemoglobin drop noted from 9.7 on 04/02/20 to 8.6 today. - Continue pantoprazole 40mg IV BID - Initial FOBT negative, others pending. No BM since admit. - Monitor for bleeding burden -Low daily circulating iron, retic count pending #Leukocytosis, Pneumonia, bibasilar- repeat chest x-ray 04/02/20 with increased hilar and bibasal parenchymal opacities with effusions. Cardiomegaly and central vascular congestion. Clinical picture not fitting with CHF/overload picture. WBC mildly decreased today from 17.12 to 16.62. Begin targeted antimicrobial therapy and coverage for atypical pathogens. Start IV azithromycin 500mg daily and Augmentin PO. ESR and CRP today and pending. Strep pneumoniae antigen today. Mycoplasma titer. Procalcitonin not done due to 72 hour lab delay. I/S encouragement. Recheck labs tomorrow. # Constipation: Abdominal exam unremarkable. No bowel movement since admission magnesium citrate and enema. - Magnesium Citrate dose today. Assess response. - Continue outpatient Senna-docusate and PEG prn # Tobacco dependence: NRT while in the hospital. # Supratherapeutic INR - Warfarin per pharmacy # Severe sepsis, now resolved, blood cultures negative. # Lactic acidosis, resolved # Hyponatremia, resolved # Hypernatremia, resolved # R wrist edema and pain, right wrist x-ray shows no acute fracture and osteoarthritis, Uric acid 4 # Hx recurrent falls Chronic, stable conditions: # CAD with hx CABG / Atrial fibrillation: Continue metoprolol succinate 25mg. Anticoagulation, as above. # HTN: lisinopril 20mg, hold HCTZ 25mg, and furosemide 20mg for now # GERD: Changed outpatient famotidine 20mg to PPI, as above. # DMT2: A1cs consistently in the high 6s, with last 6.7 10/2019. Low dose insulin sliding scale while in hospital, while holding outpatient metformin. # HLD: Continue simvastatin 20mg. # Chronic back pain: Continue oxycodone 10mg BID and 5mg prn, Tylenol prn, tizanidine prn. # Anxiety / Insomnia: Continue sertraline 100mg, mirtazapine 7.5mg, trazodone 50mg prn. Hospitalization details: # FEN: IVF SL. Potassium trending down low normal today at 3.3. Onetime KCL 10 mEq today. Recheck tomorrow. No BM since admission. Magnesium citrate today. # PPX: Cross covered with warfarin. Pharmacy to dose. close monitoring for signs of bleeding. Close monitoring of hemoglobin. # Code status: FULL. # Emergency contact: , who will be updated by nursing staff following rounds. # Disposition: Continue inpatient status. Patient has had a slow clinical response, likely due to underlying comorbidities. Patient requires continued inpatient management for medication adjustment with close patient monitoring and lab follow-up. Anticipate eventual return to SNF. Plan today -- Targeted antimicrobial therapy. add atypical coverage Azithromycin 500mg IV today. Start PO Augmentin. If no clinical improvement, consider CT of chest. -- Add ESR and CRP. strep pneumoniae. mycoplasma pneumoniae. --Magnesium Citrate today for bowel management. Stool for occult blood. --encourage p.o. intake
[2020-04-03] MEDS ORDERED: Sodium Chloride 0.9% 100 ML IV SCH (14:00)
[2020-04-03] MEDS ORDERED: Amoxicillin/Clavulanate K 875-125 MG Tab PO SCH (14:00)
[2020-04-03] MEDS ORDERED: Amoxicillin/Clavulanate K 875-125 MG Tab PO ONE (14:30)
[2020-04-03] MEDS: oxyCODONE 5 MG Tab PO PRN (14:44)
[2020-04-03] MEDS ORDERED: Magnesium Citrate Solution 296 ML Bottle PO ONE (15:55)
[2020-04-03] MEDS ORDERED: WARFARIN NO DOSE TODAY PO ONE (18:00)
[2020-04-03] MEDS: Mirtazapine 15 MG Tab PO SCH (21:43)
[2020-04-03] MEDS: Simvastatin 20 MG Tab PO SCH (21:44)
[2020-04-03] MEDS: Amoxicillin/Clavulanate K 875-125 MG Tab PO SCH (21:44)
[2020-04-04 07:56] LABS: ANION GAP 15.6 mmol/L (5-15); CHLORIDE,CL 100 mmol/L (98-115); SODIUM,NA 139 mmol/L (136-145)
[2020-04-04] MEDS: Insulin Aspart 100 Units/ML 3 ML Pen SUBCUT SCH ×4 (08:11→22:00)
[2020-04-04] MEDS: Nicotine 21 MG/24 Hr Patch TRDERM SCH (08:49)
[2020-04-04] MEDS: Amoxicillin/Clavulanate K 875-125 MG Tab PO SCH ×2 (08:49→22:04)
[2020-04-04] MEDS: oxyCODONE 5 MG Tab PO SCH ×2 (08:49→22:06)
[2020-04-04] MEDS: Folic Acid 1 MG Tab PO SCH (08:49)
[2020-04-04] MEDS: Carboxymethylcellulose Sodium 0.5% Ophth Soln 15 ML Bottle EYEBOTH SCH (08:49)
[2020-04-04] MEDS: Hydrochlorothiazide 25 MG Tab PO SCH (08:50)
[2020-04-04] MEDS: Sertraline 50 MG Tab PO SCH (08:50)
[2020-04-04] MEDS: Lisinopril 20 MG Tab PO SCH (08:50)
[2020-04-04] MEDS: Metoprolol Succinate 25 MG Tab.ER PO SCH (08:50)
[2020-04-04] MEDS: Pantoprazole 40 MG Vial IVPUSH SCH ×2 (11:07→22:14)
[2020-04-04] MEDS: Sodium Chloride 0.9% 10 ML Syringe FLUSH PRN (11:10)
--- NOTE | 2020-04-04 12:44 | CT ---
[id number] CT/CTA Chest EXAM: CTA Chest CLINICAL DATA: NONRESOLVING PNEUMONIA,LEUKOCYTOSIS,RULE OUT PE. COMPARISON: Radiograph from March 2020. FINDINGS: LUNGS: Small bilateral pleural effusions and compresses/dependent atelectasis in the lower lobes. Subtle areas of nonmass-like geographic appearing central predominant groundglass parenchymal opacification in both lungs. No pneumothorax. No suspicious parenchymal nodularity. HEART AND GREAT VESSELS: Negative for pulmonary embolus. Cardiomegaly and mild central vascular congestion. Postsurgical change from prior coronary artery bypass graft. Coronary artery atherosclerosis. No pericardial effusion. MEDIASTINUM AND LYMPHATICS: No mediastinal or hilar lymphadenopathy. UPPER ABDOMINAL ORGANS: Small sliding-type hiatus hernia. BONES: Scattered changes of spondylosis in the spine. No fracture or osseous lesion. IMPRESSION: Changes of fluid retention the chest, including bilateral symmetric pleural effusions with dependent bilateral lower lobe atelectasis. Patchy areas of nonmass-like geographic appearing groundglass opacity in the central lungs extending into the upper lobes. Differential diagnosis includes pneumonia or early changes of parenchymal edema. Negative for pulmonary embolus. Abdelrahman Lombardo MD 04/04/20 [id number] Thank you for allowing us to participate in the care of your patient.
--- NOTE | 2020-04-04 14:40 | PCM.PN ---
- General Info Date of Service: 04/04/20 Functional Status: Denies: New Symptoms - Review of Systems General: Reports: Weakness, Fatigue, Chills. Denies: Fever HEENT: Reports: No Symptoms Pulmonary: Denies: Shortness of Breath, Cough, Sputum, Wheezing Cardiovascular: Reports: Edema (ankles). Denies: Chest Pain, Palpitations, Orthopnea Gastrointestinal: Denies: Abdominal Pain, Constipation, Diarrhea, Nausea, Vomiting Genitourinary: Reports: Incontinence Musculoskeletal: Reports: Neck Pain, Shoulder Pain, Back Pain Skin: Reports: No Symptoms Neurological: Reports: Pre-Existing Deficit. Denies: Headache Psychiatric: Reports: Depression - Patient Data Vitals - Most Recent: Last Vital Signs Temp 98.4 F 04/04/20 06:09 Pulse 73 04/04/20 08:50 Resp 16 04/04/20 06:09 BP 152/91 H 04/04/20 08:50 Pulse Ox 94 L 04/04/20 06:09 Weight - Most Recent: 179 lb 12.8 oz I&O - Last 24 Hours: Intake & Output 04/03/20 04/04/20 04/04/20 22:59 06:59 14:59 Intake Total 750 0 Output Total 150 50 Balance 600 -50 Lab Results Last 24 Hours: Laboratory Results - last 24 hr 04/03/20 04/03/20 04/03/20 Range/Units 07:20 07:20 17:50 WBC (5.00-10.00) 10^3/uL RBC (4.50-6.00) 10^6/uL Hgb (13.0-17.0) g/dL Hct (40.0-52.0) % MCV (82.0-92.0) fL MCH (27.0-31.0) pg MCHC (32.0-36.0) g/dL RDW (11.5-14.5) % Plt Count (150-400) 10^3/uL MPV (7.4-10.4) fL Immature Gran % (Auto) (0.0-5.0) % Neut % (Auto) (50.0-70.0) % Lymph % (Auto) (20.0-40.0) % Carlton % (Auto) (2.0-8.0) % Eos % (Auto) (1.0-3.0) % Baso % (Auto) (0.0-1.0) % Neut # (Auto) (2.50-7.00) 10^3/uL Lymph # (Auto) (1.00-4.00) 10^3/uL Carlton # (Auto) (0.10-0.80) 10^3/uL Eos # (Auto) (0.10-0.30) 10^3/uL Baso # (Auto) (0.00-0.10) 10^3/uL Immature Gran # (Auto) (0.00-0.50) 10^3/uL ESR 111 H (0-15) mm/hr PT (8.9-11.4) SEC INR (0.9-1.1) Sodium (136-145) mmol/L Potassium (3.3-5.3) mmol/L Chloride (98-115) mmol/L Carbon Dioxide (21.0-32.0) mmol/L Anion Gap (5-15) mmol/L BUN (6-25) mg/dL Creatinine (0.51-1.17) mg/dL Est Cr Clr Drug Dosing mL/min Estimated GFR (MDRD) mL/min Glucose (75 - 99) mg/dL POC Glucose 318 H (74-106) mg/dl Calcium (8.7-10.3) mg/dL Total Bilirubin (0.2-1.0) mg/dL AST (15-37) U/L ALT (12-78) U/L Alkaline Phosphatase (46-116) IU/L C-Reactive Protein 16.8 H (0.0-0.9) mg/dL Total Protein (6.4-8.2) g/dL Albumin (3.00-4.80) g/dL 04/03/20 04/04/20 04/04/20 Range/Units 21:37 07:27 07:27 WBC 18.13 H (5.00-10.00) 10^3/uL RBC 3.04 L (4.50-6.00) 10^6/uL Hgb 8.5 L (13.0-17.0) g/dL Hct 25.6 L (40.0-52.0) % MCV 84.2 (82.0-92.0) fL MCH 28.0 (27.0-31.0) pg MCHC 33.2 (32.0-36.0) g/dL RDW 15.1 H (11.5-14.5) % Plt Count 367 (150-400) 10^3/uL MPV 10.0 (7.4-10.4) fL Immature Gran % (Auto) 0.3 (0.0-5.0) % Neut % (Auto) 81.3 H (50.0-70.0) % Lymph % (Auto) 10.1 L (20.0-40.0) % Carlton % (Auto) 8.1 H (2.0-8.0) % Eos % (Auto) 0.0 L (1.0-3.0) % Baso % (Auto) 0.2 (0.0-1.0) % Neut # (Auto) 14.74 H (2.50-7.00) 10^3/uL Lymph # (Auto) 1.84 (1.00-4.00) 10^3/uL Carlton # (Auto) 1.46 H (0.10-0.80) 10^3/uL Eos # (Auto) 0.00 L (0.10-0.30) 10^3/uL Baso # (Auto) 0.03 (0.00-0.10) 10^3/uL Immature Gran # (Auto) 0.06 (0.00-0.50) 10^3/uL ESR (0-15) mm/hr PT 30.1 H (8.9-11.4) SEC INR 3.1 H (0.9-1.1) Sodium (136-145) mmol/L Potassium (3.3-5.3) mmol/L Chloride (98-115) mmol/L Carbon Dioxide (21.0-32.0) mmol/L Anion Gap (5-15) mmol/L BUN (6-25) mg/dL Creatinine (0.51-1.17) mg/dL Est Cr Clr Drug Dosing mL/min Estimated GFR (MDRD) mL/min Glucose (75 - 99) mg/dL POC Glucose 338 H (74-106) mg/dl Calcium (8.7-10.3) mg/dL Total Bilirubin (0.2-1.0) mg/dL AST (15-37) U/L ALT (12-78) U/L Alkaline Phosphatase (46-116) IU/L C-Reactive Protein (0.0-0.9) mg/dL Total Protein (6.4-8.2) g/dL Albumin (3.00-4.80) g/dL 04/04/20 04/04/20 04/04/20 Range/Units 07:27 07:27 07:27 WBC (5.00-10.00) 10^3/uL RBC (4.50-6.00) 10^6/uL Hgb (13.0-17.0) g/dL Hct (40.0-52.0) % MCV (82.0-92.0) fL MCH (27.0-31.0) pg MCHC (32.0-36.0) g/dL RDW (11.5-14.5) % Plt Count (150-400) 10^3/uL MPV (7.4-10.4) fL Immature Gran % (Auto) (0.0-5.0) % Neut % (Auto) (50.0-70.0) % Lymph % (Auto) (20.0-40.0) % Carlton % (Auto) (2.0-8.0) % Eos % (Auto) (1.0-3.0) % Baso % (Auto) (0.0-1.0) % Neut # (Auto) (2.50-7.00) 10^3/uL Lymph # (Auto) (1.00-4.00) 10^3/uL Carlton # (Auto) (0.10-0.80) 10^3/uL Eos # (Auto) (0.10-0.30) 10^3/uL Baso # (Auto) (0.00-0.10) 10^3/uL Immature Gran # (Auto) (0.00-0.50) 10^3/uL ESR 119 H (0-15) mm/hr PT (8.9-11.4) SEC INR (0.9-1.1) Sodium 139 (136-145) mmol/L Potassium 3.4 (3.3-5.3) mmol/L Chloride 100 (98-115) mmol/L Carbon Dioxide 26.8 (21.0-32.0) mmol/L Anion Gap 15.6 H (5-15) mmol/L BUN 16 (6-25) mg/dL Creatinine 0.93 (0.51-1.17) mg/dL Est Cr Clr Drug Dosing 64.90 mL/min Estimated GFR (MDRD) > 60 mL/min Glucose 230 H (75 - 99) mg/dL POC Glucose (74-106) mg/dl Calcium 8.6 L (8.7-10.3) mg/dL Total Bilirubin 0.4 (0.2-1.0) mg/dL AST 23 (15-37) U/L ALT 29 (12-78) U/L Alkaline Phosphatase 168 H (46-116) IU/L C-Reactive Protein 17.5 H (0.0-0.9) mg/dL Total Protein 5.7 L (6.4-8.2) g/dL Albumin 1.78 L (3.00-4.80) g/dL 04/04/20 04/04/20 Range/Units 07:51 11:52 WBC (5.00-10.00) 10^3/uL RBC (4.50-6.00) 10^6/uL Hgb (13.0-17.0) g/dL Hct (40.0-52.0) % MCV (82.0-92.0) fL MCH (27.0-31.0) pg MCHC (32.0-36.0) g/dL RDW (11.5-14.5) % Plt Count (150-400) 10^3/uL MPV (7.4-10.4) fL Immature Gran % (Auto) (0.0-5.0) % Neut % (Auto) (50.0-70.0) % Lymph % (Auto) (20.0-40.0) % Carlton % (Auto) (2.0-8.0) % Eos % (Auto) (1.0-3.0) % Baso % (Auto) (0.0-1.0) % Neut # (Auto) (2.50-7.00) 10^3/uL Lymph # (Auto) (1.00-4.00) 10^3/uL Carlton # (Auto) (0.10-0.80) 10^3/uL Eos # (Auto) (0.10-0.30) 10^3/uL Baso # (Auto) (0.00-0.10) 10^3/uL Immature Gran # (Auto) (0.00-0.50) 10^3/uL ESR (0-15) mm/hr PT (8.9-11.4) SEC INR (0.9-1.1) Sodium (136-145) mmol/L Potassium (3.3-5.3) mmol/L Chloride (98-115) mmol/L Carbon Dioxide (21.0-32.0) mmol/L Anion Gap (5-15) mmol/L BUN (6-25) mg/dL Creatinine (0.51-1.17) mg/dL Est Cr Clr Drug Dosing mL/min Estimated GFR (MDRD) mL/min Glucose (75 - 99) mg/dL POC Glucose 227 H 336 H (74-106) mg/dl Calcium (8.7-10.3) mg/dL Total Bilirubin (0.2-1.0) mg/dL AST (15-37) U/L ALT (12-78) U/L Alkaline Phosphatase (46-116) IU/L C-Reactive Protein (0.0-0.9) mg/dL Total Protein (6.4-8.2) g/dL Albumin (3.00-4.80) g/dL Jorge Results Last 24 Hours: Microbiology 03/29/20 21:25 Aerobic Blood Culture - Final Blood - Venous NO GROWTH AFTER 5 DAYS Anaerobic Blood Culture - Final NO GROWTH AFTER 5 DAYS 04/03/20 19:45 Stool Occult Blood (JORGE) - Final Stool / Feces Med Orders - Current: Current Medications Acetaminophen (Tylenol) 650 mg PO Q4H PRN PRN Reason: Pain (Mild 1-3)/fever Last Admin: 04/01/20 17:14 Dose: 650 mg Amoxicillin/Clavulanate Potassium (Augmentin 875 Mg/125 Mg) 1 tab PO 0900,2100 [facility] Last Admin: 04/04/20 08:49 Dose: 1 tab Artificial Tears (Refresh Tears 0.5%) 0 ml EYEBOTH DAILY TAMIR Last Admin: 04/04/20 08:49 Dose: 1 drop Folic Acid (Folic Acid) 1 mg PO DAILY [facility] Last Admin: 04/04/20 08:49 Dose: 1 mg Hydrochlorothiazide (Hydrochlorothiazide) 25 mg PO DAILY [facility] Last Admin: 04/04/20 08:50 Dose: 25 mg Sodium Chloride (Normal Saline) 100 mls @ 100 mls/hr IV ASDIRECTED [facility] Insulin Aspart (Novolog) 0 unit SUBCUT WITHMEALSANDBED [facility]; Protocol Last Admin: 04/04/20 12:01 Dose: 4 unit Lisinopril (Prinivil) 20 mg PO DAILY [facility] Last Admin: 04/04/20 08:50 Dose: 20 mg Metoprolol Succinate (Toprol Xl) 25 mg PO DAILY [facility] Last Admin: 04/04/20 08:50 Dose: 25 mg Mirtazapine (Remeron) 7.5 mg PO BEDTIME [facility] Last Admin: 04/03/20 21:43 Dose: 7.5 mg Nicotine (Habitrol) 21 mg TRDERM DAILY [facility] Last Admin: 04/04/20 08:49 Dose: 21 mg Oxycodone HCl (Oxycodone) 5 mg PO BID PRN PRN Reason: Pain Last Admin: 04/03/20 14:44 Dose: 5 mg Oxycodone HCl (Oxycodone) 10 mg PO BID [facility] Last Admin: 04/04/20 08:49 Dose: 10 mg Pantoprazole Sodium (Protonix Iv) 40 mg IVPUSH Q12H [facility] Last Admin: 04/04/20 11:07 Dose: 40 mg Polyethylene Glycol (Miralax) 17 gm PO DAILY PRN PRN Reason: Constipation Last Admin: 04/03/20 07:48 Dose: 17 gm Senna/Docusate Sodium (Senna Plus) 1 tab PO BEDTIME [facility] Last Admin: 04/03/20 21:42 Dose: 1 tab Sertraline HCl (Zoloft) 100 mg PO DAILY [facility] Last Admin: 04/04/20 08:50 Dose: 100 mg Simvastatin (Zocor) 20 mg PO BEDTIME [facility] Last Admin: 04/03/20 21:44 Dose: 20 mg Sodium Chloride (Saline Flush) 10 ml FLUSH Q8HR PRN PRN Reason: keep vein open Last Admin: 04/04/20 11:10 Dose: 10 ml Tizanidine HCl (Zanaflex) 2 mg PO DAILY PRN PRN Reason: Other Trazodone HCl (Trazodone) 50 mg PO BEDTIME PRN PRN Reason: Sleep Warfarin Sodium (Pharmacy To Dose - Warfarin) 1 dose .XX ASDIRECTED [facility] Warfarin Sodium (Coumadin) 2 mg PO MoFr@1800 [facility] Last Admin: 04/02/20 18:00 Dose: 2 mg Warfarin Sodium (Coumadin) 1 mg PO SuTuWeThSa@1800 [facility] Discontinued Medications Acetaminophen (Tylenol Extra Strength) 1,000 mg PO ONETIME ONE Stop: 03/29/20 21:09 Last Admin: 03/29/20 21:55 Dose: Not Given Acetaminophen (Tylenol) 650 mg PO NOW ONE Stop: 03/30/20 14:19 Last Admin: 03/30/20 14:33 Dose: 650 mg Acetaminophen (Tylenol Extra Strength) 1,000 mg PO ONETIME ONE Stop: 03/31/20 11:54 Last Admin: 03/31/20 13:59 Dose: 1,000 mg Amoxicillin/Clavulanate Potassium (Augmentin 875 Mg/125 Mg) 1 tab PO Q12H [facility] Last Admin: 04/03/20 15:13 Dose: Not Given Amoxicillin/Clavulanate Potassium (Augmentin 875 Mg/125 Mg) 1 tab PO ONETIME ONE Stop: 04/03/20 14:31 Last Admin: 04/03/20 14:43 Dose: 1 tab Famotidine (Pepcid) 20 mg PO DAILY [facility] Last Admin: 03/31/20 08:07 Dose: 20 mg Sodium Chloride (Normal Saline) 1,000 mls @ 500 drops/hr IV BOLUS ONE Stop: 03/31/20 03:06 Last Admin: 03/29/20 21:35 Dose: 500 drops/hr Piperacillin/Tazobactam/ (Dextrose 3.375 gm/ Premix) 50 mls @ 100 mls/hr IV ONETIME ONE Stop: 03/29/20 23:07 Last Admin: 03/29/20 23:12 Dose: 100 mls/hr Vancomycin HCl 1 gm/ Sodium (Chloride) 250 mls @ 167 mls/hr IV ONETIME ONE Stop: 03/30/20 00:07 Last Admin: 03/29/20 23:48 Dose: 167 mls/hr Sodium Chloride (Normal Saline) 1,000 mls @ 100 mls/hr IV ASDIRECTED [facility] Last Admin: 04/01/20 11:27 Dose: 100 mls/hr Piperacillin/Tazobactam/ (Dextrose 3.375 gm/ Premix) 50 mls @ 100 mls/hr IV Q6H [facility] Last Admin: 04/03/20 11:03 Dose: 100 mls/hr Vancomycin HCl 1.25 gm/ Sodium (Chloride) 250 mls @ 166.667 mls/hr IV Q24H [facility] Last Admin: 04/01/20 02:00 Dose: Not Given Sodium Chloride (Normal Saline) 250 mls @ 150 mls/hr IV ONETIME ONE Stop: 03/31/20 14:39 Last Admin: 03/31/20 14:40 Dose: 150 mls/hr Vancomycin HCl 1 gm/ Sodium (Chloride) 250 mls @ 125 mls/hr IV Q12H [facility] Last Admin: 04/03/20 08:12 Dose: 125 mls/hr Azithromycin 500 mg/ Sodium (Chloride) 250 mls @ 250 mls/hr IV ONETIME ONE Stop: 04/03/20 14:34 Last Admin: 04/03/20 14:43 Dose: 250 mls/hr Lisinopril (Prinivil) 20 mg PO DAILY [facility] Last Admin: 04/03/20 08:15 Dose: 20 mg Magnesium Citrate (Citrate Of Magnesia) 240 ml PO ONETIME ONE Stop: 03/30/20 11:12 Last Admin: 03/30/20 12:20 Dose: 240 ml Magnesium Citrate (Citrate Of Magnesia) 296 ml PO ONETIME ONE Stop: 04/03/20 15:56 Last Admin: 04/03/20 16:20 Dose: 296 ml Warfarin No Dose (Today) 0 each PO ONETIME ONE Stop: 04/03/20 18:01 Last Admin: 04/03/20 18:04 Dose: Not Given Potassium Chloride (Klor-Con 10) 10 meq PO ONETIME ONE Stop: 04/03/20 13:48 Last Admin: 04/03/20 14:42 Dose: 10 meq Sodium Biphosphate/Sodium Phosphate (Fleet Enema) 133 ml RECTAL ONETIME ONE Stop: 03/30/20 11:12 Last Admin: 03/30/20 13:30 Dose: 133 ml Sodium Chloride (Saline Flush) 10 ml FLUSH Q8HR PRN PRN Reason: keep vein open Vancomycin HCl (Pharmacy To Dose - Vancomycin) 1 dose .XX ASDIRECTED [facility] Warfarin Sodium (Coumadin) 2 mg PO ONETIME ONE Stop: 03/30/20 18:01 Last Admin: 03/30/20 18:04 Dose: 2 mg Warfarin Sodium (Coumadin) 1 mg PO ONETIME@1800 [facility] Last Admin: 03/31/20 18:04 Dose: 1 mg Warfarin Sodium (Coumadin) 1 mg PO SuTuWeThSa@1800 [facility] Last Admin: 04/01/20 18:10 Dose: 1 mg - Exam Quality Assessment: No: Supplemental Oxygen General: Alert. No: Oriented Neck: Supple, No JVD Lungs: Normal Respiratory Effort, Other (lower lobes mildly diminished.) Cardiovascular: Regular Rate, Irregular Rhythm GI/Abdominal Exam: Normal Bowel Sounds, Soft, Non-Tender, No Distention (Male) Exam: Deferred Extremities: Pedal Edema (trace pretibial pitting edema. mild ankle edema) Skin: Warm, Dry, Intact Neurological: No New Focal Deficit Psy/Mental Status: Alert, Depressed Sepsis Event Note - Evaluation Sepsis Screening Result: Severe Sepsis Risk - Focused Exam Vital Signs: Vital Signs Temp Pulse Pulse Resp BP BP Pulse Ox 04/04/20 08:50 73 152/91 H 04/04/20 06:09 98.4 F 98 16 143/80 H 94 L 04/04/20 03:12 99.2 F Date Exam was Performed: 04/07/20 Time Exam was Performed: 11:01 - Problem List Review Problem List Initiated/Reviewed/Updated: Yes - My Orders Last 24 Hours: My Active Orders 04/03/20 14:00 Sodium Chloride 0.9% [Normal Saline] 100 ml IV ASDIRECTED 04/03/20 14:18 STREP PNEUMONIAE ANTIGEN [MREF] Routine 04/03/20 21:00 Amoxicillin/Clavulanate K [Augmentin 875 MG/125 MG] 1 tab PO 899,2099 - Plan Plan:: HPI summary: Mr. Ernst is an 84yoM with a history notable for CAD, atrial fibrillation, DMT2, and recurrent falls recently admitted to [facility] who complained of increased weakness and was noted to have temperature of 100.9. He was transferred to the ED via EMS. No other notable symptoms were noted on initial presentation. Notable ED findings and management: VS T 38.2, P 92, R 22, BP 100/47 WBC 9.16, neutrophils 78.5 Anion gap 17.6 Lactic acid 3.6 INR 1.2 COVID negative EKG atrial fibrillation without notable ST changes CXR bibasilar infiltrates NS 1L bolus Zosyn 3.375g Vancomycin 1g Hospital course: 03/30: Afebrile since admission. VS normalized. Respiratory status reassuring. WBC increased. Hgb dropped, see more detailed discussion below. Lactic acidosis resolved. R wrist swollen with patient reported onset >1 week ago with fall and recent improvement, but no prior wrist XR noted. 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 EKG and troponin completed and unremarkable. Vital signs stable, afebrile. AM troponin 0.04. Respiratory status continues to remain stable. CBC today shows further increase in WBC to 16.8 with neutrophilia 78.8. He was transfused with one unit last evening and Hgb shows marginal improvement at 7.7 , Hct 23.6. Initial FOB test negative. Unknown source for bleeding. He has been receiving NS @ 100mL/hr. Na level has increased to 150. Repeat PRBC transfusion today with repeat labs two hours after. 04/02: Continued WBC elevation. Afebrile. Repeat chest x-ray completed with increased hilar and bibasal parenchymal opacities with effusions. Cardiomegaly and central vascular congestion. 04/03: no overnight calls or concerns. WBC count slight improvement today from 17.12 to 16.62. Patients mood is down today. 04/04: No overnight calls or concerns. WBC elevation with continued upward trend. hemodynamically/clinically stable. Will proceed with CT of the chest due to delayed clinical response and increasing WBC count. Acute hospitalization problems #Leukocytosis, Pneumonia, bibasilar- repeat chest x-ray 04/02/20 with increased hilar and bibasal parenchymal opacities with effusions. Cardiomegaly and central vascular congestion. Clinical picture not fitting with CHF/overload picture. De-escalation and targeted antimicrobial therapy and coverage for atypical pathogens 04/03/20. IV azithromycin 500mg daily and Augmentin PO. ESR and CRP elevation. Strep pneumoniae antigen today. Mycoplasma titer. Procalcitonin not done due to 72 hour lab delay. I/S encouragement. CT of the chest today given delayed clinical response and increasing WBC. #Anemia; Initial hgb on admission 12 with notable drop to 6.9, He was transfused 1 unit PRBC on 03/30/2020 with increase in Hgb to 7.9 post transfusion , however subsequent drop to 7.7 on 03/31/20 with another 1 Unit PRBC transfused. Hemoglobin 9.4 corresponding hematocrit 28, elevated haptoglobin--likely due to pneumonia less likely hemolytic. Hemoglobin stable 8.5. - Continue pantoprazole 40mg IV BID - FOBT x 2 negative. - Monitor for bleeding burden -Low daily circulating iron, retic count pending # Constipation: Magnesium citrate given 04/03/20 with good response. - Continue outpatient Senna-docusate and PEG prn # Supratherapeutic INR - Warfarin per pharmacy #tobacco dependence- NRT with nicotine patch. # R wrist edema and pain, right wrist x-ray shows no acute fracture and osteoarthritis, Uric acid 4 # Hx recurrent falls- fall precautions. Hospitalization problems, Resolved # Severe sepsis, now resolved, blood cultures negative. # Lactic acidosis, resolved # Hyponatremia, resolved # Hypernatremia, resolved Chronic, stable conditions: # CAD with hx CABG / Atrial fibrillation: Continue metoprolol succinate 25mg. Anticoagulation, as above. # HTN: lisinopril 20mg, hold HCTZ 25mg, and furosemide 20mg for now # GERD: Changed outpatient famotidine 20mg to PPI, as above. # DMT2: A1cs consistently in the high 6s, with last 6.7 10/2019. Low dose insulin sliding scale while in hospital. HOLD metformin [address] with contrast 04/04/20 # HLD: Continue simvastatin 20mg. # Chronic back pain: Continue oxycodone 10mg BID and 5mg prn, Tylenol prn, tizanidine prn. # Anxiety / Insomnia: Continue sertraline 100mg, mirtazapine 7.5mg, trazodone 50mg prn. Hospitalization details: # FEN: IVF SL. Potasium 3.4. hypocalcemia with normal corrected calcium. sodium normalized. Last BM 04/03/20. Poor appetite/oral intake. protein supplementation. # PPX: Cross covered with warfarin. Pharmacy to dose. close monitoring for signs of bleeding. Close monitoring of hemoglobin. # Code status: FULL. # Emergency contact: updated on plan of care and is in agreement. Plan today -- CT of chest today with contrast showing patchy area of nonmass-like geographic appearing ground glass opacity in the central lungs extending to upper lobes. small bilateral symmetrical pleural effusions with dependent bilateral atelectasis. Negative for PE -- HOLD home metformin [address] with contrast. -- Consultation through [place] one call. Spoke with Dr. Nolasco (hospitalist ) regarding patient, who feels continued WBC elevation is felt to be a delayed stress reaction in the setting of overall stable patient/clinical status. He is in agreement with de-escalation current antibiotic regimen with recommendation of no more than 7 days of antimicrobial therapy. No transfer or alternative management recommended or necessary at this time unless change in patient status. -- Continue azithromycin and Augmentin --encourage p.o. intake -- consider further outpatient GI work-up Disposition: Continue inpatient status. Patient has had a slow clinical response , likely due to underlying comorbidities. Patient requires continued inpatient management for medication adjustment with close patient monitoring and lab follow-up. Anticipate discharge to SNF tomorrow.
[2020-04-04] MEDS ORDERED: Azithromycin 500 MG in Sodium Chloride 0.9% 250 ML IV ONE (14:51)
[2020-04-04] MEDS: Mirtazapine 15 MG Tab PO SCH (22:07)
[2020-04-04] MEDS: Simvastatin 20 MG Tab PO SCH (22:08)
[2020-04-05 08:00] LABS: ANION GAP 16.7 mmol/L (5-15); CHLORIDE,CL 100 mmol/L (98-115); SODIUM,NA 140 mmol/L (136-145)
[2020-04-05] MEDS: Insulin Aspart 100 Units/ML 3 ML Pen SUBCUT SCH ×2 (08:10→12:03)
[2020-04-05] MEDS: Sodium Chloride 0.9% 10 ML Syringe FLUSH PRN (08:44)
[2020-04-05] MEDS: Sertraline 50 MG Tab PO SCH (08:45)
[2020-04-05] MEDS: Folic Acid 1 MG Tab PO SCH (08:45)
[2020-04-05] MEDS: Amoxicillin/Clavulanate K 875-125 MG Tab PO SCH (08:45)
[2020-04-05] MEDS: Hydrochlorothiazide 25 MG Tab PO SCH (08:45)
[2020-04-05] MEDS: oxyCODONE 5 MG Tab PO SCH (08:46)
[2020-04-05] MEDS: Metoprolol Succinate 25 MG Tab.ER PO SCH (08:46)
[2020-04-05] MEDS: Lisinopril 20 MG Tab PO SCH (08:46)
[2020-04-05] MEDS: Nicotine 21 MG/24 Hr Patch TRDERM SCH (08:50)
[2020-04-05] MEDS: Carboxymethylcellulose Sodium 0.5% Ophth Soln 15 ML Bottle EYEBOTH SCH (08:52)
[2020-04-05] MEDS ORDERED: Metoprolol Succinate 25 MG Tab.ER PO ONE (10:53)
--- NOTE | 2020-04-05 10:55 | PCM.DCSUM1 ---
<Cheryl Blum - Last Filed: 04/05/20 12:01> Discharge Summary - Discharge Data Discharge Disposition: DC/Tfer to SNF 03 Condition: Fair - Referral to Home Health Primary Care Physician: Anne Sawant MD - Patient Summary/Data Consults: Consultations 04/01/20 11:38 Consult to Physical Therapy [PT Evaluation and Treatment] [CONS] Routine - Discharge Plan Prescriptions/Med Rec: Amoxicillin/Clavulanate K [Augmentin 875-125 MG] 1 tab PO 0900,2100 2 Days #4 tablet Azithromycin 250 mg PO DAILY 2 Days #2 tablet Metoprolol Succinate [Toprol XL] 37.5 mg PO DAILY #45 tab.er Omeprazole 20 mg PO ACBREAKFAST #30 cap.sr Home Medications: Home Meds Hydrochlorothiazide 25 mg PO DAILY 06/22/14 [History] Sertraline HCl 100 mg PO DAILY 06/22/14 [History] Simvastatin 20 mg PO BEDTIME 06/22/14 [History] lisinopriL [Prinivil] 20 mg PO DAILY 06/22/14 [History] oxyCODONE HCl [Oxycodone HCl] 10 mg PO BID 06/22/14 [History] metFORMIN [Glucophage] 1,000 mg PO BIDMEALS 05/22/16 [History] Folic Acid 1 mg PO DAILY 02/28/18 [History] Mirtazapine 7.5 mg PO BEDTIME 02/28/18 [History] Acetaminophen [Tylenol] 650 mg PO Q4H PRN 01/27/20 [History] Furosemide 20 mg PO ASDIRECTED 01/27/20 [History] tiZANidine [Zanaflex] 2 mg PO DAILY PRN 01/27/20 [History] traZODone HCl [Trazodone HCl] 50 mg PO BEDTIME PRN 01/27/20 [History] Carboxymethylcellulose Sodium [Refresh Tears] 1 drop EYEBOTH DAILY 03/16/20 [ History] Sennosides/Docusate Sodium [Senna-S Laxative Tablet] 1 each PO BEDTIME 03/16/20 [History] Warfarin [Coumadin] 1 mg PO ASDIRECTED 03/16/20 [History] oxyCODONE 5 mg PO BID PRN 03/16/20 [History] Magnesium Hydroxide [Milk of Magnesia] 30 ml PO DAILY PRN 03/29/20 [History] Acetaminophen [Tylenol] 650 mg PO Q4H PRN tablet 04/05/20 [Rx] Amoxicillin/Clavulanate K [Augmentin 875-125 MG] 1 tab PO 0900,2100 2 Days #4 tablet 04/05/20 [Rx] Azithromycin 250 mg PO DAILY 2 Days #2 tablet 04/05/20 [Rx] Metoprolol Succinate [Toprol XL] 37.5 mg PO DAILY #45 tab.er 04/05/20 [Rx] Omeprazole 20 mg PO ACBREAKFAST #30 cap.sr 04/05/20 [Rx] Pharmacy to Dose - Warfarin 1 dose .XX ASDIRECTED each 04/05/20 [Rx] lisinopriL [Prinivil] 20 mg PO DAILY tablet 04/05/20 [Rx] polyethylene glycoL 3350 [MiraLAX] 17 g PO DAILY #30 04/05/20 [Rx] Referrals: Anne Sawant MD [Primary Care Provider] - (Follow up on next Four rounds. Lab on 04/08/2020, orders in [facility]) - Patient Data Vitals - Most Recent: Last Vital Signs Temp 99.5 F 04/05/20 06:25 Pulse 80 04/05/20 11:26 Resp 18 04/05/20 06:25 BP 146/94 H 04/05/20 11:26 Pulse Ox 97 04/05/20 06:25 I&O - Last 24 hours: Intake & Output 04/04/20 04/05/20 04/05/20 22:59 06:59 14:59 Intake Total 300 50 Balance 300 50 Lab Results - Last 24 hrs: Laboratory Results - last 24 hr 04/04/20 04/04/20 04/05/20 Range/Units 18:02 21:59 07:15 WBC (5.00-10.00) 10^3/uL RBC (4.50-6.00) 10^6/uL Hgb (13.0-17.0) g/dL Hct (40.0-52.0) % MCV (82.0-92.0) fL MCH (27.0-31.0) pg MCHC (32.0-36.0) g/dL RDW (11.5-14.5) % Plt Count (150-400) 10^3/uL MPV (7.4-10.4) fL Immature Gran % (Auto) (0.0-5.0) % Neut % (Auto) (50.0-70.0) % Lymph % (Auto) (20.0-40.0) % Addison % (Auto) (2.0-8.0) % Eos % (Auto) (1.0-3.0) % Baso % (Auto) (0.0-1.0) % Neut # (Auto) (2.50-7.00) 10^3/uL Lymph # (Auto) (1.00-4.00) 10^3/uL Addison # (Auto) (0.10-0.80) 10^3/uL Eos # (Auto) (0.10-0.30) 10^3/uL Baso # (Auto) (0.00-0.10) 10^3/uL Immature Gran # (Auto) (0.00-0.50) 10^3/uL PT 50.1 H D (8.9-11.4) SEC INR 5.2 H* (0.9-1.1) Sodium (136-145) mmol/L Potassium (3.3-5.3) mmol/L Chloride (98-115) mmol/L Carbon Dioxide (21.0-32.0) mmol/L Anion Gap (5-15) mmol/L BUN (6-25) mg/dL Creatinine (0.51-1.17) mg/dL Est Cr Clr Drug Dosing mL/min Estimated GFR (MDRD) mL/min Glucose (75 - 99) mg/dL POC Glucose 296 H 282 H (74-106) mg/dl Calcium (8.7-10.3) mg/dL Total Bilirubin (0.2-1.0) mg/dL AST (15-37) U/L ALT (12-78) U/L Alkaline Phosphatase (46-116) IU/L Total Protein (6.4-8.2) g/dL Albumin (3.00-4.80) g/dL 04/05/20 04/05/20 04/05/20 Range/Units 07:15 07:15 07:23 WBC 18.20 H (5.00-10.00) 10^3/uL RBC 2.93 L (4.50-6.00) 10^6/uL Hgb 8.2 L (13.0-17.0) g/dL Hct 24.7 L (40.0-52.0) % MCV 84.3 (82.0-92.0) fL MCH 28.0 (27.0-31.0) pg MCHC 33.2 (32.0-36.0) g/dL RDW 15.3 H (11.5-14.5) % Plt Count 372 (150-400) 10^3/uL MPV 10.5 H (7.4-10.4) fL Immature Gran % (Auto) 0.4 (0.0-5.0) % Neut % (Auto) 81.8 H (50.0-70.0) % Lymph % (Auto) 9.8 L (20.0-40.0) % Addison % (Auto) 7.7 (2.0-8.0) % Eos % (Auto) 0.1 L (1.0-3.0) % Baso % (Auto) 0.2 (0.0-1.0) % Neut # (Auto) 14.91 H (2.50-7.00) 10^3/uL Lymph # (Auto) 1.78 (1.00-4.00) 10^3/uL Addison # (Auto) 1.40 H (0.10-0.80) 10^3/uL Eos # (Auto) 0.01 L (0.10-0.30) 10^3/uL Baso # (Auto) 0.03 (0.00-0.10) 10^3/uL Immature Gran # (Auto) 0.07 (0.00-0.50) 10^3/uL PT (8.9-11.4) SEC INR (0.9-1.1) Sodium 140 (136-145) mmol/L Potassium 3.5 (3.3-5.3) mmol/L Chloride 100 (98-115) mmol/L Carbon Dioxide 26.8 (21.0-32.0) mmol/L Anion Gap 16.7 H (5-15) mmol/L BUN 16 (6-25) mg/dL Creatinine 0.94 (0.51-1.17) mg/dL Est Cr Clr Drug Dosing 64.21 mL/min Estimated GFR (MDRD) > 60 mL/min Glucose 223 H (75 - 99) mg/dL POC Glucose 229 H (74-106) mg/dl Calcium 8.8 (8.7-10.3) mg/dL Total Bilirubin 0.4 (0.2-1.0) mg/dL AST 25 (15-37) U/L ALT 26 (12-78) U/L Alkaline Phosphatase 138 H (46-116) IU/L Total Protein 5.6 L (6.4-8.2) g/dL Albumin 1.75 L (3.00-4.80) g/dL 04/05/20 Range/Units 11:32 WBC (5.00-10.00) 10^3/uL RBC (4.50-6.00) 10^6/uL Hgb (13.0-17.0) g/dL Hct (40.0-52.0) % MCV (82.0-92.0) fL MCH (27.0-31.0) pg MCHC (32.0-36.0) g/dL RDW (11.5-14.5) % Plt Count (150-400) 10^3/uL MPV (7.4-10.4) fL Immature Gran % (Auto) (0.0-5.0) % Neut % (Auto) (50.0-70.0) % Lymph % (Auto) (20.0-40.0) % Addison % (Auto) (2.0-8.0) % Eos % (Auto) (1.0-3.0) % Baso % (Auto) (0.0-1.0) % Neut # (Auto) (2.50-7.00) 10^3/uL Lymph # (Auto) (1.00-4.00) 10^3/uL Addison # (Auto) (0.10-0.80) 10^3/uL Eos # (Auto) (0.10-0.30) 10^3/uL Baso # (Auto) (0.00-0.10) 10^3/uL Immature Gran # (Auto) (0.00-0.50) 10^3/uL PT (8.9-11.4) SEC INR (0.9-1.1) Sodium (136-145) mmol/L Potassium (3.3-5.3) mmol/L Chloride (98-115) mmol/L Carbon Dioxide (21.0-32.0) mmol/L Anion Gap (5-15) mmol/L BUN (6-25) mg/dL Creatinine (0.51-1.17) mg/dL Est Cr Clr Drug Dosing mL/min Estimated GFR (MDRD) mL/min Glucose (75 - 99) mg/dL POC Glucose 439 H (74-106) mg/dl Calcium (8.7-10.3) mg/dL Total Bilirubin (0.2-1.0) mg/dL AST (15-37) U/L ALT (12-78) U/L Alkaline Phosphatase (46-116) IU/L Total Protein (6.4-8.2) g/dL Albumin (3.00-4.80) g/dL Med Orders - Current: Current Medications Acetaminophen (Tylenol) 650 mg PO Q4H PRN PRN Reason: Pain (Mild 1-3)/fever Last Admin: 04/01/20 17:14 Dose: 650 mg Amoxicillin/Clavulanate Potassium (Augmentin 875 Mg/125 Mg) 1 tab PO 0900,2100 [facility] Last Admin: 04/05/20 08:45 Dose: 1 tab Artificial Tears (Refresh Tears 0.5%) 0 ml EYEBOTH DAILY [facility] Last Admin: 04/05/20 08:52 Dose: 1 drop Folic Acid (Folic Acid) 1 mg PO DAILY [facility] Last Admin: 04/05/20 08:45 Dose: 1 mg Hydrochlorothiazide (Hydrochlorothiazide) 25 mg PO DAILY [facility] Last Admin: 04/05/20 08:45 Dose: 25 mg Sodium Chloride (Normal Saline) 100 mls @ 100 mls/hr IV ASDIRECTED [facility] Last Admin: 04/04/20 15:59 Dose: 100 mls/hr Insulin Aspart (Novolog) 0 unit SUBCUT WITHMEALSANDBED [facility]; Protocol Last Admin: 04/05/20 08:10 Dose: 2 unit Lisinopril (Prinivil) 20 mg PO DAILY [facility] Last Admin: 04/05/20 08:46 Dose: 20 mg Metoprolol Succinate (Toprol Xl) 25 mg PO DAILY [facility] Last Admin: 04/05/20 08:46 Dose: 25 mg Mirtazapine (Remeron) 7.5 mg PO BEDTIME [facility] Last Admin: 04/04/20 22:07 Dose: 7.5 mg Nicotine (Habitrol) 21 mg TRDERM DAILY [facility] Last Admin: 04/05/20 08:50 Dose: 21 mg Oxycodone HCl (Oxycodone) 5 mg PO BID PRN PRN Reason: Pain Last Admin: 04/03/20 14:44 Dose: 5 mg Oxycodone HCl (Oxycodone) 10 mg PO BID [facility] Last Admin: 04/05/20 08:46 Dose: 10 mg Pantoprazole Sodium (Protonix Iv) 40 mg IVPUSH Q12H [facility] Last Admin: 04/05/20 11:24 Dose: 40 mg Polyethylene Glycol (Miralax) 17 gm PO DAILY PRN PRN Reason: Constipation Last Admin: 04/03/20 07:48 Dose: 17 gm Senna/Docusate Sodium (Senna Plus) 1 tab PO BEDTIME [facility] Last Admin: 04/04/20 22:08 Dose: 1 tab Sertraline HCl (Zoloft) 100 mg PO DAILY [facility] Last Admin: 04/05/20 08:45 Dose: 100 mg Simvastatin (Zocor) 20 mg PO BEDTIME [facility] Last Admin: 04/04/20 22:08 Dose: 20 mg Sodium Chloride (Saline Flush) 10 ml FLUSH Q8HR PRN PRN Reason: keep vein open Last Admin: 04/05/20 08:44 Dose: 10 ml Tizanidine HCl (Zanaflex) 2 mg PO DAILY PRN PRN Reason: Other Trazodone HCl (Trazodone) 50 mg PO BEDTIME PRN PRN Reason: Sleep Warfarin Sodium (Pharmacy To Dose - Warfarin) 1 dose .XX ASDIRECTED [facility] Discontinued Medications Acetaminophen (Tylenol Extra Strength) 1,000 mg PO ONETIME ONE Stop: 03/29/20 21:09 Last Admin: 03/29/20 21:55 Dose: Not Given Acetaminophen (Tylenol) 650 mg PO NOW ONE Stop: 03/30/20 14:19 Last Admin: 03/30/20 14:33 Dose: 650 mg Acetaminophen (Tylenol Extra Strength) 1,000 mg PO ONETIME ONE Stop: 03/31/20 11:54 Last Admin: 03/31/20 13:59 Dose: 1,000 mg Amoxicillin/Clavulanate Potassium (Augmentin 875 Mg/125 Mg) 1 tab PO Q12H [facility] Last Admin: 04/03/20 15:13 Dose: Not Given Amoxicillin/Clavulanate Potassium (Augmentin 875 Mg/125 Mg) 1 tab PO ONETIME ONE Stop: 04/03/20 14:31 Last Admin: 04/03/20 14:43 Dose: 1 tab Famotidine (Pepcid) 20 mg PO DAILY [facility] Last Admin: 03/31/20 08:07 Dose: 20 mg Sodium Chloride (Normal Saline) 1,000 mls @ 500 drops/hr IV BOLUS ONE Stop: 03/31/20 03:06 Last Admin: 03/29/20 21:35 Dose: 500 drops/hr Piperacillin/Tazobactam/ (Dextrose 3.375 gm/ Premix) 50 mls @ 100 mls/hr IV ONETIME ONE Stop: 03/29/20 23:07 Last Admin: 03/29/20 23:12 Dose: 100 mls/hr Vancomycin HCl 1 gm/ Sodium (Chloride) 250 mls @ 167 mls/hr IV ONETIME ONE Stop: 03/30/20 00:07 Last Admin: 03/29/20 23:48 Dose: 167 mls/hr Sodium Chloride (Normal Saline) 1,000 mls @ 100 mls/hr IV ASDIRECTED [facility] Last Admin: 04/01/20 11:27 Dose: 100 mls/hr Piperacillin/Tazobactam/ (Dextrose 3.375 gm/ Premix) 50 mls @ 100 mls/hr IV Q6H [facility] Last Admin: 04/03/20 11:03 Dose: 100 mls/hr Vancomycin HCl 1.25 gm/ Sodium (Chloride) 250 mls @ 166.667 mls/hr IV Q24H [facility] Last Admin: 04/01/20 02:00 Dose: Not Given Sodium Chloride (Normal Saline) 250 mls @ 150 mls/hr IV ONETIME ONE Stop: 03/31/20 14:39 Last Admin: 03/31/20 14:40 Dose: 150 mls/hr Vancomycin HCl 1 gm/ Sodium (Chloride) 250 mls @ 125 mls/hr IV Q12H [facility] Last Admin: 04/03/20 08:12 Dose: 125 mls/hr Azithromycin 500 mg/ Sodium (Chloride) 250 mls @ 250 mls/hr IV ONETIME ONE Stop: 04/03/20 14:34 Last Admin: 04/03/20 14:43 Dose: 250 mls/hr Azithromycin 500 mg/ Sodium (Chloride) 250 mls @ 250 mls/hr IV DAILY ONE Stop: 04/04/20 15:50 Last Admin: 04/04/20 15:59 Dose: 250 mls/hr Lisinopril (Prinivil) 20 mg PO DAILY [facility] Last Admin: 04/03/20 08:15 Dose: 20 mg Magnesium Citrate (Citrate Of Magnesia) 240 ml PO ONETIME ONE Stop: 03/30/20 11:12 Last Admin: 03/30/20 12:20 Dose: 240 ml Magnesium Citrate (Citrate Of Magnesia) 296 ml PO ONETIME ONE Stop: 04/03/20 15:56 Last Admin: 04/03/20 16:20 Dose: 296 ml Metoprolol Succinate (Toprol Xl) 12.5 mg PO ONETIME ONE Stop: 04/05/20 10:54 Last Admin: 04/05/20 11:26 Dose: 12.5 mg Warfarin No Dose (Today) 0 each PO ONETIME ONE Stop: 04/03/20 18:01 Last Admin: 04/03/20 18:04 Dose: Not Given Potassium Chloride (Klor-Con 10) 10 meq PO ONETIME ONE Stop: 04/03/20 13:48 Last Admin: 04/03/20 14:42 Dose: 10 meq Sodium Biphosphate/Sodium Phosphate (Fleet Enema) 133 ml RECTAL ONETIME ONE Stop: 03/30/20 11:12 Last Admin: 03/30/20 13:30 Dose: 133 ml Sodium Chloride (Saline Flush) 10 ml FLUSH Q8HR PRN PRN Reason: keep vein open Vancomycin HCl (Pharmacy To Dose - Vancomycin) 1 dose .XX ASDIRECTED [facility] Warfarin Sodium (Coumadin) 2 mg PO ONETIME ONE Stop: 03/30/20 18:01 Last Admin: 03/30/20 18:04 Dose: 2 mg Warfarin Sodium (Coumadin) 1 mg PO [email or web address] [facility] Last Admin: 03/31/20 18:04 Dose: 1 mg Warfarin Sodium (Coumadin) 2 mg PO [email or web address] [facility] Last Admin: 04/02/20 18:00 Dose: 2 mg Warfarin Sodium (Coumadin) 1 mg PO [email or web address] [facility] Last Admin: 04/01/20 18:10 Dose: 1 mg Warfarin Sodium (Coumadin) 1 mg PO [email or web address] [facility] Last Admin: 04/04/20 18:06 Dose: 1 mg <Tressa Anthony M - Last Filed: 04/06/20 11:34> Discharge Summary - Hospital Course Free Text/Narrative:: Date of admission: 03/29/2020 Date of discharge: 04/05/2020 Admission diagnoses: # Severe sepsis, resolved # Lactic acidosis, resolved # Hyponatremia, resolved # Hypernatremia, resolved # Leukocytosis # Anemia, normocytic, normochromic with anisocytosis # Constipation: resolved # Supratherapeutic INR, resolved # tobacco dependence # R wrist edema and pain # Hx recurrent falls Discharge diagnoses: # Severe sepsis, resolved # Lactic acidosis, resolved # Hyponatremia, resolved # Hypernatremia, resolved # Leukocytosis # Anemia, normocytic, normochromic with anisocytosis # Constipation: resolved # Supratherapeutic INR, resolved # tobacco dependence # R wrist edema and pain # Hx recurrent falls # CAD with hx CABG / Atrial fibrillation # HTN # GERD # DMT2 # HLD # Chronic back pain # Anxiety / Insomnia Consultations: none Procedures: none Hospital course: 03/29: Admitted inpatient from the ED via EMS for fever and weakness. VS T 38.2 , P 92, R 22, BP 100/47. WBC 9.16, neutrophils 78.5. Anion gap 17.6. Lactic acid 3.6. INR 1.2. COVID negative. EKG atrial fibrillation without notable ST changes. CXR bibasilar infiltrates. NS 1L bolus. Zosyn 3.375g. Vancomycin 1g. 03/30: Afebrile since admission. VS normalized. Respiratory status reassuring. WBC increased. Hgb dropped, see more detailed discussion below. Lactic acidosis resolved. R wrist swollen with patient reported onset >1 week ago with fall and recent improvement, but no prior wrist XR noted. 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 EKG and troponin completed and unremarkable. Vital signs stable, afebrile. AM troponin 0.04. Respiratory status continues to remain stable. CBC today shows further increase in WBC to 16.8 with neutrophilia 78.8. He was transfused with one unit last evening and Hgb shows marginal improvement at 7.7 , Hct 23.6. Initial FOB test negative. Unknown source for bleeding. He has been receiving NS @ 100mL/hr. Na level has increased to 150. Repeat PRBC transfusion today with repeat labs two hours after. 04/02: Continued WBC elevation. Afebrile. Repeat chest x-ray completed with increased hilar and bibasal parenchymal opacities with effusions. Cardiomegaly and central vascular congestion. 04/03: no overnight calls or concerns. WBC count slight improvement today from 17.12 to 16.62. Patients mood is down today. 04/04: No overnight calls or concerns. WBC elevation with continued upward trend. hemodynamically/clinically stable. Will proceed with CT of the chest due to delayed clinical response and increasing WBC count. 04/05: No overnight calls or concerns. Tachy and irregular today. EKG completed showing atrial fibrillation at a rate of 117. Metoprolol succinate increased to 37.5mg oral. INR 5.2. WBC elevation continues to have slight upward trend, however he has been on antibiotics and I suspect this is a lagging indicator. He is noted to have clinical improvement, but worsening mood. Upon review of baseline blood counts in [facility] he does appear to have a high WBC on a regular basis. He is ready for discharge back to [facility] with close monitoring of lab and patient condition. Discharge and follow-up recommendations: - Discharge to [facility] senior living facility - New medications at discharge: - Azithromycin 250mg orally daily and Augmentin 875/125mg orally twice daily each for two additional days. - Increase metoprolol succinate to 37.5mg daily - Omprazole 20mg daily - Miralax daily - Hold metformin and warfarin until 04/06/2020 - He was continued on other medications for chronic medical conditions - Follow-up - On care home rounds - INR on 04/06/2020, [place] [facility] to monitor - Lab on 04/08/2020 - Discharge Data Discharge Date: 04/05/20 - Referral to Home Health Primary Care Physician: Anne Sawant MD - Patient Summary/Data Consults: Consultations 04/01/20 11:38 Consult to Physical Therapy [PT Evaluation and Treatment] [CONS] Routine - Discharge Plan *PRESCRIPTION DRUG MONITORING PROGRAM REVIEWED*: Yes *COPY OF PRESCRIPTION DRUG MONITORING REPORT IN PATIENT SANCHEZ: No (reviewed in Epic) - Discharge Summary/Plan Comment DC Time >30 min.: Yes - General Info Date of Service: 04/05/20 Subjective Update: 84 year old male lying in bed in no acute distress. No overnight concerns. Mood is down. Concerned about . Wanting to go back to [place]. Functional Status: Reports: Pain Controlled, Tolerating Diet, Urinating. Denies : Ambulating - Review of Systems General: Reports: Weakness, Fatigue. Denies: Fever HEENT: Denies: Ear Pain, Headaches, Sore Throat Pulmonary: Denies: Shortness of Breath, Cough, Sputum Cardiovascular: Denies: Chest Pain, Palpitations, Lightheadedness Gastrointestinal: Denies: Abdominal Pain, Constipation, Diarrhea, Nausea, Vomiting Genitourinary: Reports: Incontinence. Denies: Dysuria, Hematuria Musculoskeletal: Reports: Shoulder Pain (chronic), Back Pain (chronic), Other ( right shoulder pain - chronic) Skin: Denies: Dryness, Bruising, Rash Neurological: Reports: Confusion (mild intermittent). Denies: Headache, Trouble Speaking Psychiatric: Reports: Confusion (mild intermittent), Depression, Mood Lability - Patient Data Vitals - Most Recent: Last Vital Signs Temp 37.5 C 04/05/20 06:25 Pulse 110 H 04/05/20 08:46 Resp 18 04/05/20 06:25 BP 123/54 L 04/05/20 08:46 Pulse Ox 97 04/05/20 06:25 Weight - Most Recent: 81.556 kg I&O - Last 24 hours: Intake & Output 04/04/20 04/05/20 04/05/20 22:59 06:59 14:59 Intake Total 300 50 Balance 300 50 Lab Results - Last 24 hrs: Laboratory Results - last 24 hr 04/04/20 04/04/20 04/04/20 Range/Units 11:52 18:02 21:59 WBC (5.00-10.00) 10^3/uL RBC (4.50-6.00) 10^6/uL Hgb (13.0-17.0) g/dL Hct (40.0-52.0) % MCV (82.0-92.0) fL MCH (27.0-31.0) pg MCHC (32.0-36.0) g/dL RDW (11.5-14.5) % Plt Count (150-400) 10^3/uL MPV (7.4-10.4) fL Immature Gran % (Auto) (0.0-5.0) % Neut % (Auto) (50.0-70.0) % Lymph % (Auto) (20.0-40.0) % Addison % (Auto) (2.0-8.0) % Eos % (Auto) (1.0-3.0) % Baso % (Auto) (0.0-1.0) % Neut # (Auto) (2.50-7.00) 10^3/uL Lymph # (Auto) (1.00-4.00) 10^3/uL Addison # (Auto) (0.10-0.80) 10^3/uL Eos # (Auto) (0.10-0.30) 10^3/uL Baso # (Auto) (0.00-0.10) 10^3/uL Immature Gran # (Auto) (0.00-0.50) 10^3/uL PT (8.9-11.4) SEC INR (0.9-1.1) Sodium (136-145) mmol/L Potassium (3.3-5.3) mmol/L Chloride (98-115) mmol/L Carbon Dioxide (21.0-32.0) mmol/L Anion Gap (5-15) mmol/L BUN (6-25) mg/dL Creatinine (0.51-1.17) mg/dL Est Cr Clr Drug Dosing mL/min Estimated GFR (MDRD) mL/min Glucose (75 - 99) mg/dL POC Glucose 336 H 296 H 282 H (74-106) mg/dl Calcium (8.7-10.3) mg/dL Total Bilirubin (0.2-1.0) mg/dL AST (15-37) U/L ALT (12-78) U/L Alkaline Phosphatase (46-116) IU/L Total Protein (6.4-8.2) g/dL Albumin (3.00-4.80) g/dL 04/05/20 04/05/20 04/05/20 Range/Units 07:15 07:15 07:15 WBC 18.20 H (5.00-10.00) 10^3/uL RBC 2.93 L (4.50-6.00) 10^6/uL Hgb 8.2 L (13.0-17.0) g/dL Hct 24.7 L (40.0-52.0) % MCV 84.3 (82.0-92.0) fL MCH 28.0 (27.0-31.0) pg MCHC 33.2 (32.0-36.0) g/dL RDW 15.3 H (11.5-14.5) % Plt Count 372 (150-400) 10^3/uL MPV 10.5 H (7.4-10.4) fL Immature Gran % (Auto) 0.4 (0.0-5.0) % Neut % (Auto) 81.8 H (50.0-70.0) % Lymph % (Auto) 9.8 L (20.0-40.0) % Addison % (Auto) 7.7 (2.0-8.0) % Eos % (Auto) 0.1 L (1.0-3.0) % Baso % (Auto) 0.2 (0.0-1.0) % Neut # (Auto) 14.91 H (2.50-7.00) 10^3/uL Lymph # (Auto) 1.78 (1.00-4.00) 10^3/uL Addison # (Auto) 1.40 H (0.10-0.80) 10^3/uL Eos # (Auto) 0.01 L (0.10-0.30) 10^3/uL Baso # (Auto) 0.03 (0.00-0.10) 10^3/uL Immature Gran # (Auto) 0.07 (0.00-0.50) 10^3/uL PT 50.1 H D (8.9-11.4) SEC INR 5.2 H* (0.9-1.1) Sodium 140 (136-145) mmol/L Potassium 3.5 (3.3-5.3) mmol/L Chloride 100 (98-115) mmol/L Carbon Dioxide 26.8 (21.0-32.0) mmol/L Anion Gap 16.7 H (5-15) mmol/L BUN 16 (6-25) mg/dL Creatinine 0.94 (0.51-1.17) mg/dL Est Cr Clr Drug Dosing 64.21 mL/min Estimated GFR (MDRD) > 60 mL/min Glucose 223 H (75 - 99) mg/dL POC Glucose (74-106) mg/dl Calcium 8.8 (8.7-10.3) mg/dL Total Bilirubin 0.4 (0.2-1.0) mg/dL AST 25 (15-37) U/L ALT 26 (12-78) U/L Alkaline Phosphatase 138 H (46-116) IU/L Total Protein 5.6 L (6.4-8.2) g/dL Albumin 1.75 L (3.00-4.80) g/dL 04/05/20 Range/Units 07:23 WBC (5.00-10.00) 10^3/uL RBC (4.50-6.00) 10^6/uL Hgb (13.0-17.0) g/dL Hct (40.0-52.0) % MCV (82.0-92.0) fL MCH (27.0-31.0) pg MCHC (32.0-36.0) g/dL RDW (11.5-14.5) % Plt Count (150-400) 10^3/uL MPV (7.4-10.4) fL Immature Gran % (Auto) (0.0-5.0) % Neut % (Auto) (50.0-70.0) % Lymph % (Auto) (20.0-40.0) % Addison % (Auto) (2.0-8.0) % Eos % (Auto) (1.0-3.0) % Baso % (Auto) (0.0-1.0) % Neut # (Auto) (2.50-7.00) 10^3/uL Lymph # (Auto) (1.00-4.00) 10^3/uL Addison # (Auto) (0.10-0.80) 10^3/uL Eos # (Auto) (0.10-0.30) 10^3/uL Baso # (Auto) (0.00-0.10) 10^3/uL Immature Gran # (Auto) (0.00-0.50) 10^3/uL PT (8.9-11.4) SEC INR (0.9-1.1) Sodium (136-145) mmol/L Potassium (3.3-5.3) mmol/L Chloride (98-115) mmol/L Carbon Dioxide (21.0-32.0) mmol/L Anion Gap (5-15) mmol/L BUN (6-25) mg/dL Creatinine (0.51-1.17) mg/dL Est Cr Clr Drug Dosing mL/min Estimated GFR (MDRD) mL/min Glucose (75 - 99) mg/dL POC Glucose 229 H (74-106) mg/dl Calcium (8.7-10.3) mg/dL Total Bilirubin (0.2-1.0) mg/dL AST (15-37) U/L ALT (12-78) U/L Alkaline Phosphatase (46-116) IU/L Total Protein (6.4-8.2) g/dL Albumin (3.00-4.80) g/dL Med Orders - Current: Current Medications Acetaminophen (Tylenol) 650 mg PO Q4H PRN PRN Reason: Pain (Mild 1-3)/fever Last Admin: 04/01/20 17:14 Dose: 650 mg Amoxicillin/Clavulanate Potassium (Augmentin 875 Mg/125 Mg) 1 tab PO 0900,2100 [facility] Last Admin: 04/05/20 08:45 Dose: 1 tab Artificial Tears (Refresh Tears 0.5%) 0 ml EYEBOTH DAILY [facility] Last Admin: 04/05/20 08:52 Dose: 1 drop Folic Acid (Folic Acid) 1 mg PO DAILY [facility] Last Admin: 04/05/20 08:45 Dose: 1 mg Hydrochlorothiazide (Hydrochlorothiazide) 25 mg PO DAILY [facility] Last Admin: 04/05/20 08:45 Dose: 25 mg Sodium Chloride (Normal Saline) 100 mls @ 100 mls/hr IV ASDIRECTED [facility] Last Admin: 04/04/20 15:59 Dose: 100 mls/hr Insulin Aspart (Novolog) 0 unit SUBCUT WITHMEALSANDBED [facility]; Protocol Last Admin: 04/05/20 08:10 Dose: 2 unit Lisinopril (Prinivil) 20 mg PO DAILY [facility] Last Admin: 04/05/20 08:46 Dose: 20 mg Metoprolol Succinate (Toprol Xl) 25 mg PO DAILY [facility] Last Admin: 04/05/20 08:46 Dose: 25 mg Metoprolol Succinate (Toprol Xl) 12.5 mg PO ONETIME ONE Stop: 04/05/20 10:54 Mirtazapine (Remeron) 7.5 mg PO BEDTIME [facility] Last Admin: 04/04/20 22:07 Dose: 7.5 mg Nicotine (Habitrol) 21 mg TRDERM DAILY [facility] Last Admin: 04/05/20 08:50 Dose: 21 mg Oxycodone HCl (Oxycodone) 5 mg PO BID PRN PRN Reason: Pain Last Admin: 04/03/20 14:44 Dose: 5 mg Oxycodone HCl (Oxycodone) 10 mg PO BID [facility] Last Admin: 04/05/20 08:46 Dose: 10 mg Pantoprazole Sodium (Protonix Iv) 40 mg IVPUSH Q12H [facility] Last Admin: 04/04/20 22:14 Dose: 40 mg Polyethylene Glycol (Miralax) 17 gm PO DAILY PRN PRN Reason: Constipation Last Admin: 04/03/20 07:48 Dose: 17 gm Senna/Docusate Sodium (Senna Plus) 1 tab PO BEDTIME [facility] Last Admin: 04/04/20 22:08 Dose: 1 tab Sertraline HCl (Zoloft) 100 mg PO DAILY [facility] Last Admin: 04/05/20 08:45 Dose: 100 mg Simvastatin (Zocor) 20 mg PO BEDTIME [facility] Last Admin: 04/04/20 22:08 Dose: 20 mg Sodium Chloride (Saline Flush) 10 ml FLUSH Q8HR PRN PRN Reason: keep vein open Last Admin: 04/05/20 08:44 Dose: 10 ml Tizanidine HCl (Zanaflex) 2 mg PO DAILY PRN PRN Reason: Other Trazodone HCl (Trazodone) 50 mg PO BEDTIME PRN PRN Reason: Sleep Warfarin Sodium (Pharmacy To Dose - Warfarin) 1 dose .XX ASDIRECTED [facility] Discontinued Medications Acetaminophen (Tylenol Extra Strength) 1,000 mg PO ONETIME ONE Stop: 03/29/20 21:09 Last Admin: 03/29/20 21:55 Dose: Not Given Acetaminophen (Tylenol) 650 mg PO NOW ONE Stop: 03/30/20 14:19 Last Admin: 03/30/20 14:33 Dose: 650 mg Acetaminophen (Tylenol Extra Strength) 1,000 mg PO ONETIME ONE Stop: 03/31/20 11:54 Last Admin: 03/31/20 13:59 Dose: 1,000 mg Amoxicillin/Clavulanate Potassium (Augmentin 875 Mg/125 Mg) 1 tab PO Q12H [facility] Last Admin: 04/03/20 15:13 Dose: Not Given Amoxicillin/Clavulanate Potassium (Augmentin 875 Mg/125 Mg) 1 tab PO ONETIME ONE Stop: 04/03/20 14:31 Last Admin: 04/03/20 14:43 Dose: 1 tab Famotidine (Pepcid) 20 mg PO DAILY [facility] Last Admin: 03/31/20 08:07 Dose: 20 mg Sodium Chloride (Normal Saline) 1,000 mls @ 500 drops/hr IV BOLUS ONE Stop: 03/31/20 03:06 Last Admin: 03/29/20 21:35 Dose: 500 drops/hr Piperacillin/Tazobactam/ (Dextrose 3.375 gm/ Premix) 50 mls @ 100 mls/hr IV ONETIME ONE Stop: 03/29/20 23:07 Last Admin: 03/29/20 23:12 Dose: 100 mls/hr Vancomycin HCl 1 gm/ Sodium (Chloride) 250 mls @ 167 mls/hr IV ONETIME ONE Stop: 03/30/20 00:07 Last Admin: 03/29/20 23:48 Dose: 167 mls/hr Sodium Chloride (Normal Saline) 1,000 mls @ 100 mls/hr IV ASDIRECTED [facility] Last Admin: 04/01/20 11:27 Dose: 100 mls/hr Piperacillin/Tazobactam/ (Dextrose 3.375 gm/ Premix) 50 mls @ 100 mls/hr IV Q6H [facility] Last Admin: 04/03/20 11:03 Dose: 100 mls/hr Vancomycin HCl 1.25 gm/ Sodium (Chloride) 250 mls @ 166.667 mls/hr IV Q24H [facility] Last Admin: 04/01/20 02:00 Dose: Not Given Sodium Chloride (Normal Saline) 250 mls @ 150 mls/hr IV ONETIME ONE Stop: 03/31/20 14:39 Last Admin: 03/31/20 14:40 Dose: 150 mls/hr Vancomycin HCl 1 gm/ Sodium (Chloride) 250 mls @ 125 mls/hr IV Q12H [facility] Last Admin: 04/03/20 08:12 Dose: 125 mls/hr Azithromycin 500 mg/ Sodium (Chloride) 250 mls @ 250 mls/hr IV ONETIME ONE Stop: 04/03/20 14:34 Last Admin: 04/03/20 14:43 Dose: 250 mls/hr Azithromycin 500 mg/ Sodium (Chloride) 250 mls @ 250 mls/hr IV DAILY ONE Stop: 04/04/20 15:50 Last Admin: 04/04/20 15:59 Dose: 250 mls/hr Lisinopril (Prinivil) 20 mg PO DAILY [facility] Last Admin: 04/03/20 08:15 Dose: 20 mg Magnesium Citrate (Citrate Of Magnesia) 240 ml PO ONETIME ONE Stop: 03/30/20 11:12 Last Admin: 03/30/20 12:20 Dose: 240 ml Magnesium Citrate (Citrate Of Magnesia) 296 ml PO ONETIME ONE Stop: 04/03/20 15:56 Last Admin: 04/03/20 16:20 Dose: 296 ml Warfarin No Dose (Today) 0 each PO ONETIME ONE Stop: 04/03/20 18:01 Last Admin: 04/03/20 18:04 Dose: Not Given Potassium Chloride (Klor-Con 10) 10 meq PO ONETIME ONE Stop: 04/03/20 13:48 Last Admin: 04/03/20 14:42 Dose: 10 meq Sodium Biphosphate/Sodium Phosphate (Fleet Enema) 133 ml RECTAL ONETIME ONE Stop: 03/30/20 11:12 Last Admin: 03/30/20 13:30 Dose: 133 ml Sodium Chloride (Saline Flush) 10 ml FLUSH Q8HR PRN PRN Reason: keep vein open Vancomycin HCl (Pharmacy To Dose - Vancomycin) 1 dose .XX ASDIRECTED [facility] Warfarin Sodium (Coumadin) 2 mg PO ONETIME ONE Stop: 03/30/20 18:01 Last Admin: 03/30/20 18:04 Dose: 2 mg Warfarin Sodium (Coumadin) 1 mg PO ONETIME@1800 [facility] Last Admin: 03/31/20 18:04 Dose: 1 mg Warfarin Sodium (Coumadin) 2 mg PO MoFr@1800 [facility] Last Admin: 04/02/20 18:00 Dose: 2 mg Warfarin Sodium (Coumadin) 1 mg PO SuTuWeThSa@1800 [facility] Last Admin: 04/01/20 18:10 Dose: 1 mg Warfarin Sodium (Coumadin) 1 mg PO SuTuWeThSa@1800 [facility] Last Admin: 04/04/20 18:06 Dose: 1 mg - Exam Physical Findings Comments:: GENERAL: Well-appearing adult, lying in bed, in no acute distress. HEENT: Normocephalic, atraumatic. Conjunctiva clear. Nares patent without discharge. Mucous membranes moist, posterior pharynx unremarkable. NECK: Supple, no masses. CV: Irregular rate and rhythm, tachy, no murmurs, rubs, or gallops. 2+ radial pulses. PULMONARY: Normal effort, clear to auscultation bilaterally, no wheezes, rales, or rhonchi. ABDOMEN: Positive bowel sounds, soft, nontender, nondistended. EXTREMITIES: 1+ LLE edema, cyanosis, or clubbing. MUSCULOSKELETAL: Moves all extremities well. NEUROLOGICAL: Mild transient confusion, reorients easily. No obvious deficits. DERMATOLOGIC: No rashes or suspicious lesions in exposed areas. PSYCHIATRIC: Alert, decreased mood, appropriate affect.
[2020-04-05] MEDS: Pantoprazole 40 MG Vial IVPUSH SCH (11:24)
[2020-04-05 14:43] VITALS: BP 151/80; PULSE 90
[2020-04-05] MEDS: oxyCODONE 5 MG Tab PO PRN (14:43)
== END 2020-04-05 15:30 | DRG 871 ==
LOC: KA.ED 21:00 → KA.MS 23:00 → UNDOADMIN 03-30 00:50
PROVIDERS: ADMIT Physician Assistant Medical; ATTEND Family Medicine
PROC: 8E0ZXY6 Isolation (ICD-10-PCS; 2020-03-29)
PROC: 30233N1 Transfusion of Nonautologous Red Blood Cells into Peripheral Vein, Percutaneous Approach (ICD-10-PCS; principal; 2020-03-30)
DX: J84.9 Interstitial pulmonary disease, unspecified (principal); R74.0 Nonspecific elevation of levels of transaminase and lactic acid dehydrogenase [LDH]; A41.9 Sepsis, unspecified organism; J18.9 Pneumonia, unspecified organism; E87.1 Hypo-osmolality and hyponatremia; E87.0 Hyperosmolality and hypernatremia; E87.2 Acidosis; E78.00 Pure hypercholesterolemia, unspecified; R65.20 Severe sepsis without septic shock; D64.9 Anemia, unspecified; K59.00 Constipation, unspecified; Z20.828 Contact with and (suspected) exposure to other viral communicable diseases; R79.1 Abnormal coagulation profile; F17.200 Nicotine dependence, unspecified, uncomplicated; R29.6 Repeated falls; I25.10 Atherosclerotic heart disease of native coronary artery without angina pectoris; I48.91 Unspecified atrial fibrillation; I10 Essential (primary) hypertension; K21.9 Gastro-esophageal reflux disease without esophagitis; E11.9 Type 2 diabetes mellitus without complications; E78.5 Hyperlipidemia, unspecified; G89.29 Other chronic pain; M54.9 Dorsalgia, unspecified; F41.9 Anxiety disorder, unspecified; G47.00 Insomnia, unspecified; F51.9 Sleep disorder not due to a substance or known physiological condition, unspecified; H91.90 Unspecified hearing loss, unspecified ear; H54.7 Unspecified visual loss; K59.09 Other constipation; M19.90 Unspecified osteoarthritis, unspecified site; M10.9 Gout, unspecified; F32.9 Major depressive disorder, single episode, unspecified; Z86.74 Personal history of sudden cardiac arrest; Z98.49 Cataract extraction status, unspecified eye; Z98.52 Vasectomy status; Z95.1 Presence of aortocoronary bypass graft; Z79.84 Long term (current) use of oral hypoglycemic drugs; Z79.899 Other long term (current) drug therapy; Z79.01 Long term (current) use of anticoagulants; Z86.718 Personal history of other venous thrombosis and embolism; I25.2 Old myocardial infarction; Z87.01 Personal history of pneumonia (recurrent); Z86.73 Personal history of transient ischemic attack (TIA), and cerebral infarction without residual deficits; Z90.49 Acquired absence of other specified parts of digestive tract; Z98.1 Arthrodesis status
CPT/HCPCS: 36415; 36416; 36430; 71045; 71260; 73100-RT; 73110-RT; 80048; 80053; 80202; 81001; 82272; 82550; 82553; 82728; 82962; 83010; 83540; 83550; 83605; 84145; 84484; 84550; 85014; 85018; 85025; 85027; 85046; 85610; 85651; 85730; 86140; 86738; 86850; 86900; 86901; 86920; 86922; 87040; 87086; 87804; 87899; 93005; 97162-GP; 99284; 99285-25; A9270-GY; C9113; J0456; J1815-GY; J2543; J3370; J7030; J7050; P9016; U0002